=== PATIENT | male | born 1950 | race Caucasian/White ===

== ENCOUNTER 2019-09-07 04:36 | Observation (INO) | payer MEDICARE, SELFPAY ==
[2019-09-07] VITALS (7 sets, daily range): BP systolic 158–180; BP diastolic 78–89; PULSE 56–69; RESP 16–19; TEMP 36.1–36.9; O2SAT 97–100; BMI 35.6
--- NOTE | 2019-09-07 | ECHO_ITS ---
Patient Info Name: Charles Purcell Age: 69 years : 1950 Gender: Male Ht: 68 in Wt: 234 lbs BSA: 2.30 m2 HR: 64 bpm BP: 172 / 86 mmHg Technical Quality: Good Exam Date: 09/07/2019 9:35 AM Exam Location: [facility] Patient Status: Inpatient Admit Date: 09/07/2019 Staff Ordering Physician: Darien Galdamez MD Training And Development Professional: Manju Maurer RDCS Attending Provider: Clement Figueroa MD Exam Type: CA echo doppler color flow Study Info Indications R07.89 - Other chest pain Complete two-dimensional, color flow and Doppler transthoracic echocardiogram is performed. Summary 1. Normal LV size, moderate LVH, normal LV systolic function, ejection fraction 55-60%; indeterminate diastolic function. Trivial MR. Sclerotic, trileaflet aortic valve with normal leaflet mobility, Doppler not performed to the aortic valve. Trivial TR, RVSP about 28 mmHg. Left Ventricle Left ventricular chamber dimension is normal. Left ventricular systolic function is normal, estimated at 55-60%. There is moderately increased left ventricular wall thickness. Left ventricular septal wall motion is normal. The left ventricular diastolic function is indeterminate. Right Ventricle Right ventricular chamber dimension is normal. Right ventricular systolic function is normal. Left Atria Left atrial chamber dimension is mildly enlarged. Right Atria Right atrial chamber dimension is normal. Aortic Valve The aortic valve is trileaflet. There is mild aortic valve sclerosis. There is no aortic valve stenosis. There is no aortic valve regurgitation. Pulmonic Valve The pulmonic valve is normal. There is trace pulmonic regurgitation. Mitral Valve The mitral valve has normal leaflets. There is trace mitral valve regurgitation. Tricuspid Valve The tricuspid valve leaflets are normal. There is trace tricuspid valve regurgitation. No pulmonary hypertension, estimated pulmonary arterial systolic pressure is 28 mmHg. Pericardium/Pleural The pericardium appears normal. There is no pericardial effusion. Aorta The aortic root size at the sinus of Valsalva is normal. The prox ascending aorta size is normal. Tricuspid Valve Name Value Normal TV Regurgitation Doppler TR Peak Velocity 225 cm/s TR Peak Gradient 18 mmHg Estimated PAP/RSVP RA Pressure 8 mmHg <=5 PA Systolic Pressure 28 mmHg <36 RV Systolic Pressure 28 mmHg <36 Report Signatures
--- NOTE | ~2019-09-07 | XR_ITS ---
EXAMINATION: XR chest 2V DATE: 09/07/2019 05:15 INDICATION: Chest pain. TECHNIQUE: Frontal and lateral views of the chest were obtained. COMPARISON: Chest 2 views 08/02/2017 FINDINGS: The chest demonstrates clear lungs without pneumonia, pleural effusion, or pneumothorax. Th e heart size is normal. Calcified right hilar lymph nodes are consistent with old granulomatous disea se. IMPRESSION: 1. No acute cardiopulmonary disease. Reviewed, dictated and finalized at location A.
--- NOTE | 2019-09-07 05:36 | ECG_ITS ---
Measurements Intervals [place] Rate: 64 P: 33 ND: 157 QRS: -25 QRSD: 100 T: -35 QT: 419 QTc: 432 Interpretive Statements SINUS RHYTHM VENTRICULAR PREMATURE COMPLEX POSSIBLE LEFT ATRIAL ENLARGEMENT POSSIBLE LEFT VENTRICULAR HYPERTROPHY BORDERLINE T WAVE ABNORMALITY- INF/LAT LEADS BASELINE WANDER- I, II, AVR, AVL, V1-V3 BORDERLINE ECG Electronically Signed On 09-07-2019 7:01:02 CDT by Rocky Naidu D.O.
[2019-09-07 05:40] LABS: Basophils Percent Auto 0.6 % (0.2-1.2); Eosinophils Absolute Auto 0.1 K/mm3 (0-0.3); Hematocrit 42.5 % (42.0-52.0); Hemoglobin 13.7 g/dL (14.0-18.0); Immature Granulocyte Absolute 0.02 K/mm3 (0.00-0.031); Immature Granulocyte Percent A 0.3 % (0-0.5); Lymphocytes Absolute Auto 1.85 K/mm3 (0.9-3.2); Lymphocytes Percent Auto 26.3 % (18.3-44.2); Mean Corpuscular HGB Conc 32.2 g/dl (32-36); Mean Corpuscular Volume 93.2 fl (80-100); Mean Platelet Volume 11.3 fl (7.4-10.4); Monocytes Absolute Auto 0.8 K/mm3 (0.1-0.6); Monocytes Percent Auto 11.7 % (2.6-8.5); Neutrophils Absolute Auto 4.2 K/mm3 (1.3-6.7); Neutrophils Percent Auto 59.1 % (45.5-73.1); Platelet Count Result 218 k/mm3 (150-375); Red Blood Count 4.56 M/mm3 (4.6-6.20); Red Cell Distribution Width 13.5 % (11.5-14.5)
[2019-09-07 05:53] LABS: Alanine Aminotransferase 18 U/L (4-50); Albumin Level 3.9 g/dL (3.5-5.1); Alkaline Phosphatase 30 U/L (38-126); Aspartate Amino Transferase 23 U/L (17-59); Bilirubin,Total 0.3 mg/dL (0.2-1.3); Blood Urea Nitrogen 14 mg/dL (9-20); Calcium 8.9 mg/dL (8.4-10.2); Carbon Dioxide 30 mmol/L (22-30); Chloride 100 mmol/L (98-107); Estimated Glomerular Filt Rate > 60; Glucose 144 mg/dL (75-110); Potassium 3.7 mmol/L (3.4-5.0); Sodium 137 mmol/L (137-145)
--- NOTE | 2019-09-07 05:54 | ED.CHESTPAIN ---
HPI - Chest Pain General Chief Complaint: Chest Pain <Andrew Adams MD - Last Filed: 09/08/19 04:22> Stated Complaint: pain behind the boobs <Andrew Adams MD - Last Filed: 09/08/19 04:22> Time Seen by Provider: 09/07/19 05:06 <Andrew Adams MD - Last Filed: 09/08/19 04:22> History of Present Illness HPI narrative: Patient is a 69-year-old male who presents the ER with chest pain. Been intermittent over the last 3 days. Will last anywhere from 5 minutes to 60 minutes. Is directly behind his boobs. Denies exertional component. Patient reports he is under increased stress as his has stage IV breast cancer. He reports he returned from [facility] 10 days ago. Denies any infectious symptoms. Has not found an aggravating or alleviating component to it. No h/o [place]. <Andrew Adams MD - Last Filed: 09/08/19 04:22> Related Data Home Medications: Home Medications Medication Instructions Recorded Confirmed Glucosamine Complex-MSM 1 cap PO DAILY 09/07/19 09/07/19 lisinopril-hydrochlorothiazide 1 tablet PO DAILY 09/07/19 09/07/19 <Andrew Adams MD - Last Filed: 09/08/19 04:22> Allergies/Adverse Reactions: Allergies Allergy/AdvReac Type Severity Reaction Status Date / Time No Known Allergies Allergy Mild Verified 09/07/19 10:03 <Andrew Adams MD - Last Filed: 09/08/19 04:22> Review of Systems Review of Systems: All systems reviewed & are unremarkable except as noted in HPI and below <Andrew Adams MD - Last Filed: 09/08/19 04:22> Constitutional: Constitutional: Denies chills, Denies fever(s) and Denies weakness <Andrew Adams MD - Last Filed: 09/08/19 04:22> ENT: Denies nasal congestion and Denies sore throat <Andrew Adams MD - Last Filed: 09/08/19 04:22> Cardiovascular: Cardiovascular: Reports chest pain and Denies radiating jaw, neck or arm pain <Andrew Adams MD - Last Filed: 09/08/19 04:22> Respiratory: Respiratory: Denies cough, Denies dyspnea and Denies wheezing <Andrew Adams MD - Last Filed: 09/08/19 04:22> Gastrointestinal: Gastrointestinal: Denies abdominal pain, Denies nausea and Denies vomiting <Andrew Adams MD - Last Filed: 09/08/19 04:22> PMFSH Past Medical History Medical History: Medical History (Updated 09/07/19 @ 18:10 by Clement Figueroa MD) BPH (benign prostatic hyperplasia) Hypertension Hypertension <Andrew Adams MD - Last Filed: 09/08/19 04:22> Surgical History Surgical History: Surgical History (Updated 09/07/19 @ 09:28 by Clement Figueroa MD) H/O colonoscopy History of nasal septoplasty <Andrew Adams MD - Last Filed: 09/08/19 04:22> Family History Family History: Family History Other Hypertension <Andrew Adams MD - Last Filed: 09/08/19 04:22> Social History Social History: Social History (Updated 09/07/19 @ 09:31 by Clement Figueroa MD) 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 HEAD: Normocephalic, atraumatic. ENT: Mucous membranes moist. CHEST: Clear to auscultation. No respiratory distress. HEART: Regular rate and rhythm. Normal peripheral pulses. ABDOMEN: Soft, nontender, nondistended EXTREMITIES: Normal range of motion. No edema. SKIN: Warm, dry, no rash. NEURO: Alert and oriented x3. PSYCH: Normal mood and affect. <Andrew Adams
[2019-09-07 05:55] LABS: INR 0.9; Prothrombin Time 12.2 Seconds (11.1-14.7)
[2019-09-07 05:56] LABS: Partial Thromboplastin Time 28.1 SECONDS (22.3-36.8)
[2019-09-07 06:06] LABS: Troponin I < 0.012 ng/mL (0.000-0.034)
[2019-09-07] MEDS: lisinopriL 20 MG TABLET PO (06:55)
[2019-09-07] MEDS: ASPIRIN 81 MG CHEWABLE TABLET 324 MG PO (06:55)
[2019-09-07] MEDS: hydroCHLOROthiazide 12.5 MG CAPSULE PO (07:04)
--- NOTE | 2019-09-07 08:44 | PM.CNCAR ---
Assessment and Plan Assessment and plan (1) Chest pain: Code(s): R07.9 - Chest pain, unspecified Status: Acute Assessment and Plan: 69-year-old male with no known prior cardiac history; history of hypertension, BPH presents with 3-4 day history of intermittent chest discomfort, not related to exertion. First set of troponins negative. EKG shows sinus rhythm, nonspecific T-wave abnormality in the inferolateral leads. Patient reports psychosocial stress related to illness of his . -trend troponins -will check echocardiogram with Doppler to assess LV function and wall motion. If echocardiogram is grossly unremarkable and 2nd set of troponins negative, then patient may be discharged home with an outpatient follow-up. Need for further ischemic workup will be based on patient's clinical course. (2) Hypertension: Code(s): I10 - Essential (primary) hypertension Status: Acute Assessment and Plan: Optimal blood pressure control History of Present Illness History of Present Illness Consult date/time: 09/07/19 08:44 Date of consult 09/07/2019 Reason for consult: Chest pain Requesting physician:Dr Perdomo Chief complaint: Chest pain HPI: 69-year-old male with hypertension, BPH. Patient was admitted to [facility] on 09/06/2020 complaints of chest discomfort. Patient states that he has been experiencing chest discomfort for 3-4 days, which she describes as dull aching sensation in the left mammary area, localized, not associated with shortness of breath, palpitation, dizziness or syncope. He has had intermittent episodes of chest discomfort over last 3-4 days, each time lasting for up to 2 hours, not related to exertion. Patient states that he recently traveled to [place] for about 10 days ago, however denies any sick contacts. He denies any fever, chills, cough, sore throat or nasal congestion. Patient denies any prior cardiac history. Patient states that he is undergoing emotional stress due to the illness of his . He thinks that his symptoms are triggered by ongoing emotional stress. Patient's EKG on this admission which I personally evaluated showed sinus rhythm, PVC, LVH, T-wave abnormality in the inferolateral leads. Troponin x1 is negative. Chest x-ray reportedly shows Calcified right hilar lymph nodes are consistent with old granulomatous disease, no active disease. Reason For Visit: chest pain/Hypertension Review of Systems Constitutional: Constitutional: Denies chills, Denies fatigue, Denies fever(s) and Denies headache(s) Eyes: Eyes: Reports as per HPI, Denies change in vision, Denies loss of vision and Denies eye pain ENT: Reports as per HPI, Reports Normal hearing present, Denies headache(s), Denies lip swelling, Denies epistaxis and Denies sore throat Cardiovascular: Cardiovascular: Reports as per HPI, Reports chest pain, Denies syncope, Denies irregular heart rhythm, Denies lightheadedness and Denies dyspnea Respiratory: Respiratory: Reports as per HPI, Denies cough, Denies dyspnea and Denies wheezing Gastrointestinal: Gastrointestinal: Reports as per HPI, Denies abdominal pain, Denies melena, Denies nausea and Denies vomiting Genitourinary: Genitourinary: Reports as per HPI Musculoskeletal: Musculoskeletal: Reports as per HPI, Denies myalgias, Denies muscle cramps and Denies muscle weakness Integumentary/Breasts: Skin/Breast: Reports as per HPI, Denies pruritus and Denies rash Neurologic: Reports as per HPI, Reports Normal hearing present, Denies behavioral changes, Denies syncope, Denies headache(s) and Denies loss of vision Psychiatric: Psychiatric: Reports as per HPI, Reports anxiety, Denies behavioral changes, Denies depression and Reports other (Emotional stress due to illness of his ) Endocrine: Endocrine: Reports as per HPI, Denies fatigue, Denies polydipsia and Denies polyuria Hematologic/Lymphatic: Hematologic/Lymphatic: Reports as per HPI, Denies easy blee
[2019-09-07 09:29] LABS: Troponin I < 0.012 ng/mL (0.000-0.034)
--- NOTE | 2019-09-07 09:39 | PM.IMHP ---
H&P: HPI History of Present Illness Chief complaint: chest pain/Hypertension Narrative: Date of visit 09/06 0900. Charles Purcell is a 69 year old hypertensive white male came to the hospital for evaluation of chest discomfort. He describes the discomfort is someone pushing on his chest that is been occurring intermittently over the last 3-4 days lasting for short time upwards of 3 hours. No associated symptoms of shortness of breath, nausea ,or diaphoresis and no particular activity. Can occur at rest. Talked to a friend thought he should be evaluated and he was awake early this a.m. had had some discomfort then thought he would come in to be seen. The discomfort had not gotten any worse. He is a nonsmoker although has had secondhand exposure in the past with his 1st who of lung cancer and his father had heart disease and at age 69, but he was not sure if he had coronary disease. He has had hypertension but no history of diabetes or hyperlipidemia. Pain is not positional or associated with eating and has no reflux. Review of Systems Review of Systems: Narrative: Constitutional. Gained about 10 lb over last few months with less activity, no fever no chills. Had just returned from [place] about 10 days ago Eye no double vision scotoma Mouth no pharyngitis laryngitis Pulmonary no shortness of breath wheezing or cough CV no palpitations or pedal edema little bit has NC with the urination but has done much better since he has been on Flomax GI no melena no hematochezia has had 2 screening colonoscope sitter been negative Muscle skeletal bilateral knee discomfort when climbing stairs Integument no skin breakdown rashes Neuro psych stress recently with the illness of his and stage IV breast cancer No seizures no syncope PMFSH Past Medical History Medical History BPH (benign prostatic hyperplasia) Hypertension Hypertension Surgical History Surgical History (Updated 09/07/19 @ 09:28 by Clement Figueroa MD) H/O colonoscopy History of nasal septoplasty Family History Family History (Updated 09/07/19 @ 09:29 by Clement Figueroa MD) Father Heart disease Hypertension Mother No problems noted. 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: Never smoker Additional smoking assessment comments: smokes rare cigar and exposed to second hand smoke from first Alcohol intake: current Alcohol use details: Occasional alcohol Substance use: never Living arrangements: with family Gender identity (if verbalized by the patient): Male Meds Home Medications and Allergies Home Medications Medication Instructions Recorded Confirmed Type tamsulosin [Flomax] 0.4 mg PO DAILY #14 cap 06/17/19 Rx Allergies Allergy/AdvReac Type Severity Reaction Status Date / Time No Known Allergies Allergy Mild Verified 06/17/19 03:22 Vital Signs Vital Signs - 24 hr 09/07/19 05:02 09/07/19 05:57 09/07/19 06:51 Temperature 36.9 C Pulse Rate 69 60 61 Respiratory Rate 18 17 17 Blood Pressure 176/84 H 175/87 H 180/78 H Pulse Oximetry 100 99 97 09/07/19 07:55 09/07/19 08:10 Temperature 36.1 C L Pulse Rate 56 L 64 Respiratory Rate 19 16 Blood Pressure 158/89 H 172/86 H Pulse Oximetry 98 100 Exam Narrative: Exam Narrative: Blood pressure 160/84 left arm lying pulse is 72 and regular afebrile Pupils equal reactive to light sclera anicteric Neck no adenopathy thyromegaly carotid bruits Lungs clear CV regular rate rhythm no murmurs gallops rubs or clicks Abdomen is soft nontender obese no masses Extremities trace edema with indentation sock line, dorsalis pedis posterior tibial 2+ Neuro alert pleasant cooperative cranial nerves 2-12 are intact Integument no rashes are lesions Psych affect ap
[2019-09-07 11:53] LABS: Hemoglobin A1C 7.2 % (<5.7)
[2019-09-07 12:02] LABS: Troponin I < 0.012 ng/mL (0.000-0.034)
--- NOTE | 2019-09-07 18:06 | PM.DS ---
DS: Diagnosis Admitting Diagnosis Admitting Diagnosis: Chest pain, unspecified Discharge Diagnosis (1) Chest pain: Code(s): R07.9 - Chest pain, unspecified Status: Acute Assessment and Plan: Suggestive of cardiac pain but duration had no associated symptoms with the fact that the troponins her still negative makes cardiac etiology less likely. Cardiology saw and echo reveal LVH only, serial troponins are negative will discharge with possible out patient ischemic workup with cardiology to follow (2) Hypertension: Code(s): I10 - Essential (primary) hypertension Status: Acute Assessment and Plan: Pressure slightly elevated. Better than when he was in the ER after receiving lisinopril and hydrochlorothiazide there. Echo LVH present and will follow up with primary care (3) Elevated blood sugar: Code(s): R73.9 - Hyperglycemia, unspecified Status: Acute Assessment and Plan: Blood sugar on more than 1 draw was slightly elevated. A1c returned after he was discharged and was 7.2 . Will need follow-up with his primary care DS: Summary Hospital Course Hospital Course: 69-year-old hypertensive white male admitted with full pressure sensation in his chest intermittently less 3-4 days. No associated symptoms. EKG no definite ischemic changes just some nonspecific ST T wave. Echo LVH but no wall motion abnormalities and normal ejection fraction 65%. Seen by Cardiology and recommended he follow-up for possible outpatient ischemic workup Patient did admit to being under a fair amount of stress recently with illness of his Did add aspirin 81 mg to his regime, and follow-up with primary for blood pressure check also Time Spent with Patient Time attestation: Total time spent providing and/or coordinating discharge services:35 Exam Narrative: Exam Narrative: Condition on discharge Blood pressure 160/82 pulse is 70 afebrile Lungs clear Neck supple no adenopathy thyromegaly carotid bruits CV regular rate rhythm no murmurs Extremities without edema to minor trace edema DS: Data Data Completed and Pending Labs on day of discharge: Labs from last 24 hours 09/07/19 09/07/19 09/07/19 11:31 11:31 08:29 WBC RBC Hgb Hct MCV MCH MCHC RDW Plt Count MPV Immature Gran % (Auto) Neut % (Auto) Lymph % (Auto) [place] % (Auto) Eos % (Auto) Baso % (Auto) Lymph # (Auto) [place] # (Auto) Eos # (Auto) Baso # (Auto) Abs Immat Gran (auto) Absolute Neuts (auto) Absolute Nucleated RBC Nucleated RBC % PT INR APTT Sodium Potassium Chloride Carbon Dioxide BUN Creatinine Estim Creat Clear Calc Estimated GFR Glucose Hemoglobin A1c 7.2 H Calcium Total Bilirubin AST ALT Alkaline Phosphatase Troponin I < 0.012 < 0.012 Total Protein Albumin 09/07/19 09/07/19 09/07/19 05:31 05:31 05:31 WBC 7.0 RBC 4.56 L Hgb 13.7 L Hct 42.5 MCV 93.2 MCH 30.0 MCHC 32.2 RDW 13.5 Plt Count 218 MPV 11.3 H Immature Gran % (Auto) 0.3 Neut % (Auto) 59.1 Lymph % (Auto) 26.3 [place] % (Auto) 11.7 H Eos % (Auto) 2.0 Baso % (Auto) 0.6 Lymph # (Auto) 1.85 [place] # (Auto) 0.8 H Eos # (Auto) 0.1 Baso # (Auto) 0.0 Abs Immat Gran (auto) 0.02 Absolute Neuts (auto) 4.2 Absolute Nucleated RBC 0.0 Nucleated RBC % 0.0 PT 12.2 INR 0.9 APTT 28.1 Sodium 137 Potassium 3.7 Chloride 100 Carbon Dioxide 30 BUN 14 Creatinine 0.90 Estim Creat Clear Calc Not Reportable Estimated GFR > 60 Glucose 144 H Hemoglobin A1c Calcium 8.9 Total Bilirubin 0.3 AST 23 ALT 18 Alkaline Phosphatase 30 L Troponin I < 0.012 Total Protein 7.0 Albumin 3.9 Discharge Plan Discharge Attending physician on discharge: Clement Figueroa Consulting prov
== END 2019-09-07 11:45 | disposition home or self-care (01) ==
LOC: ANHED 07:39 → ANHIMU 07:43
PROVIDERS: Emergency Medicine; Admitting Provider Internal Medicine; Emergency Provider General Practice; Visit Provider Internal Medicine
DX: R07.9 Chest pain, unspecified (principal); I10 Essential (primary) hypertension; R73.9 Hyperglycemia, unspecified; N40.0 Benign prostatic hyperplasia without lower urinary tract symptoms; Z82.49 Family history of ischemic heart disease and other diseases of the circulatory system
CPT/HCPCS: 36415; 71046; 80053; 83036; 84484; 85025; 85610; 85730; 93005; 93306; 99285; A9270; G0378

== ENCOUNTER 2020-04-22 06:48 | Emergency (ER) | payer MEDICARE, SELFPAY ==
--- NOTE | ~2020-04-22 | US_ITS ---
EXAMINATION: US venous doppler LE RT EXAM DATE: 04/22/2020 10:12 INDICATION: TECHNIQUE: Multiple grayscale, color flow and Doppler images of the right lower extremity deep venous system were obtained and reviewed. There is no prior study for comparison. FINDINGS: The right common femoral, femoral and profunda veins demonstrate normal color flow, respira tory variation, augmentation and compressibility. Compressibility, color flow confirmed within the r ight popliteal, posterior tibial, peroneal, and greater saphenous veins. IMPRESSION: 1. No right lower extremity deep venous thrombosis. Reviewed, dictated and finalized at location A. [facility]ER[facility] DENTAL ASSISTANT RDA
[2020-04-22 06:54] VITALS: BP 178/97; PULSE 54; RESP 14; TEMP 35.9; O2SAT 100
[2020-04-22 08:45] LABS: Add Urine Microscopic? YES; Appearance Urine Clear (Clear); Basophils Absolute Auto 0.1 K/mm3 (0.0-0.1); Basophils Percent Auto 0.9 % (0.2-1.2); Bilirubin Urine Negative (Negative); Blood Urine Negative (Negative); Color Urine Yellow (Yellow); Eosinophils Absolute Auto 0.3 K/mm3 (0-0.3); Eosinophils Percent Auto 4.9 % (0-4.4); Glucose Urine UA 1+ mg/dL (Negative); Hematocrit 40.9 % (42.0-52.0); Hemoglobin 13.2 g/dL (14.0-18.0); Immature Granulocyte Absolute 0.02 K/mm3 (0.00-0.031); Immature Granulocyte Percent A 0.3 % (0-0.5); Ketones Urine Negative (Negative); Leukocyte Esterase Ur Negative LEU/UL (Negative); Lymphocytes Absolute Auto 1.76 K/mm3 (0.9-3.2); Lymphocytes Percent Auto 27.6 % (18.3-44.2); Mean Corpuscular HGB Conc 32.3 g/dl (32-36); Mean Corpuscular Hemoglobin 30.6 pg (26-34); Mean Corpuscular Volume 94.9 fl (80-100); Mean Platelet Volume 11.1 fl (7.4-10.4); Monocytes Absolute Auto 0.8 K/mm3 (0.1-0.6); Monocytes Percent Auto 12.9 % (2.6-8.5); Neutrophils Absolute Auto 3.4 K/mm3 (1.3-6.7); Neutrophils Percent Auto 53.4 % (45.5-73.1); Nitrate Urine Negative (Negative); Platelet Count Result 204 k/mm3 (150-375); Protein Urine Negative (Negative); RBC Urine 0-2 /hpf (0-2); Red Blood Count 4.31 M/mm3 (4.6-6.20); Specific Grav Ur 1.018 (1.001-1.035); Urobilinogen Urine Negative mg/dL (<2.0); WBC Urine 0-3 /hpf; White Blood Count 6.4 K/mm3 (4.5-10.0)
[2020-04-22 08:56] LABS: Alanine Aminotransferase 19 U/L (4-50); Alkaline Phosphatase 29 U/L (38-126); Anion Gap 5 mmol/L (8-16); Aspartate Amino Transferase 24 U/L (17-59); Bilirubin,Total 0.4 mg/dL (0.2-1.3); Blood Urea Nitrogen 16 mg/dL (9-20); Calcium 9.2 mg/dL (8.4-10.2); Carbon Dioxide 33 mmol/L (22-30); Chloride 99 mmol/L (98-107); Estimated Glomerular Filt Rate > 60; Glucose 176 mg/dL (75-110); Sodium 137 mmol/L (137-145)
--- NOTE | 2020-04-22 09:02 | ED.GENADULT ---
HPI - General Adult General Chief complaint: Unspecified Stated complaint: sharp pain in right groin Time Seen by Provider: 04/22/20 07:30 Source: patient Mode of arrival: ambulatory Limitations: no limitations History of Present Illness HPI narrative: This patient is a 69 year old male who presents for evaluation of right inner thigh pain this morning. . He reports he had sudden onset sharp pain to right outer thigh and right inner thigh this morning. He states this pain only last a few minutes. His pain has resolved now. He denies associated fever, chills, abdominal pain, back pain, buttock pain, leg weakness. HE denies having similar pain in the past. Related Data Home Medications Medication Instructions Recorded Confirmed Glucosamine Complex-MSM 1 cap PO DAILY 09/07/19 09/07/19 lisinopril-hydrochlorothiazide 1 tablet PO DAILY 09/07/19 09/07/19 Allergies Allergy/AdvReac Type Severity Reaction Status Date / Time No Known Allergies Allergy Mild Verified 04/22/20 07:23 Review of Systems Review of Systems: Narrative: CONSTITUTIONAL: Denies fever, chills, or sweats. EYES: Denies visual changes, redness, or discharge. ENT: Denies rhinorrhea, congestion, sore throat, or otalgia. CARDIOVASCULAR: Denies chest pain, palpitations, or edema. RESPIRATORY: Denies cough or dyspnea. GASTROINTESTINAL: Denies abdominal pain, nausea, vomiting, or diarrhea. GENITOURINARY: Denies dysuria or hematuria. SKIN: Denies rash or itching. MUSCULOSKELETAL: Denies back pain, joint pain, NEUROLOGIC: Denies headache, numbness, or weakness. PSYCHIATRIC: Denies anxiety or depression. All systems reviewed & are unremarkable except as noted in HPI and below PMFSH Past Medical History Medical History (Updated 04/22/20 @ 10:47 by Bri Perdomo MD) BPH (benign prostatic hyperplasia) Hypertension Hypertension Surgical History Surgical History (Updated 09/07/19 @ 09:28 by Clement Figueroa MD) H/O colonoscopy History of nasal septoplasty Family History Family History Father Heart disease Hypertension Mother No problems noted. 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 HEAD: Normocephalic, atraumatic EYES: PERRLA and EOMI, conjunctiva clear without discharge NECK: Supple, without lymphadenopathy or mass RESPIRATORY: No respiratory distress, Airway patent, Respirations non-labored, Clear to auscultation without rales, rhonchi or wheeze HEART: Regular rate and rhythm. No murmur heard. Normal peripheral pulses. ABDOMEN: Soft, nontender, nondistended, normal active bowel sounds. No masses. No rebound or guarding, No organomegaly. EXTREMITIES: No edema, normal strength with full range of motion. SKIN: Warm, dry, normal color without rash NEURO: Alert and oriented x3. CN 2-12 grossly intact. No focal deficits. PSYCH: Normal mood and affect. : Penis: Yes normal penis Meatus: meatus normal Testes: Testes normal Course Reevaluation(s) Reevaluation #1: PAtient still denies pain. I discussed no DVT. He has strong pulses in right femoral and right pedal pulse. He has full ROM of his leg. No neurological deficits. He has not additional questions. Date: 04/22/20 Time: 10:45 Vital Signs Vital signs: Vital Signs Temperature 96.6 F L 04/22/20 06:54 Pulse Rate 54 L 04/22/20 06:54 Respiratory Rate 14 04/22/20 06:54 Blood Pressure 178/97 H 04/22/20 06:54 Pulse Oximet
[2020-04-22 09:03] VITALS: BP 157/70; PULSE 78
[2020-04-22 10:54] VITALS: BP 145/86; PULSE 89; O2SAT 98
== END 2020-04-22 10:55 | disposition home or self-care (01) ==
PROVIDERS: Emergency Provider General Practice; PCP Internal Medicine
DX: M79.651 Pain in right thigh (principal); N40.0 Benign prostatic hyperplasia without lower urinary tract symptoms; I10 Essential (primary) hypertension
CPT/HCPCS: 36415; 80053; 81001; 85025; 93971; 99284

== ENCOUNTER 2021-11-12 06:29 | Emergency (ER) | payer MEDICARE, SELFPAY ==
[2021-11-12 06:31] VITALS: BP 142/73; PULSE 64; RESP 18; TEMP 36.3; O2SAT 97
--- NOTE | 2021-11-12 07:27 | ED.BACK ---
HPI - Back Pain/Injury General Chief Complaint: Back Pain/Injury Stated Complaint: rt lower back pain Time Seen by Provider: 11/12/21 06:59 Source: patient and RN notes reviewed Mode of arrival: ambulatory Limitations: no limitations History of Present Illness HPI Narrative: This is a 71 year old male with history of DM, hypertension and sciatica who presents for evaluation of right lower back pain. Patient states at 4 am he felt right lower back pain at his beltline that he describes as like being punched . He states this pain resolved and it returned again prior to coming to ER. He denies having any pain now. His pain does not radiate to abdominal pain, down legs or groin. His pain is not associated with nausea, vomiting, dizziness, leg weakness, numbness or tingling. He also denies dysuria or hematuria. He denies history of DVT, PE or aneurysm. He has not taken anything for pain. He states a few months ago he had treatment for sciatica which was in same location. MD elicited complaint: back pain Related Data Home Medications Medication Instructions Recorded Confirmed [id number] 1 cap PO DAILY 09/07/19 09/07/19 capsule (Glucosamine Complex-MSM capsule) lisinopril 20 1 tablet PO DAILY 09/07/19 09/07/19 mg-hydrochlorothiazide 12.5 mg tablet Allergies Allergy/AdvReac Type Severity Reaction Status Date / Time No Known Allergies Allergy Mild Verified 04/22/20 07:23 Review of Systems Review of Systems: All systems reviewed & are unremarkable except as noted in HPI and below Constitutional: Constitutional: Denies chills, Denies fatigue and Denies fever(s) Cardiovascular: Cardiovascular: Denies chest pain Respiratory: Respiratory: Denies chest congestion, Denies cough and Denies dyspnea Gastrointestinal: Gastrointestinal: Denies abdominal pain, Denies diarrhea, Denies nausea and Denies vomiting Genitourinary: Genitourinary: Denies hematuria, Denies dysuria, Denies testicular pain and Denies urinary frequency Musculoskeletal: Musculoskeletal: Reports back pain, Denies joint swelling and Denies muscle cramps Neurologic: Denies dizziness, Denies syncope, Denies focal weakness, Denies numbness and Denies weakness PMFSH Past Medical History Medical History (Updated 11/12/21 @ 07:35 by Bri Perdomo MD) Anxiety BPH (benign prostatic hyperplasia) Diabetes mellitus Hyperlipidemia Hypertension Surgical History Surgical History (Updated 09/07/19 @ 09:28 by Clement Figueroa, ) H/O colonoscopy History of nasal septoplasty Family History Family History Father Heart disease Hypertension Mother No problems noted. 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 [employer] Smoking status: Never smoker Additional smoking assessment comments: smokes rare cigar and exposed to second hand smoke from first Alcohol intake: never Alcohol use details: Occasional alcohol Substance use: never Gender identity (if verbalized by the patient): Male Spiritual care concerns: No Exam Const: General: no acute distress and alert Nutritional Appearance: well nourished Orientation/consciousness: patient oriented x3 Limitations: no limitations HENMT: Face and sinus: normal facial exam Eyes: EOM: EOMs intact bilaterally Resp: Effort & Inspection: normal respiratory effort Auscultation: clear to auscultation bilaterally and breath sounds present Cardio: Rate: regular rate Rhythm: regular rhythm Heart sounds: no murmurs Other: bilateral palpable PT/DP pulses GI: GI Palp: Yes Soft to palpation, No Tenderness to palpation present (GI), No Guarding due to palpation present (GI) and No Rigid due to palpation Auscultation: normal bowel sounds : General: Yes no CVA tenderness Back/
[2021-11-12 07:40] VITALS: BP 126/85; PULSE 73; RESP 18; O2SAT 96
== END 2021-11-12 07:40 | disposition home or self-care (01) ==
PROVIDERS: Emergency Provider General Practice
DX: M54.30 Sciatica, unspecified side (principal); E11.9 Type 2 diabetes mellitus without complications; I10 Essential (primary) hypertension; E78.5 Hyperlipidemia, unspecified
CPT/HCPCS: 99281

== ENCOUNTER 2024-02-25 13:44 | Outpatient (CLI) | payer MEDICARE, SELFPAY ==
[2024-02-25 18:35] LABS: Basophils Percent Auto 0.7 % (0.2-1.2); Eosinophils Absolute Auto 0.2 K/mm3 (0-0.3); Eosinophils Percent Auto 3.7 % (0-4.4); Hematocrit 40.5 % (42.0-52.0); Hemoglobin 12.7 g/dL (14.0-18.0); Immature Granulocyte Absolute 0.01 K/mm3 (0.00-0.031); Immature Granulocyte Percent A 0.2 % (0-0.5); Lymphocytes Absolute Auto 1.66 K/mm3 (0.9-3.2); Lymphocytes Percent Auto 29.5 % (18.3-44.2); Mean Corpuscular HGB Conc 31.4 g/dl (32-36); Mean Corpuscular Volume 95.7 fl (80-100); Mean Platelet Volume 11.5 fl (7.4-10.4); Monocytes Absolute Auto 0.5 K/mm3 (0.1-0.6); Monocytes Percent Auto 9.3 % (2.6-8.5); Neutrophils Absolute Auto 3.2 K/mm3 (1.3-6.7); Neutrophils Percent Auto 56.6 % (45.5-73.1); Platelet Count Result 225 k/mm3 (150-375); Red Blood Count 4.23 M/mm3 (4.6-6.20); Red Cell Distribution Width 13.5 % (11.5-14.5); White Blood Count 5.6 K/mm3 (4.5-10.0)
[2024-02-25 18:45] LABS: Creatinine Urine 134.3 mg/dL
[2024-02-25 18:49] LABS: MALB Creatinine Ratio 6.9 mg/g (0-30); Microalbumin Urine Random 9.3 mg/L (0-16.7)
[2024-02-25 19:32] LABS: Alanine Aminotransferase 20 U/L (6-50); Alkaline Phosphatase 29 U/L (38-126); Anion Gap 5 mmol/L (4-12); Aspartate Amino Transferase 33 U/L (17-59); Bilirubin,Total 0.4 mg/dL (0.2-1.3); Blood Urea Nitrogen 17 mg/dL (9-20); Calcium 9.4 mg/dL (8.4-10.2); Carbon Dioxide 31 mmol/L (22-30); Chloride 98 mmol/L (98-107); Cholesterol 136 mg/dL (0-200); Estimated Glomerular Filt Rate > 60; Glucose 187 mg/dL (65-110); HDL Direct 57 mg/dL; Potassium 4.1 mmol/L (3.4-5.0); Sodium 134 mmol/L (137-145); Triglycerides 132 mg/dL (<150)
[2024-02-25 19:44] LABS: LDL Cholesterol Direct 58 mg/dL
[2024-02-25 21:26] LABS: Hemoglobin A1C 8.3 % (<5.7)
[2024-02-25 21:33] LABS: Prostate Specific Antigen 3.1 ng/mL (< OR = 4.0)
[2024-02-25 22:46] LABS: Vitamin D 25 Hydroxy 28.8 ng/mL
== END 2024-02-25 13:45 | disposition home or self-care (01) ==
LOC: ANHGOSHLAB 13:46
PROVIDERS: PCP Nurse Practitioner Family; Visit Provider Nurse Practitioner Family
DX: Z12.5 Encounter for screening for malignant neoplasm of prostate (principal); E78.5 Hyperlipidemia, unspecified; I10 Essential (primary) hypertension; E11.9 Type 2 diabetes mellitus without complications; E55.9 Vitamin D deficiency, unspecified
CPT/HCPCS: 36415; 80053; 80061; 82043; 82306; 83036; 84153; 84443; 85025; G0103

== ENCOUNTER 2024-11-10 14:17 | Outpatient (CLI) | payer MEDICARE, SELFPAY ==
--- NOTE | ~2024-11-10 | XR_ITS ---
Right Shoulder Technique: AP and scapular Y views were obtained. Clinical History: Pain Findings: No fracture or dislocation is seen. Osseous alignment is anatomic. The glenohumeral joint i s intact. There is ipls-fl-yiyvcuat AC joint degenerative change. Soft tissues are unremarkable. Impression: Xnsg-li-ibmopyry AC joint degenerative change. Reviewed, dictated and finalized at location . Impression: Hdpf-wq-kpdwuqgi AC joint degenerative change.
== END 2024-11-10 14:18 | disposition home or self-care (01) ==
LOC: GOSHIMG 14:17
PROVIDERS: PCP Family Medicine; Visit Provider Family Medicine
DX: M19.011 Primary osteoarthritis, right shoulder (principal); M25.511 Pain in right shoulder; G89.29 Other chronic pain
CPT/HCPCS: 73030

== ENCOUNTER 2024-11-10 14:35 | Outpatient (CLI) | payer MEDICARE, SELFPAY ==
--- OUTSIDE RECORDS SUMMARY | 2024-11-10 17:17 | XMS_ITS | Encounter Summary ---
Author Organization [facility] Address 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 LAST VISIT: 05/15/05 PCP: maria eugenia WHO CALLED: Pharmacy called. PHARMACY NUMBER: [phone] SECTION 1: REQUESTED ACTION maia 07/12/05 at 10:12 am: MEDICATION REQUEST: MEDICATION REQUEST: Patient requests a refill. MEDICATIONS: LISINOPRIL ORAL TABLET 40 MG, 1 Every Morning, 30 Dispensed, 5 Fills, 30 Duration/Days Supply, status: NEW PRESCRIPTION, 01/11/2005. Pharm asking for Lisinopril 20mg # 30 L/R 11/25 Ok to refill? /lashon need chart FINAL ACTION: [facility] 07/12/05 at 01:22 pm in office/laney SECTION 2: RN/FISHING ROD MARKER [facility] MEDICATIONS: LISINOPRIL ORAL TABLET 40 MG, 1 Every Morning, 30 Dispensed, 5 Fills, 30 Duration/Days Supply, status: DISCONTINUED, 07/12/2005. LISINOPRIL ORAL TABLET 20 MG, 1 Every Day, 30 Dispensed, 3 Fills, 30 Duration/Days Supply, status: NEW PRESCRIPTION, 07/12/2005. FINAL ACTION: [facility] 07/12/05 at 01:34 pm Called pharmacy at 07/12/05 at 01:34 pm. ritchie/laney Electronically Signed by: Laney Diaz on Tuesday, July 12, 2005 documented in this encounter Plan of Treatment Not on file documented as of this encounter Visit Diagnoses Not on filedocumented in this encounter Care Teams Promotions Assistant Sales Marketing Relationship Specialty Start Date End Date Greg Arnold MD PCP - General Family Practice 11/04/23 02/17/24 documented as of this encounter
--- OUTSIDE RECORDS SUMMARY | 2024-11-10 17:17 | XMS_ITS | Encounter Summary ---
Author Organization [facility] Address 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
--- OUTSIDE RECORDS SUMMARY | 2024-11-10 17:17 | XMS_ITS | Encounter Summary ---
Author Organization [facility] Address 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 Gender Identity Not on file Sexual Orientation Not on file documented as of this encounter Last Filed Vital Signs Vital Sign Reading Time Taken Comments Blood Pressure 140/94 01/11/2005 9:30 AM CDT Pulse - - Temperature 36.3 C (97.3 F) 01/11/2005 9:30 AM CDT Respiratory Rate - - Oxygen Saturation - - Inhaled Oxygen Concentration - - Weight 98.4 kg (217 lb) 01/11/2005 9:30 AM CDT Height - - Body Mass Index - - documented in this encounter Plan of Treatment Not on file documented as of this encounter Visit Diagnoses Not on filedocumented in this encounter Care Teams Workday Financials Consultant Relationship Specialty Start Date End Date Greg Arnold MD PCP - General Family Practice 11/04/23 02/17/24 documented as of this encounter
--- OUTSIDE RECORDS SUMMARY | 2024-11-10 17:17 | XMS_ITS | Encounter Summary ---
Author Organization [facility] Address 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
--- OUTSIDE RECORDS SUMMARY | 2024-11-10 17:17 | XMS_ITS | Encounter Summary ---
Author Organization [facility] Address 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 Gender Identity Not on file Sexual Orientation Not on file documented as of this encounter Last Filed Vital Signs Vital Sign Reading Time Taken Comments Blood Pressure 148/80 08/05/2005 3:00 PM COMPUTER GAME DESIGNER Pulse - - Temperature 36.6 C (97.9 F) 08/05/2005 3:00 PM COMPUTER GAME DESIGNER Respiratory Rate - - Oxygen Saturation - - Inhaled Oxygen Concentration - - Weight 100.2 kg (221 lb) 08/05/2005 3:00 PM COMPUTER GAME DESIGNER Height - - Body Mass Index - - documented in this encounter Plan of Treatment Not on file documented as of this encounter Visit Diagnoses Not on filedocumented in this encounter Care Teams Outpatient Case Manager Relationship Specialty Start Date End Date Greg Arnold MD PCP - General Family Practice 11/04/23 02/17/24 documented as of this encounter
--- OUTSIDE RECORDS SUMMARY | 2024-11-10 17:17 | XMS_ITS | Encounter Summary ---
Author Organization [facility] Address 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
--- OUTSIDE RECORDS SUMMARY | 2024-11-10 17:17 | XMS_ITS | Encounter Summary ---
Author Organization [facility] Address [address] [place] [address] Care Team Providers Care Performance Test Engineer Name Role Phone Greg Arnold MD Primary Care Provider Unavailab le Encounter Details Date Type Department Care Team (Late st Contact Info) Description 05/15/2005 Outpatient Historical [facility] Primary Care - [address] [place] [phone] Azam Falcon MD NO ADDRESS ON FILE Social History Tobacco Use Types Packs/Day Years Used Date Smoking Tobacco: Never Assessed Sex and Gender Information Value Date Recorded Sex Assigned at Not on file Legal Sex Male 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
--- OUTSIDE RECORDS SUMMARY | 2024-11-10 17:17 | XMS_ITS | Encounter Summary ---
Author Organization [facility] Address 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 Gender Identity Not on file Sexual Orientation Not on file documented as of this encounter Last Filed Vital Signs Vital Sign Reading Time Taken Comments Blood Pressure 138/90 01/22/2006 11:45 AM CDT Pulse - - Temperature 36.4 C (97.6 F) 01/22/2006 11:45 AM CDT Respiratory Rate - - Oxygen Saturation - - Inhaled Oxygen Concentration - - Weight 98 kg (216 lb) 01/22/2006 11:45 AM CDT Height - - Body Mass Index - - documented in this encounter Plan of Treatment Not on file documented as of this encounter Visit Diagnoses Not on filedocumented in this encounter Care Teams Cleaner Signs Relationship Specialty Start Date End Date Greg Arnold MD PCP - General Family Practice 11/04/23 02/17/24 documented as of this encounter
--- OUTSIDE RECORDS SUMMARY | 2024-11-10 17:17 | XMS_ITS | Encounter Summary ---
Author Organization [facility] Address [address] [place] [address] Care Team Providers Care Brand Communications Manager Name Role Phone Greg Arnold MD Primary Care Provider Unavailab le Encounter Details Date Type Department Care Team (Late st Contact Info) Description 05/15/2005 Outpatient Historical [facility] Primary Care - [address] [place] [phone] Azam Falcon MD NO ADDRESS ON FILE Social History Tobacco Use Types Packs/Day Years Used Date Smoking Tobacco: Never Assessed Sex and Gender Information Value Date Recorded Sex Assigned at Not on file Legal Sex Male 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
--- OUTSIDE RECORDS SUMMARY | 2024-11-10 17:17 | XMS_ITS | Encounter Summary ---
Author Organization [facility] Address 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
--- OUTSIDE RECORDS SUMMARY | 2024-11-10 17:17 | XMS_ITS | Clinical Summary ---
Author Organization [facility] Address [address] [place] [address] Care Team Providers Care Automatic Line Set Up Mechanic Name Role Phone Unavailable Primary Care Provider Unavailabl e Allergies Active Allergy Reactions Criticality Noted Date Comments Hydroxyzine Other (See Comments) 03/18/2016 Marked sedation Moxifloxacin Itching Low 11/08/2011 Medications Glucosamine-Ch ondroit-Vit C-Mn Capsule Take by mouth. Ac tive RHUBARB, BULK, MISC by Misc.(Non-Drug; Combo Route) route. Active Blood-Glucose Meter (Blood Glucose Monitoring) Kit Check daily DX code E11.9 1 Each 3 Active Additional Information Patient not taking.Reported on 05/14/2023 lancets Test once daily daily DX code E11.9 100 Each 3 Active Additional Information Patient not taking.Reported on 05/14/2023 lisinopril-hyd roCHLOROthiazi de (ZESTORETIC) 20-12.5 mg tablet TAKE 2 TABLETS BY MOUTH EVERY DAY 180 Tablet 3 3 Active amLODIPine (NORVASC) 5 mg tablet TAKE 1 TABLET BY MOUTH EVERY DAY 30 Tablet 11 3 Active Additional Information Patient taking differently: 5 mg, Reported on 01/08/2024 Purelax 17 gram/dose Powder TAKE 1 SCOOP (17 GRAMS) BY MOUTH DAILY. DISSOLVE IN 8 OUNCES OF FLUID AND DRINK ENTIRE LIQUID 510 Gram 1 3 Active Additional Information Patient not taking.Reported on 05/14/2023 atorvastatin (LIPITOR) 20 mg tablet take 1 tablet by mouth every day 90 Tablet 3 4 Active ciclopirox (LOPROX) 0.77 % Cream Apply to affected area see administration instructions. 4 Active glimepiride (AMARYL) 4 mg tablet take 1 tablet by mouth every day with breakfast 30 Tablet 4 4 Active sertraline (ZOLOFT) 100 mg tablet TAKE 1/2 TABLET BY MOUTH DAILY FOR 5 DAYS, THEN TAKE 1 FULL TABLET BY MOUTH EVERY DAY 90 Tablet 4 Active metFORMIN (GLUCOPHAGE XR) 500 mg Extended Release 24 hour tabletIndicati ons:Type 2 diabetes mellitus without complication, without long-term current use of insulin (CMS/HCC) Take 2 Tablets (1,000 mg) by mouth 2 times daily with meals. 400 Tablet 4 Active tamsulosin (FLOMAX) 0.4 mg capsule Take 2 Capsules (0.8 mg) by mouth daily. 180 Capsule 4 4 Active blood sugar diagnostic (Blood Glucose Test) Strip Test once daily DX code E11.9 [facility] [id number] 100 Strip 11 4 Active Active Problems Problem Noted Date Diagnosed Date Influenza vaccination declined 03/07/2023 Overview (03/08/2023): Refused for years. Agreeable 2022 Hearing loss 03/07/2023 Reactive depression (situational) 11/08/2022 Overview (03/08/2023): Following of . Remains on sertraline. May wean in the future BPH (benign prostatic hyperplasia) 07/10/2022 Pneumococcal vaccine refused 06/04/2021 Obesity (BMI 30.0-34.9) 11/29/2020 Type 2 diabetes mellitus wit hout complication, without long-term current use of insulin 08/16/2020 Onychomycosis 06/17/2016 Essential hypertension, benign 10/10/2004 Chronic rhinitis 10/10/2004 Family history of ischemic heart disease 005 Resolved Problems Problem Noted Date Diagnosed Date Resolved Date Type 2 diabetes mellitus wit h hyperglycemia, without long-term current use of insulin 07/24/2022 11/07/2022 DM (diabetes mellitus), type 2 08/16/2020 11/29/2020 Condyloma acuminata 09/21/2008 01/18/20 11 Overview (09/30/2008): surgery Unspecified hemorrhoids with other complication 10/02/2007 01/17/2011 Unspecified nongonococcal urethritis (KYLAH) 09/11/2007 03/02/2009 Abdominal pain, right lower quadrant 07/23/2007 09/19/2008 Contusion of face, scalp, an d neck except eye(s) 07/06/2007 09/19/2008 Contusion of elbow 07/06/2007 9 Contact dermatitis and other eczema, due to unspecified cause 04/16/2007 09/19/2008 Other abnormal glucose 04/16/200711/29 Lesion of plantar nerve 04/16/200706/2008 Genital herpes, unspecified 01/07/2007 01/17/2011 Special screening for malign ant neoplasm of prostate 11/07/2006 01/17/2011 Other specified viral warts 11/07/2006 01/17/2011 Esophageal reflux 01/22/2006 05/03/2022 Sprain of unspecified site of back 08/05/2005 03/02/2009 Abdominal pain, generalized 06/10/2005 09/19/2008 Abdominal pain, other specified site 06/07/2005 09/19/2008 Urgency of urination 05/15/2005 009 Dermatophytosis of groin and perianal area 05/15/2005 01/17/2011 Routine general medical exam ination at a health care facility 10/11/2004 03/02/2009 Other malaise and fatigue 10/11/2004 Obesity, unspecified 10/11/2004 021 Encounters Date Type Department Care Team Description 10/20/2024 Patient Outreach [facility] Primary Care - [address] [place] [address] Greg Arnold MD Primary Care Outreach 10/19/2024 External Device Data STL ABSTRACTION Provider, Abstract from Last 3 Months Immunizations Immunization Administration Dates Next Due (BREANNE) COVID-19 VACCINE - EMERGENCY USE AUTHORIZATION, AD26,COV2S(PF) 0.5 ML IM SUSP 02/23/2021 INFLUENZA VACCINE HIGH DOSE QUADRIVALENT 65 YR U P PF IM 03/07/2023 Family History Medical History Relation Name Comments Colon Cancer Neg Hx Social History Tobacco Use Types Packs/Day Years Used Date Smoking Tobacco: Never Smokeless Tobacco: Never Tobacco Cessation:Counseling Given: No Alcohol Use Standard Drinks/Week Comments Not Currently 0 (1 standard drink = 0.6 oz pur e alcohol) rare Social Connections Answer Date Recorded In a typical week, how many times do you talk on the telephone with family, friends, or neighbors? More than three times a week 09/27/2020 How often do you get togethe r with friends or relatives? More than three times a week 09/27/2020 Attends Christian Services Not on file 09/27 Do you belong to any clubs o r organizations such as yazidism groups, unions, fraternal or athletic groups, or school groups? No 09/27/2020 Attends Club or Organization Meetings Not on eduardo e 09/27/2020 Marital Status Not on file 09/27/2020 Financial Resource Strain Answer Date R ecorded How hard is it for you to pa y for the very basics like food, housing, medical care, and heating? Not hard at all 05/03/2022 Food Insecurity Answer Date Recorded In the past 12 months, have you worried that your food would run out before you had money to buy more? Never true 05/03/2022 In the past 12 months, did y ou run out of food and didn't have money to buy more? Never true 05/03/2022 Transportation Needs Answer Date Record ed In the past 12 months, has l ack of transportation kept you from medical appointments or from getting medications? No 05/03/2022 Lack of Transportation (Non-Medical) Not on file 05/03/2022 Feeling Safe Answer Date Recorded Are you in a relationship wi th someone who hurts you emotionally and/or physically? 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 Gender Identity Not on file Sexual Orientation Not on file Last Filed Vital Signs Vital Sign Reading Time Taken Comments Blood Pressure 153/6 02/03/2024 11:19 AM CDT Pulse 61 02/03/2024 11:19 AM CDT Temperature 36.1 C (97 F) 02/03/2024 10:59 AM CDT Respiratory Rate 18 02/03/2024 11:19 AM CDT Oxygen Saturation 99% 02/03/2024 11:19 AM CDT Inhaled Oxygen Concentration - - Weight 104.3 kg (230 lb) 01/08/2024 11:57 AM CDT Height 172.7 cm (5' 8) 01/08/2024 11:57 AM CDT Body Mass Index 34.97 01/08/2024 11:57 AM CDT Plan of Treatment Health Maintenance Due Date Last Done Comments DTAP/TDAP/TD VACCINES (1 - Tdap) 1971 PNEUMOCOCCAL VACCINE 50+ YEA RS (1 of 2 - PCV) 1971 FIT-DNA Q 3 years 1997 FIT/FOBT Q 1 year 1997 Flex Sig/CT Colonography Q 5 years 1997 ZOSTER VACCINE (1 of 2) 2002 DIABETES MICROALBUMIN ANNUAL SCREEN 06/04/2022 06/04/2021 DIABETES ANNUAL RETINAL EXAM 09/17/2023, 09/16/2022, 09/16/2022, Additional history exists INFLUENZA VACCINE (#1) 2024 3, 03/07/2023, 03/07/2023, Additional history exists COVID-19 Vaccine (2 - 2023-2 5 season) 2024 02/23/2021 DIABETES ANNUAL FOOT EXAM 03/07/2024 03/07/2023, 12/2022 LDL CHOLESTEROL ANNUAL 03/07/2024 3, 11/07/2022, 07/10/2022, Additional history exists DIABETES HBA1C Q 6 MONTHS 08/24/20242023, 03/07/2023, 11/07/2022, Additional history exists COLORECTAL SCREENING 02/02/2027 02/03/2024, 02/03/2024, 12/05/2022, Additional history exists Colorectal Cancer Screening 02/02/2027 RSV VACCINE (60+ or ) (1 - 1-dose 75+ series) 2027 Medical Devices Implanted Type Area Marble Cleaner Device Identifier Shelf Expiration Date Model / Serial / Lot Clip Endo Resolution 360 235cm [id number] - [id number] Implanted:Qty: 1 on 02/03/2024 by Maksim Garcia MD at [facility] Clip N/A: [employer] [id number] 09/19/2026 [id number] / / [id number] Procedures Procedure Name Priority Date/Time Associated Diagnosis Comments COLONOSCOPY REPORT 02/03/2024 11 :04 AM CDT LIPID PANEL Routine 03/07/2023 11:19 AM CDT Type 2 diabetes mellitus without complication, without long-term current use of insulin ([facility]/HCC) HEMOGLOBIN A1C Routine 03/07/2023 11:19 AM CDT Type 2 diabetes mellitus without complication, without long-term current use of insulin ([facility]) MICROALBUMIN/CREATIN INE RATIO, RANDOM UR Routine 06/04/2021 11:44 AM PARTS TECHNICIAN DIABETES EYE EXAM Routine 01/23/2021 from Last 3 Months or Most Recently Relevant to Health Maintenance Results * COLONOSCOPY REPORT (02/03/2024 11:04 AM CDT) Narrative Procedure Note Maksim Garcia MD - 02/03/2024 11:04 AM CDT [facility] Endoscopy Patient Name: Charles Purcell Procedure Date: 02/03/2024 Date of : 1950 Attending MD: Maksim Garcia MD, Procedure: Colonoscopy Indications: Surveillance: Personal history of adenomatous polyps, inadequate prep on last colonoscopy (1 year ago) Providers: Maksim Garcia MD Referring MD: Greg Arnold Medicines: Monitored Anesthesia Care Complications: No immediate complications. Procedure: Informed consent was obtained for the procedure, including moderate sedation after risks were discussed. Based on the pre-procedure assessment, including review of the patient's medical history, medications, allergies, and review of systems, the patient was deemed to be an appropriate candidate for sedation. A timeout was performed. Continuous ECG monitoring, pulse oximetry, blood pressure monitoring, and direct observation were performed. The was introduced through the anus and advanced to the cecum, identified by appendiceal orifice and ileocecal valve. The colonoscopy was performed without difficulty. The patient tolerated the procedure well. The quality of the bowel preparation was good. The ileocecal valve, appendiceal orifice, and rectum were photographed. Estimated Blood Loss: Estimated blood loss was minimal. Findings: The perianal and digital rectal examinations were normal. Multiple diverticula were found in the sigmoid colon, descending colon and ascending colon. A 15 mm polyp was found in the cecum. The polyp was flat. The polyp was removed with a cold snare. Resection and retrieval were complete. A 6 mm polyp was found in the transverse colon. The polyp was sessile. The polyp was removed with a cold snare. Resection and retrieval were complete. A 2 mm polyp was found in the recto-sigmoid colon. The polyp was sessile. The polyp was removed with a jumbo cold forceps. Resection and retrieval were complete. Internal hemorrhoids were found during retroflexion. The hemorrhoids were small. Impression: - Diverticulosis in the sigmoid colon, in the descending colon and in the ascending colon. - One 15 mm polyp in the cecum, removed with a cold snare. Resected and retrieved. - One 6 mm polyp in the transverse colon, removed with a cold snare. Resected and retrieved. - One 2 mm polyp at the recto-sigmoid colon, removed with a jumbo cold forceps. Resected and retrieved. - Internal hemorrhoids. Recommendation: - Await pathology results. - Repeat colonoscopy in 3 years for surveillance. Maksim Garcia MD 02/03/2024 11:02:05 AM This report has been signed electronically. Number of Addenda: [address]; [place] [address] us Maksim Garcia MD GI PROCEDURE ORDERABL ES Final Result * (ABNORMAL) HEMOGLOBIN A1C (03/07/2023 11:19 AM CDT) HEMOGLOBIN A1C 6.8(H) <5.7 % of total Hgb [facility] Comment: For someone without known diabetes, a hemoglobin A1c value of 6.5% or greater indicates that they may have diabetes and this should be confirmed with a follow-up test. For someone with known diabetes, a value <7% indicates that their diabetes is well controlled and a value greater than or equal to 7% indicates suboptimal control. A1c targets should be individualized based on duration of diabetes, age, comorbid conditions, and other considerations. Currently, no consensus exists regarding use of hemoglobin A1c for diagnosis of diabetes for children. ESTIMATED AVERAGE GLUCOSE (MG/DL) 148 mg/dL [facility] ESTIMATED AVERAGE GLUCOSE (MMOL/L) 8.2 mmol/L [facility] Comment: FASTING:YES FASTING: YES Test Performed at: [place] [address] [place] [address] AnaDonny Haque Blood 03/07/2023 11:1 9 AM CDT 03/07/2023 11:19 AM CDT us Azam Falcon MD CHEMISTRY ORDERABLES Final Re sult [facility] [phone] [facility] [address] [place] [address] * LIPID PANEL (03/07/2023 11:19 AM CDT) CHOLESTEROL 131 <200 mg/dL [facility] HDL 58 > OR = 40 mg/dL [facility] TRIGLYCERIDE 126 <150 mg/dL [facility] LDL CALCULATED 52 mg/dL (calc) [facility] Comment: Reference range: <100 Desirable range <100 mg/dL for primary prevention; <70 mg/dL for patients with CHD or diabetic patients with > or = 2 CHD risk factors. LDL-C is now calculated using the Ceasar calculation, which is a validated novel method providing better accuracy than the Friedewald equation in the estimation of LDL-C. Godwin SS et al. TATUM. 2013;310(19): 3300-0932 (http://education.ParkTAG Social Parking/faq/DHU539) CHOL/HDL RATIO 2.3 <5.0 (calc) [facility] TOTAL NON-HDL CHOL(LDL+VLDL) 73 <130 mg/dL (calc) [facility] Comment: For patients with diabetes plus 1 major ASCVD risk factor, treating to a non-HDL-C goal of <100 mg/dL (LDL-C of <70 mg/dL) is considered a therapeutic option. FASTING:YES FASTING: YES Test Performed at: [place] [address] [place] [address] Cuco Barragan Vo Blood 03/07/2023 11:1 9 AM CDT 03/07/2023 11:19 AM CDT Result [facility] Azam Falcon MD CHEMISTRY ORDERABLES Final Re sult [facility] [phone] [place] [address] [place] [address] * MICROALBUMIN/CREATININE RATIO, RANDOM UR (06/04/2021 11:44 AM PARTS TECHNICIAN) Creatinine, Urine 62 20 - 320 mg/dL [facility] MICROALBUMIN, URINE 1.0 See Note: mg/dL [facility] Comment: Reference Range: Reference Range Not established MICROALBUMIN/CREAT RATIO, UR 16 <30 mcg/mg creat [facility] Comment: The ADA defines abnormalities in albumin excretion as follows: Albuminuria Category Result (mcg/mg creatinine) Normal to Mildly increased <30 Moderately increased 30-299 Severely increased > OR = 300 The ADA recommends that at least two of three specimens collected within a 3-6 month period be abnormal before considering a patient to be within a diagnostic category. Test Performed at: [facility] [address] [place] [address] Maksim Savage D.O., MPH 06/04/2021 11:4 4 AM PARTS TECHNICIAN 06/04/2021 11:45 AM PARTS TECHNICIAN Azam Falcon MD URINE ORDERABLES Final Result [facility] [address] [place] [address] * DIABETES EYE EXAM (01/23/2021) us Abstract Provider HEALTH MAINTENANCE Edited Resu lt - Final [facility]IC[facility] ADWOA LIZARRAGA# [id number] [address] [place] [address] from Last 3 Months or Most Recently Relevant to Health Maintenance Insurance MEDICARE PART A AND B [employer] Advance Directives For more information, please contact: [phone] * Full Code (Latest Code Status on File) Date Activated Date Inactivated Comments 02/03/2024 9:34 AM 02/03/2024 1:43 PM * Full Code Date Activated Date Inactivated Comments 12/05/2022 11:21 AM 12/05/2022 3:25 PM * Full Code Date Activated Date Inactivated Comments 11/03/2018 8:20 AM 11/03/2018 11:58 AM
--- OUTSIDE RECORDS SUMMARY | 2024-11-10 17:17 | XMS_ITS | Encounter Summary ---
Author Organization [facility] Address 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
--- OUTSIDE RECORDS SUMMARY | 2024-11-10 17:17 | XMS_ITS | Encounter Summary ---
Author Organization [facility] Address 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
--- OUTSIDE RECORDS SUMMARY | 2024-11-10 17:18 | XMS_ITS | Encounter Summary ---
Author Organization [facility] Address 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
--- OUTSIDE RECORDS SUMMARY | 2024-11-10 17:18 | XMS_ITS | Encounter Summary ---
Author Organization [facility] Address 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 GONORRHOEAE, DNA Routine 01/07/2007 2:13 PM CDT RPR Routine 01/07/2007 2:13 PM CDT documented in this encounter Results * RPR (01/07/2007 2:13 PM CDT) RPR NON-REACTI VE NON-REACT DIMPLE INTERFACE SYSTEM Comment: Lab test performed by: [facility] [place] [address] [place] [address] [address] ROSINA BALDWIN MD 01/07/2007 2:13 PM CDT Azam Falcon MD CHEMISTRY ORDERABLES Edited INTERFACE SYSTEM Refer to clinic/hospital department * CHLAMYDIA/N. GONORRHOEAE, DNA (01/07/2007 2:13 PM CDT) CHLAMYDIA TRACHOMATIS DNA NOT DETECTED NOT DETECTED INTERFACE SYSTEM NEISSERIA GONORRHOEAE DNA NOT DETECTED NOT DETECTED INTERFACE SYSTEM Comment: Lab test performed by: [facility] [address] [address] ROSINA BALDWIN 01/07/2007 2:13 PM CDT Azam Falcon MD BODY FLUIDS AND STOOLS Edited INTERFACE SYSTEM Refer to clinic/hospital department documented in this encounter Visit Diagnoses Diagnosis Genital herpes, unspecified- Primary documented in this encounter Care Teams Strawberry Grower Relationship Specialty Start Date End Date Greg Arnold MD PCP - General Family Practice 11/04/23 02/17/24 documented as of this encounter
--- OUTSIDE RECORDS SUMMARY | 2024-11-10 17:18 | XMS_ITS | Encounter Summary ---
Author Organization [facility] Address 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 PCP: pc. [facility] PHONE NUMBER: [phone] WHO CALLED: Patient called. PHARMACY NUMBER: [phone] SECTION 1: REQUESTED ACTION peisgm 12/23/06 at 10:25 am: MEDICATION REQUEST: says that you rx'd gen flexeril 10 mg 1 po tid prn--not in EMR--thalia SECTION 2: REQUESTED ACTION: pruivl 12/23/06 at 02:04 pm MEDICATION REQUEST: MEDICATION REQUEST: . MEDICATIONS: FLEXERIL ORAL TABLET 10 MG, take 1 po tid prn, 30 Dispensed, status: NEW PRESCRIPTION, 12/23/2006. FINAL ACTION: pruivl 12/23/06 at 02:04 pm Spoke with patient 12/23/06 at 02:06 pm. talked to pt Called pharmacy at 12/23/06 at 02:04 pm. [email or web address]...vlp Electronically Signed by: Nurys Owen on Saturday, December 23, 2006 documented in this encounter Plan of Treatment Not on file documented as of this encounter Visit Diagnoses Not on filedocumented in this encounter Care Teams Medical Consultant Relationship Specialty Start Date End Date Greg Arnold MD PCP - General Family Practice 11/04/23 02/17/24 documented as of this encounter
--- OUTSIDE RECORDS SUMMARY | 2024-11-10 17:18 | XMS_ITS | Encounter Summary ---
Author Organization [facility] Address [address] [place] [address] Care Team Providers Care Ethologist Name Role Phone Greg Arnold MD Primary Care Provider Unavailab le Encounter Details Date Type Department Care Team (Late st Contact Info) Description 08/01/[address] 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
--- OUTSIDE RECORDS SUMMARY | 2024-11-10 17:18 | XMS_ITS | Encounter Summary ---
Author Organization [facility] Address [address] [place] [address] Care Team Providers Care Distillation Operator Name Role Phone Greg Aronld MD Primary Care Provider Unavailab le Encounter Details Date Type Department Care Team (Late st Contact Info) Description 07/23/2007 Outpatient Historical [facility] Primary Care - [facility] [address] [place] [address] Estella Manning MD [address] [place] [address] Social History Tobacco Use Types Packs/Day Years Used Date Smoking Tobacco: Never Assessed Sex and Gender Information Value Date Recorded Sex Assigned at Not on file Legal Sex 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
--- OUTSIDE RECORDS SUMMARY | 2024-11-10 17:18 | XMS_ITS | Encounter Summary ---
Author Organization [facility] Address [address] [place] [address] Care Team Providers Care Weight Loss Sales Consultant Name Role Phone Greg Arnold MD Primary Care Provider Unavailab le Encounter Details Date Type Department Care Team (Latest Contact Info) Description 04/16/2007 Outpatient Historical [facility] Primary Care - [address] [place] [address] Azam Falcon MD NO ADDRESS ON FILE Other Abnormal Glucose (Primary Dx) Social History Tobacco Use Types Packs/Day Years Used Date Smoking Tobacco: Never Assessed Sex and Gender Information Value Date Recorded Sex Assigned at Not on file Legal Sex Male 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 Gender Identity Not on file Sexual Orientation Not on file documented as of this encounter Plan of Treatment Not on file documented as of this encounter Procedures Procedure Name Priority Date/Time Associated Diagnosis Comments HEMOGLOBIN A1C Routine 04/16/2007 5:24 PM CRANKSHAFT BALANCER GLUCOSE LEVEL Routine 04/16/2007 5:24 PM CRANKSHAFT BALANCER documented in this encounter Results * HEMOGLOBIN A1C (04/16/2007 5:24 PM CRANKSHAFT BALANCER) HEMOGLOBIN A1C 6.1 4.1 - 6.1 % of Hgb INTERFACE SYSTEM GLUCOSE, MEAN BLOOD 140 mg/dL INTERFACE SYSTEM 04/16/2007 5:24 PM CRANKSHAFT BALANCER us Azam Falcon MD CHEMISTRY ORDERABLES Edited INTERFACE SYSTEM Refer to clinic/hospital department * GLUCOSE LEVEL (04/16/2007 5:24 PM CRANKSHAFT BALANCER) GLUCOSE 86 65 - 99 mg/dL INTERFACE SYSTEM 04/16/2007 5:24 PM CRANKSHAFT BALANCER us Azam Falcon MD CHEMISTRY ORDERABLES Edited INTERFACE SYSTEM Refer to clinic/hospital department documented in this encounter Visit Diagnoses Diagnosis Other abnormal glucose- Primary documented in this encounter Care Teams Weight Loss Sales Consultant Relationship Specialty Start Date End Date Greg Arnold MD PCP - General Family Practice 11/04/23 02/17/24 documented as of this encounter
--- OUTSIDE RECORDS SUMMARY | 2024-11-10 17:18 | XMS_ITS | Encounter Summary ---
Author Organization [facility] Address 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
--- OUTSIDE RECORDS SUMMARY | 2024-11-10 17:18 | XMS_ITS | Encounter Summary ---
Author Organization [facility] Address [address] [place] [address] Care Team Providers Care Muffler Mechanic Name Role Phone Greg Arnold MD Primary Care Provider Unavailab le Encounter Details Date Type Department Care Team (Late st Contact Info) Description 12/04/2001 Outpatient Historical [facility] Primary Care - [address] [address] Azam Falcon MD NO ADDRESS ON FILE Social History Tobacco Use Types Packs/Day Years Used Date Smoking Tobacco: Never Assessed Sex and Gender Information Value Date Recorded Sex Assigned at Not on file Legal Sex Male 5:12 AM ADMITTANCE ATTENDANT Gender Identity Not on file Sexual Orientation Not on file documented as of this encounter Plan of Treatment Not on file documented as of this encounter Visit Diagnoses Not on filedocumented in this encounter Care Teams Muffler Mechanic Relationship Specialty Start Date End Date Greg Arnold MD PCP - General Family Practice 11/04/23 02/17/24 documented as of this encounter
--- OUTSIDE RECORDS SUMMARY | 2024-11-10 17:18 | XMS_ITS | Encounter Summary ---
Author Organization [facility] Address 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
--- OUTSIDE RECORDS SUMMARY | 2024-11-10 17:18 | XMS_ITS | Encounter Summary ---
Author Organization [facility] Address [address] [place] [address] Care Team Providers Care Varnish Filterer Name Role Phone Greg Arnold MD Primary Care Provider Unavailab le Encounter Details Date Type Department Care Team (Late st Contact Info) Description 02/24/[address] 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
--- OUTSIDE RECORDS SUMMARY | 2024-11-10 17:18 | XMS_ITS | Encounter Summary ---
Author Organization [facility] Address [address] [place] [address] Care Team Providers Care Center Line Cutter Operator Name Role Phone Greg Arnold MD Primary Care Provider Unavailab le Encounter Details Date Type Department Care Team (Late st Contact Info) Description 09/11/2007 Outpatient Historical [facility] Primary Care - [address] [address] Azam Falcon MD NO ADDRESS ON FILE Social History Tobacco Use Types Packs/Day Years Used Date Smoking Tobacco: Never Assessed Sex and Gender Information Value Date Recorded Sex Assigned at Not on file Legal Sex Male 5:12 AM CABLE DISPATCHER Gender Identity Not on file Sexual Orientation Not on file documented as of this encounter Plan of Treatment Not on file documented as of this encounter Visit Diagnoses Not on filedocumented in this encounter Care Teams Center Line Cutter Operator Relationship Specialty Start Date End Date Greg Arnold MD PCP - General Family Practice 11/04/23 02/17/24 documented as of this encounter
--- OUTSIDE RECORDS SUMMARY | 2024-11-10 17:18 | XMS_ITS | Encounter Summary ---
Author Organization [facility] Address 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
--- OUTSIDE RECORDS SUMMARY | 2024-11-10 17:18 | XMS_ITS | Encounter Summary ---
Author Organization [facility] Address [address] [place] [address] Care Team Providers Care Claims Adjuster Crop Name Role Phone Greg Arnold MD Primary Care Provider Unavailab le Encounter Details Date Type Department Care Team (Late st Contact Info) Description 07/06/2007 Outpatient Historical [facility] Primary Care - [address] [address] Azam Falcon MD NO ADDRESS ON FILE Social History Tobacco Use Types Packs/Day Years Used Date Smoking Tobacco: Never Assessed Sex and Gender Information Value Date Recorded Sex Assigned at Not on file Legal Sex Male 5:12 AM DOMESTIC MAID Gender Identity Not on file Sexual Orientation Not on file documented as of this encounter Plan of Treatment Not on file documented as of this encounter Visit Diagnoses Not on filedocumented in this encounter Care Teams Claims Adjuster Crop Relationship Specialty Start Date End Date Greg Arnold MD PCP - General Family Practice 11/04/23 02/17/24 documented as of this encounter
--- OUTSIDE RECORDS SUMMARY | 2024-11-10 17:18 | XMS_ITS | Encounter Summary ---
Author Organization [facility] Address [address] [place] [address] Care Team Providers Care Field Service Technician Poultry Name Role Phone Greg Arnold MD Primary Care Provider Terence jones Encounter Details Date Type Department Care Team (Latest Contact Info) Description 09/19/2008 Outpatient Historical [facility] Sathish Pimentel MD NO ADDRESS ON FILE Viral Warts, Unspecified Social History Tobacco Use Types Packs/Day Years Used Date Smoking Tobacco: Never Alcohol Use Standard Drinks/Week Comments Yes 0 (1 standard drink = 0.6 oz pur e alcohol) rare Sex and Gender Information Value Date Recorded Sex Assigned at Not on file Legal 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 Gender Identity Not on file Sexual Orientation Not on file documented as of this encounter Plan of Treatment Not on file documented as of this encounter Procedures Procedure Name Priority Date/Time Associated Diagnosis Comments PATHOLOGY Routine 09/21/2008 1:55 PM CDT HEMOGLOBIN AND HEMATOCRIT Routine 09/19/2008 1:32 PM CDT documented in this encounter Results * PATHOLOGY (09/21/2008 1:55 PM CDT) FINAL REPORT [address] [address] Patient: CHARLES LONGO : 1950 Procedure Date: 09/21/2008 Accession Date: 09/21/2008 Case No: [id number] Ordering Dr: SATHISH PIMENTEL Case types AW, BW, FW, NW and SH are performed by [facility] [place], [place], [place] SURGICAL PATHOLOGY & NON-GYNECOLOGIC CYTOPATHOLOGY REPORT DIAGNOSIS SKIN, SITE NOT SPECIFIED, EXCISION: - FRAGMENTS OF CONDYLOMA ACCUMINATUM. Specimen Description: Condyloma. Operative Procedure: Excision and fulguration condyloma. Patient Information/Histor y/Diagnosis: Condyloma. Gross: Received in a single container labeled Charles Longo, condyloma are four verrucous delgado papules ranging from 0.4 to 0.6 cm in greatest dimension. The base of each lesion is marked with blue ink. The specimen is submitted entirely in cassette A1. KLA/[place] 09.22.2008 05:40 am Microscopic: The slide is labeled [id number] and Charles Longo. 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 NATTY/TERESSA 09.22.2008 05:23 pm Staging Form: No. ELECTRONIC SIGNATURE FOR JOSESITO BLAND M.D.- 09/23/08 07:07 am INTERFACE SYSTEM 09/21/2008 1:55 PM CDT us Sathish Pimentel MD PATHOLOGY/CYTOLOGY ORDERABL ES Final Result Performing Organization Address [facility] Co de Phone Number INTERFACE SYSTEM Refer to clinic/hospital department * HEMOGLOBIN AND HEMATOCRIT (09/19/2008 1:32 PM CDT) HEMATOCRIT 42.5 40.0 - 48.0 % [facility] HEMOGLOBIN 13.8 13.6 - 16.5 g/dL [facility] Blood specimen (specimen) 09/19/2008 1:32 PM CDT 09/19/2008 3:00 PM CDT us Sathish Pimentel MD HEMATOLOGY ORDERABLES Final Result Performing Organization Address [facility] de Phone Number INTERFACE SYSTEM Refer to clinic/hospital department [facility] CLIA# [id number] [place] [address] documented in this encounter Visit Diagnoses Diagnosis Viral warts, unspecified documented in this encounter Care Teams Field Service Technician Poultry Relationship Specialty Start Date End Date Greg Arnold MD PCP - General Family Practice 11/04/23 02/17/24 documented as of this encounter
--- OUTSIDE RECORDS SUMMARY | 2024-11-10 17:18 | XMS_ITS | Encounter Summary ---
Author Organization [facility] Address 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
--- OUTSIDE RECORDS SUMMARY | 2024-11-10 17:18 | XMS_ITS | Encounter Summary ---
Author Organization [facility] Address 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 MEDICATIONS: Medication list current. CHIEF COMPLAINT Patient complains of rash.plus warts HISTORY: HISTORY: few days of penile lesion which was sensitive. Followed unprotected sex. No dysuria or other lesions. PHYSICAL EXAMINATION: CONSTITUTIONAL: GENERAL APPEARANCE: Healthy appearing patient in no distress. GENITOURINARY: PHALLUS: SINGLE ULCERATED LESION ON SHAFT. SKIN: RASH/LESION #1 LOCATION: Lower extremity. ASSESSMENT Wart, common 078.10. ASSESSMENT/PLAN: 078.19-WART additional lesion right leg. 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 Advised treatment and additional testing. Advised of future risk of spread. MEDICATIONS: VALTREX ORAL TABLET 1 GM, 1 Two Times A Day, 20 Dispensed, status: NEW PRESCRIPTION, 01/07/2007. LAB ORDERS: Order number: [id number] Test Ordered: RPR 5100 Order number: [id number] Test Ordered: CHLAMYDIA/N. GONORRHOEAE, AMPLIFIED DNA 208 Electronically Signed by: Azam Falcon MD on Sunday, January 14, 2007 documented in this encounter Plan of Treatment Not on file documented as of this encounter Visit Diagnoses Not on filedocumented in this encounter Care Teams Cigar Packer And Picker Relationship Specialty Start Date End Date Greg Arnold MD PCP - General Family Practice 11/04/23 02/17/24 documented as of this encounter
--- OUTSIDE RECORDS SUMMARY | 2024-11-10 17:18 | XMS_ITS | Encounter Summary ---
Author Organization [facility] Address 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 Gender Identity Not on file Sexual Orientation Not on file documented as of this encounter Last Filed Vital Signs Vital Sign Reading Time Taken Comments Blood Pressure 144/88 10/02/2007 1:15 PM CDT Pulse - - Temperature 36.7 C (98.1 F) 10/02/2007 1:15 PM CDT Respiratory Rate - - Oxygen Saturation - - Inhaled Oxygen Concentration - - Weight 95.4 kg (210 lb 6 oz) 10/02/2007 1:15 PM CDT Height - - Body Mass Index - - documented in this encounter Plan of Treatment Not on file documented as of this encounter Visit Diagnoses Not on filedocumented in this encounter Care Teams Car Pusher Relationship Specialty Start Date End Date Greg Arnold MD PCP - General Family Practice 11/04/23 02/17/24 documented as of this encounter
--- OUTSIDE RECORDS SUMMARY | 2024-11-10 17:18 | XMS_ITS | Encounter Summary ---
Author Organization [facility] Address 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 GONORRHOEAE, DNA Routine 09/11/2007 9:33 PM CDT documented in this encounter Results * CHLAMYDIA/N. GONORRHOEAE, DNA (09/11/2007 9:33 PM CDT) NEISSERIA GONORRHOEAE DNA NOT DETECTED NOT DETECTED [facility] Comment: Lab test performed by: [email or web address] [address] ROSINA BALDWIN MD CHLAMYDIA TRACHOMATIS DNA NOT DETECTED NOT DETECTED [facility] Specimen of unknown material (specimen) (Urethral) 09/11/2007 9:33 PM CDT 09/11/2007 9:57 PM CDT us Azam Falcon MD BODY FLUIDS AND STOOLS Final Result [facility] [address] [place] [address] documented in this encounter Visit Diagnoses Diagnosis Unspecified nongonococcal urethritis (KYLAH) documented in this encounter Care Teams Toll Line Mechanic Relationship Specialty Start Date End Date Greg Arnold MD PCP - General Family Practice 11/04/23 02/17/24 documented as of this encounter
--- OUTSIDE RECORDS SUMMARY | 2024-11-10 17:18 | XMS_ITS | Encounter Summary ---
Author Organization [facility] Address 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
--- OUTSIDE RECORDS SUMMARY | 2024-11-10 17:18 | XMS_ITS | Encounter Summary ---
Author Organization [facility] Address 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 MEDICATIONS: Medication list current. CHIEF COMPLAINT Patient complains of. b/p and a rash HISTORY: HISTORY: Jensen is seen for follow-up of his blood pressure and skin rash. However, we got into a discussion and he wished to proceed with his annual examination at this time. 401.1-HYPERTENSION ESSENTIAL BENIGN The patient has gained weight. The patient denies chest pain, shortness of breath, dyspnea on exertion, pedal edema, or headache. No complications noted from the medication presently being used. No recent laboratory work done. ROS: GENERAL: Normal activity and energy level, no change in appetite. No major weight gain or loss. No malaise, chills, fever, diaphoresis. ENDOCRINE: No heat or cold intolerance, no excessive thirst. CARDIAC: No chest pain, palpitations, orthopnea, dyspnea on exertion, or paroxysmal nocturnal dyspnea. RESPIRATORY: No dyspnea, cough, hemoptysis or wheezing. SKIN/BREAST/CHEST: . He has scattered lesions that are warty in appearance on his trunk, lower extremities, and a small lesion in the right axilla. GI: No abdominal pain, nausea, vomiting, diarrhea, constipation, melena, or hematochezia. NEUROLOGIC: No weakness, dizziness, loss of consciousness, transient ischemic symptoms, or seizures. MUSCULOSKELETAL: No muscle or joint pain, weakness, swelling or inflammation. No restriction of motion, no atrophy or backache. SOCIAL HISTORY: He has significant work stresses but an ongoing situation as his job is demanding and stressful. TOBACCO USE: Has no significant smoking history. ALCOHOL: Does not give any significant history of alcohol usage. EXERCISES: The patient is not exercising regularly. PHYSICAL EXAMINATION: CONSTITUTIONAL: GENERAL APPEARANCE: Healthy appearing patient in no distress. EARS, NOSE, MOUTH AND THROAT: EARS: Tympanic membranes shiny without retraction. Canals unremarkable. Hearing grossly normal. NOSE (AND SINUS): No abnormality of the nose or sinuses is noted. ORAL: Inspection of gums, lips, palate, and teeth normal. No scars, lesions, or masses. Oral mucosaunremarkable with non-inflamed posterior pharynx. NECK/THYROID: Trachea midline. No thyroid enlargement, tenderness, or mass. No supraclavicular or cervical adenopathy. RESPIRATORY: Clear to auscultation and percussion. Normal respiratory effort. CARDIOVASCULAR: CARDIAC: Regular rhythm. No murmurs, rubs, or gallops. ARTERIAL: No aortic bruits. EDEMA/VARICOSITIES OF EXTREMITIES: No edema or varicosities. GASTROINTESTINAL: ABDOMEN: Soft, non-tender, without masses. Bowel sounds active. LIVER/SPLEEN/KIDNEY: No hepatosplenomegaly, tenderness or nodularity. Kidneys not palpable. RECTAL: Rectal exam reveals no masses or hemorrhoids, sphincter tone is normal. mild external irritation GENITOURINARY: PROSTATE: Symmetrical and smooth with no nodularity or tenderness. MUSCULOSKELETAL EXAM: EXTREMITIES: BILATERAL LOWER EXTREMITIES: No misalignment or tenderness. Full range of motion. Normal stability,strength and tone. SKIN: RASH/LESION #1 LOCATION: Upper extremity. Left lower extremity, right lower extremity. ASSESSMENT Wart, common 078.10. NEUROLOGIC: DEEP TENDON REFLEXES: Deep tendon reflexes 2+/4 and symmetrical. OFFICE PROCEDURES: SKIN CONSENTS/PROCEDURES: The lesion was treated with liquid nitrogen resulting in freezing of the entire lesion and 1-2 mm of surrounding skin. ASSESSMENT/PLAN: 401.1-HYPERTENSION ESSENTIAL BENIGN Well controlled. LAB ORDERS: Order number: [id number] Test Ordered: BASIC METABOLIC PANEL & GFR 1607 V70.0-ROUTINE GENERAL MEDICAL EXAMINATION He needs weight reduction and a greater level of exercise. This was discussed. Routine screening was discussed. He is up-to-date with a colonoscopy 3 years ago with negative findings and with his family history a 10 year follow-up would be recommended at this time. LAB ORDERS: Order number: [id number] Test Ordered: LIPID PANEL 1078 V76.44-SCREEN FOR CA OF PROSTATE Check PSA. LAB ORDERS: Order number: [id number] Test Ordered: PSA, TOTAL 1002 078.19-WART Lesions were treated with liquid nitrogen on the extremities and trunk. LAB ORDERS: Order number: [id number] Test Ordered: DESTRUCTION BENIGN LESIONS TO 14 [id number] Electronically Signed by: Azam Falcon MD on Sunday, November 12, 2006 documented in this encounter Plan of Treatment Not on file documented as of this encounter Visit Diagnoses Not on filedocumented in this encounter Care Teams Casting Sorter Relationship Specialty Start Date End Date Greg Arnold MD PCP - General Family Practice 11/04/23 02/17/24 documented as of this encounter
--- OUTSIDE RECORDS SUMMARY | 2024-11-10 17:18 | XMS_ITS | Encounter Summary ---
Author Organization [facility] Address 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
--- OUTSIDE RECORDS SUMMARY | 2024-11-10 17:18 | XMS_ITS | Encounter Summary ---
Author Organization [facility] Address [address] [place] [address] Care Team Providers Care Billiard Table Mechanic Name Role Phone Greg Arnold MD Primary Care Provider Unavailab le Encounter Details Date Type Department Care Team (Late st Contact Info) Description 09/23/2007 Orders Only [facility] Primary Care - [facility] [address] [place] [address] Estella Manning MD [address] [place] [address] [address] [place] [address] Social History Tobacco Use Types Packs/Day Years Used Date Smoking Tobacco: Never Assessed Sex and Gender Information Value Date Recorded Sex Assigned at Not on file 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 LAST VISIT: 09/11/07 PCP: maria eugenia. ALTERNATIVE PHONE NUMBER: [phone] WHO CALLED: Patient called. CURRENT ALLERGY LIST: NO KNOWN ALLERGIES PHARMACY NUMBER: [phone] PROBLEMS: PINK EYE: Patient complains of pink eye. both eyes, watery, itchy, red SECTION 1: REQUESTED ACTION nia 09/23/07 at 02:56 pm: MEDICATION REQUEST: pt requesting rx................MEAGAN DOCTOR`S RESPONSE: jeannette 09/23/07 at 03:30 pm any yellow drainage? Eyes mattered in AM? any runny nose? .SHAWNA Pt says no drainage or yellow drainage, but sinus are running....................Fany MEDICATIONS: Call in to Pharmacy [facility] 0.05 %, one drop BID, 15 Dispensed, status: NEW PRESCRIPTION, 09/23/2007. also use OTC claritin or benadryl, visit if no better FINAL ACTION: nia 09/23/07 at 03:53 pm Spoke with patient 09/23/07 at 03:53 pm. Called pharmacy at 09/23/07 at 03:53 pm. MEAGAN Electronically Signed by: Meggan Cowan on Sunday, September 23, 2007 documented in this encounter Plan of Treatment Not on file documented as of this encounter Visit Diagnoses Not on filedocumented in this encounter Care Teams Billiard Table Mechanic Relationship Specialty Start Date End Date Greg Arnold MD PCP - General Family Practice 11/04/23 02/17/24 documented as of this encounter
--- OUTSIDE RECORDS SUMMARY | 2024-11-10 17:18 | XMS_ITS | Encounter Summary ---
Author Organization [facility] Address 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
--- OUTSIDE RECORDS SUMMARY | 2024-11-10 17:18 | XMS_ITS | Encounter Summary ---
Author Organization [facility] Address 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
--- OUTSIDE RECORDS SUMMARY | 2024-11-10 17:18 | XMS_ITS | Encounter Summary ---
Author Organization [facility] Address 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
--- OUTSIDE RECORDS SUMMARY | 2024-11-10 17:18 | XMS_ITS | Encounter Summary ---
Author Organization [facility] Address [address] [place] [address] Care Team Providers Care Grain Trader Name Role Phone Greg Arnold MD Primary Care Provider Unavailab le Encounter Details Date Type Department Care Team (Latest Contact Info) Description 11/07/2006 Outpatient Historical [facility] Primary Care - [address] [address] Azam Falcon MD NO ADDRESS ON FILE Special Screening for Malignant Neoplasm of Prostate (Primary Dx) Social History Tobacco Use Types Packs/Day Years Used Date Smoking Tobacco: Never Assessed Sex and Gender Information Value Date Recorded Sex Assigned at Not on file 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
--- OUTSIDE RECORDS SUMMARY | 2024-11-10 17:18 | XMS_ITS | Encounter Summary ---
Author Organization [employer] [facility] Address 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 Gender Identity Not on file Sexual Orientation Not on file documented as of this encounter Plan of Treatment Not on file documented as of this encounter Procedures Procedure Name Priority Date/Time Associated Diagnosis Comments ECHO STRESS TEST EXERCISE WO ECG Routine 09/20/2008 2:08 PM CDT documented in this encounter Results * ECHOCARDIOGRAM STRESS TEST (09/20/2008 2:08 PM CDT) Narrative INTERFACE SYSTEM - 09/20/2008 2:08 PM CDT [address] [address] [place] [address] [email or web address] Patient: Charles Purcell MRN: Study ID: ADULT STRESS ECH Gender: M : 1950 Age: 58 years Race: 1 Room: Bed: Height: Study Date: September 20, 2008 Patient status: Outpatient Weight: Access. #: [id number] POC: Ordering: Shasha Attending MD: Shasha Admitting MD: Shasha Study Conclusions: SUMMARY - Stress results : Duration of exercise was 7 min. Functional capacity was slightly decreased (20% to 30%). Target heart rate was achieved. There was resting hypertension with a hypertensive blood pressure response to stress. There was no chest pain during stress. The stress ECG was normal. - Baseline : Estimated left ventricular ejection fraction was in the range of 55 % to 65 %. - Echo image interpretation : There was no echocardiographic evidence for stress-induced ischemia. IMPRESSIONS - Normal stress echo study after maximal exercise. LVH. History and indications - Detection of coronary artery disease. - Pre-operative risk assessment. HISTORY - Coronary artery disease risk factors: hypertension. REST ECG - Normal sinus rhythm, late transition, inferolateral NSSTT. Treadmill exercise testing was performed, using the Gerson protocol. Stress and rest echocardiographic evaluation with 2D imaging was performed from multiple acoustic windows for evaluation of ventricular function. Stress results Gerson protocol Baseline HR bpm: 77 SBP mmH DBP mmH Symptoms: -- ST change: -- Rhythm/conduct: -- Peak HR bpm: 152 SBP mmH DBP mmH Symptoms: dyspnea, fatigue ST change: none Rhythm/conduct: NSR, no ectopy STRESS RESULTS - Duration of exercise was 7 min. - Maximal work rate was 10 METs. - Functional capacity was slightly decreased (20% to 30%). - Maximal heart rate during stress was 152 bpm ( 93 % of maximal predicted heart rate). - The heart rate response to stress was normal. - There was resting hypertension with a hypertensive blood pressure response to stress. - There was no chest pain during stress. - The stress test was terminated due to achievement of target heart rate, dyspnea, and fatigue. - There were no stress arrhythmias or conduction abnormalities. - The stress ECG was normal. Imaging data STRESS 2D ECHOCARDIOGRAPHIC RESULTS Baseline: - There were no left ventricular regional wall motion abnormalities at baseline. - Overall left ventricular systolic function was normal. Mild-moderate LVH. - Estimated left ventricular ejection fraction was in the range of 55 % to 65 %. Peak stress: - There were no left ventricular regional wall motion abnormalities at peak stress. - There was an appropriate augmentation in LV function. ECHO IMPRESSIONS - There was no echocardiographic evidence for stress-induced ischemia. Prepared and Electronically Authenticated Danielito Goss MD Confirmed September 20, 2008 14:05:46 Procedure Note Provider, Historical - 09/20/2008 [address] [place] [address] [email or web address] Patient: Charles Purcell MRN: Study ID: ADULT STRESS ECH Gender: Tavares : 1950 Age: 58 years Race: 1 Room: Bed: Height: Study Date: September 20, 2008 Patient status: Outpatient Weight: Access. #: [id number] POC: Ordering: Shasha Attending MD: Shasha Admitting MD: Shasha Study Conclusions: SUMMARY - Stress results : Duration of exercise was 7 min. Functional capacitywas slightly decreased (20% to 30%). Target heart rate was achieved. There was resting hypertension with a hypertensive blood pressure response to stress. There was no chest pain during stress. The stress ECG was normal. - Baseline : Estimated left ventricular ejection fraction was in therange of 55 % to 65 %. - Echo image interpretation : There was no echocardiographic evidencefor stress-induced ischemia. IMPRESSIONS - Normal stress echo study after maximal exercise. LVH. History and indications - Detection of coronary artery disease. - Pre-operative risk assessment. HISTORY - Coronary artery disease risk factors: hypertension. REST ECG - Normal sinus rhythm, late transition, inferolateral NSSTT. Treadmill exercise testing was performed, using the Gerson protocol.Stress and rest echocardiographic evaluation with 2D imaging was performed from multiple acoustic windows for evaluation of ventricular function. Stress results Gerson protocol Baseline HR bpm: 77 SBP mmH DBP mmH Symptoms: -- ST change: -- Rhythm/conduct: -- Peak HR bpm: 152 SBP mmH DBP mmH Symptoms: dyspnea, fatigue ST change: none Rhythm/conduct: NSR, no ectopy STRESS RESULTS - Duration of exercise was 7 min. - Maximal work rate was 10 METs. - Functional capacity was slightly decreased (20% to 30%). - Maximal heart rate during stress was 152 bpm ( 93 % of maximalpredicted heart rate). - The heart rate response to stress was normal. - There was resting hypertension with a hypertensive blood pressure response to stress. - There was no chest pain during stress. - The stress test was terminated due to achievement of target heartrate, dyspnea, and fatigue. - There were no stress arrhythmias or conduction abnormalities. - The stress ECG was normal. Imaging data STRESS 2D ECHOCARDIOGRAPHIC RESULTS Baseline: - There were no left ventricular regional wall motion abnormalities at baseline. - Overall left ventricular systolic function was normal. Mild-moderate LVH. - Estimated left ventricular ejection fraction was in the range of 55 %to 65 %. Peak stress: - There were no left ventricular regional wall motion abnormalities at peak stress. - There was an appropriate augmentation in LV function. ECHO IMPRESSIONS - There was no echocardiographic evidence for stress-induced ischemia. Prepared and Electronically Authenticated Danielito Goss MD Confirmed September 20, 2008 14:05:46 us Azam Falcon MD ORDERABLES Final Result INTERFACE SYSTEM Refer to clinic/hospital department documented in this encounter Visit Diagnoses Diagnosis Preoperative examination, unspecified documented in this encounter Care Teams Cad Librarian Relationship Specialty Start Date End Date Greg Arnold MD PCP - General Family Practice 11/04/23 02/17/24 documented as of this encounter
--- OUTSIDE RECORDS SUMMARY | 2024-11-10 17:18 | XMS_ITS | Encounter Summary ---
Author Organization [facility] Address 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
--- OUTSIDE RECORDS SUMMARY | 2024-11-10 17:18 | XMS_ITS | Encounter Summary ---
Author Organization [facility] Address 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
--- OUTSIDE RECORDS SUMMARY | 2024-11-10 17:18 | XMS_ITS | Encounter Summary ---
Author Organization [facility] Address 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 WHO TOOK THE CALL: Meggan Cowan A GENERAL INFORMATION PATIENT STATUS: Established Patient. LAST VISIT: 07/23/07 PCP: maria eugenia. ALTERNATIVE PHONE NUMBER: [phone] WHO CALLED: Patient called. CURRENT ALLERGY LIST: NO KNOWN ALLERGIES PROBLEMS: pt states that he is having a Male problem and would like to see MD today,pt states that for 3 days he has had burning when he urinates, no back pain or blood in urine, pt states that he does have a red area pls advise..........SAS SECTION 1: REQUESTED ACTION nia 09/11/07 at 10:13 am: APPOINTMENT REQUEST: Patient wants an appointment today with PCP only, no appointments available. SECTION 2: DOCTOR`S RESPONSE: conwpg 09/11/07 at 10:15 am see this afternoon FINAL ACTION: nia 09/11/07 at 10:25 am Spoke with patient 09/11/07 at 10:25 am. Booked appointment: 09/11/07 @ 3:30 pm W/ PC......................SAS Electronically Signed by: Meggan Cowan on Tuesday, September 11, 2007 * Azam Falcon MD - 11/06/2007 9:56 AM CDT TEMPERATURE: 98??f Oral WEIGHT: [id number] BLOOD PRESSURE: 130/90 Right Arm Sitting NURSE NAME: Tanya Phan Pearl ALLERGIES: No known drug allergies. MEDICATIONS: Medication list current. CHIEF COMPLAINT Patient complains of painful urination. HISTORY: HISTORY: HISTORY OF PRESENT ILLNESS: Dysuria last few days. Followed sexual contact by few days. No fever chills or rash.No local elesion ROS: GENERAL: HAS LOST WEIGHT. through diet alone. PHYSICAL EXAMINATION: CONSTITUTIONAL: GENERAL APPEARANCE: Healthy appearing patient in no distress. GENITOURINARY: SCROTUM/CONTENTS: Normal in appearance with no hydrocele, spermatocele, tenderness of cord, or testicular mass. PHALLUS: metal irritation without discharge. OFFICE PROCEDURES: URINALYSIS RESULTS WBC: WBC`s were trace. NITRITE: nitrites were negative. UROBILINOGEN urobilinogen was normal. PROTEIN: protein was negative. pH: pH was 7.5. U/A BLOOD: blood was non-hem trace. SPECIFIC GRAVITY: specific gravity was 1.005. KETONES: ketones were negative. BILIRUBIN: bilirubin was negative. GLUCOSE: glucose was negative. ASSESSMENT/PLAN: 099.40-OTHER VENEREAL DISEASES Urethritis.give rx now and perform studies. MEDICATIONS: ZITHROMAX Z-EMEKA ORAL TABLET 250 MG, 4 tabs stat, 4 Dispensed, status: NEW PRESCRIPTION, 09/11/2007. LAB ORDERS: Order number: [id number] Test Ordered: CHLAMYDIA & GC PROBE [id number] Electronically Signed by: Azam Falcon MD on August documented in this encounter Plan of Treatment Not on file documented as of this encounter Visit Diagnoses Not on filedocumented in this encounter Care Teams Manager Architecture Relationship Specialty Start Date End Date Greg Arnold MD PCP - General Family Practice 11/04/23 02/17/24 documented as of this encounter
--- OUTSIDE RECORDS SUMMARY | 2024-11-10 17:18 | XMS_ITS | Encounter Summary ---
Author Organization [facility] Address 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
--- OUTSIDE RECORDS SUMMARY | 2024-11-10 17:18 | XMS_ITS | Encounter Summary ---
Author Organization [facility] Address 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
--- OUTSIDE RECORDS SUMMARY | 2024-11-10 17:18 | XMS_ITS | Encounter Summary ---
Author Organization [facility] Address 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
--- OUTSIDE RECORDS SUMMARY | 2024-11-10 17:18 | XMS_ITS | Encounter Summary ---
Author Organization [facility] Address 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
--- OUTSIDE RECORDS SUMMARY | 2024-11-10 17:18 | XMS_ITS | Encounter Summary ---
Author Organization [facility] Address 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
--- OUTSIDE RECORDS SUMMARY | 2024-11-10 17:18 | XMS_ITS | Encounter Summary ---
Author Organization [facility] Address [address] [place] [address] Care Team Providers Care Household Coordinator Name Role Phone Greg Arnold MD Primary Care Provider Unavailab le Encounter Details Date Type Department Care Team (Late st Contact Info) Description 05/17/2004 Outpatient Historical [facility] Primary Care - [address] [place] [phone] Azam Falcon MD NO ADDRESS ON FILE Social History Tobacco Use Types Packs/Day Years Used Date Smoking Tobacco: Never Assessed Sex and Gender Information Value Date Recorded Sex Assigned at Not on file Legal Sex Male 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
--- OUTSIDE RECORDS SUMMARY | 2024-11-10 17:18 | XMS_ITS | Encounter Summary ---
Author Organization [facility] Address 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 LAST VISIT: PCP: maria eugenia. ALTERNATIVE PHONE NUMBER: [phone] WHO CALLED: Patient called. CURRENT ALLERGY LIST: NO KNOWN ALLERGIES PHARMACY NUMBER: [phone] PROBLEMS: achy all over , tried ziacam, tylenol CONGESTION: Patient complains of sinus congestion, complains of chest congestion, complains of headcongestion. COUGH:Patient complains of cough. FEVER: . hot/cold HEADACHE: Patient complains of headache. off and on SORE THROAT: Patient complains of sore throat. tickle SECTION 1: REQUESTED ACTION [facility] 08/07/07 at 11:13 am: MEDICATION REQUEST: rx----az DOCTOR`S RESPONSE: conwpg 08/07/07 at 11:50 am MEDICATIONS: Call in to Pharmacy ZITHROMAX Z-EMEKA ORAL TABLET 250 MG, use as directed, 1 Dispensed, status: NEW PRESCRIPTION, 08/07/2007. BROMETANE DX ORAL SYRUP 30-2-10 MG/5ML FLUIDOUNCES, one to two teaspoons qid, 6 Dispensed, status: NEW PRESCRIPTION, 08/07/2007. FINAL ACTION: janae 08/07/07 at 12:02 pm Spoke with patient 08/07/07 at 12:02 pm. Called pharmacy at 08/07/07 at 12:02 pm. az Electronically Signed by: Az Ma on Tuesday, August 07, 2007 documented in this encounter Plan of Treatment Not on file documented as of this encounter Visit Diagnoses Not on filedocumented in this encounter Care Teams Grain Sacker Relationship Specialty Start Date End Date Greg Arnold MD PCP - General Family Practice 11/04/23 02/17/24 documented as of this encounter
--- OUTSIDE RECORDS SUMMARY | 2024-11-10 17:18 | XMS_ITS | Encounter Summary ---
Author Organization [facility] Address [address] [place] [address] Care Team Providers Care Cook Fruit Name Role Phone Greg Arnold MD Primary Care Provider Unavailab le Encounter Details Date Type Department Care Team (Late st Contact Info) Description 01/02/2001 Outpatient Historical [facility] Primary Care - [address] [place] [phone] Azam Falcon MD NO ADDRESS ON FILE Social History Tobacco Use Types Packs/Day Years Used Date Smoking Tobacco: Never Assessed Sex and Gender Information Value Date Recorded Sex Assigned at Not on file Legal Sex Male 5:12 AM RN NURSERY Gender Identity Not on file Sexual Orientation Not on file documented as of this encounter Plan of Treatment Not on file documented as of this encounter Visit Diagnoses Not on filedocumented in this encounter Care Teams Cook Fruit Relationship Specialty Start Date End Date Greg Arnold MD PCP - General Family Practice 11/04/23 02/17/24 documented as of this encounter
--- OUTSIDE RECORDS SUMMARY | 2024-11-10 17:18 | XMS_ITS | Encounter Summary ---
Author Organization [facility] Address 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
--- OUTSIDE RECORDS SUMMARY | 2024-11-10 17:18 | XMS_ITS | Encounter Summary ---
Author Organization [facility] Address [address] [place] [address] Care Team Providers Care Data Analytics Specialist Name Role Phone Greg Arnold MD Primary Care Provider Unavailab le Encounter Details Date Type Department Care Team (Late st Contact Info) Description 07/23/2007 Outpatient Historical [facility] Primary Care - [facility] [address] [place] [address] Estella Manning MD [address] [place] [address] Social History Tobacco Use Types Packs/Day Years Used Date Smoking Tobacco: Never Assessed Sex and Gender Information Value Date Recorded Sex Assigned at Not on file Legal 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
--- OUTSIDE RECORDS SUMMARY | 2024-11-10 17:18 | XMS_ITS | Encounter Summary ---
Author Organization [facility] Address 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
--- OUTSIDE RECORDS SUMMARY | 2024-11-10 17:18 | XMS_ITS | Encounter Summary ---
Author Organization [facility] Address 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 LAST VISIT: 01-07-07 PCP: Ezekiel. ALTERNATIVE PHONE NUMBER: [phone] WHO CALLED: Patient called. CURRENT ALLERGY LIST: NO KNOWN ALLERGIES PROBLEMS: x 3 weeks toes numb. HEADACHE: Patient complains of headache. back of neck x 2 days taking bc powder. RASH: Patient complains of rash. The rash began approximately 3 weeks ago. lt side of body around waist. looks like chigger bites. SECTION 1: REQUESTED ACTION marino 04/16/07 at 09:17 am: wants appt today..............leticia DOCTOR`S RESPONSE: conwpg 04/16/07 at 09:31 am ok to see this afternoon FINAL ACTION: aramis 04/16/07 at 09:47 am Spoke with patient 04/16/07 at 09:47 am. Booked appointment: 04-16-07 3:30p...radha Electronically Signed by: Marcela Doyle on April * Azam Falcon MD - 10/15/2007 6:37 PM CDT TEMPERATURE: 96.7??f Oral BLOOD PRESSURE: 150/100 Left Arm Sitting WEIGHT: 221lbs NURSE NAME: Lilliana Taylor N ALLERGIES: No known drug allergies. TOBACCO USE Patient does not currently use tobacco. MEDICATIONS: Medication list current. CHIEF COMPLAINT Patient complains of headache, rash. toe numbness---ao HISTORY: HISTORY: 401.1-HYPERTENSION ESSENTIAL BENIGN The patient has gained weight. The patient denies chest pain, shortness of breath, dyspnea on exertion, pedal edema, or headache. No recent laboratory work done. The patient is tolerating the medication, not compliant with medication and misses doses frequently. HISTORY OF PRESENT ILLNESS: Jensen is seen acutely today. He has complaints of rash and toe numbness.He has complaints of numbness in the toes, it is primarily in the interdigital area, between toes 1and 2 bilaterally. It is worse after activities. He has not changed his shoes, he has no history oftrauma, there is no change in the appearance of this area. RASH: It is present on the left beltline and has been present for a few weeks. It has been irritated and slightly scaly. It is not responding to simple over the counter meds. SOCIAL HISTORY: Significant stress related to his son was discussed today. PHYSICAL EXAMINATION: CONSTITUTIONAL: GENERAL APPEARANCE: Healthy appearing patient in no distress. NECK/THYROID: Trachea midline. No thyroid enlargement, tenderness, or mass. No supraclavicular or cervical adenopathy. RESPIRATORY: Clear to auscultation and percussion. Normal respiratory effort. CARDIOVASCULAR: CARDIAC: Regular rhythm. No murmurs, rubs, or gallops. ARTERIAL: No aortic bruits. EDEMA/VARICOSITIES OF EXTREMITIES: No edema or varicosities. GASTROINTESTINAL: ABDOMEN: Soft, non-tender, without masses. Bowel sounds active. LIVER/SPLEEN/KIDNEY: No hepatosplenomegaly, tenderness or nodularity. Kidneys not palpable. SKIN: He has a thickened, irregularly shaped lesion along the left beltline with slight scaling present. NEUROLOGIC: DEEP TENDON REFLEXES: Deep tendon reflexes 2+/4 and symmetrical. SENSATION: Normal to touch, pinprick and vibration. ASSESSMENT/PLAN: 401.1-HYPERTENSION ESSENTIAL BENIGN He is not taking his meds faithfully and he needs to be more careful with his regimen. 692.9-ECZEMA Lesion on his flank, it should respond to topical steroid cream. MEDICATIONS: TRIAMCINOLONE ACETONIDE EXTERNAL CREAME 0.1 %, apply bid, 30 Dispensed, status: NEW PRESCRIPTION, 04/16/2007. 790.29-OTHER ABNORMAL GLUCOSE He has had a mild elevation of glucose in the past. He brought in laboratory data from an insurance examination, which showed a more elevated sugar. I do not suspect he is diabetic. 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 The nature of this was discussed with the patient. We talked about adjusting his footwear to protect the area. If he does not improve, he will see a evaluation analyst. RETURN VISIT : Patient instructed to return in 6 months. Electronically Signed by: Azam Falcon MD on Saturday, May 12, 2007 documented in this encounter Plan of Treatment Not on file documented as of this encounter Visit Diagnoses Not on filedocumented in this encounter Care Teams Procedure Analyst Relationship Specialty Start Date End Date Greg Arnold MD PCP - General Family Practice 11/04/23 02/17/24 documented as of this encounter
--- OUTSIDE RECORDS SUMMARY | 2024-11-10 17:18 | XMS_ITS | Encounter Summary ---
Author Organization [facility] Address 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 LAST VISIT: 07-23-07 PCP: Ezekiel. ALTERNATIVE PHONE NUMBER: [phone] WHO CALLED: Patient called. CURRENT ALLERGY LIST: NO KNOWN ALLERGIES PHARMACY NUMBER: [phone] PROBLEMS: rectal itching x 4days. has had problem in past and cream rx'd SECTION 1: REQUESTED ACTION edvinw 08/31/07 at 11:21 am: MEDICATION REQUEST: Patient requests a refill. MEDICATIONS: TRIAMCINOLONE ACETONIDE EXTERNAL CREAME 0.1 %, apply bid, 30 Dispensed, status: NEW PRESCRIPTION, 04/16/2007, Comment: called to [phone]/ leticia. .....leticia DOCTOR`S RESPONSE: conwpg 08/31/07 at 12:09 pm Refill now with 1 additional refill. FINAL ACTION: frankw 08/31/07 at 02:05 pm Left message on patient`s recorder or with a family member 08/31/2007 at 02:06 pm. Called pharmacy at 08/31/07 at 02:05 pm. / leticia Electronically Signed by: Leticia Calles on Friday, August 31, 2007 documented in this encounter Plan of Treatment Not on file documented as of this encounter Visit Diagnoses Not on filedocumented in this encounter Care Teams Paperboard Boxes Estimator Relationship Specialty Start Date End Date Greg Arnold MD PCP - General Family Practice 11/04/23 02/17/24 documented as of this encounter
--- OUTSIDE RECORDS SUMMARY | 2024-11-10 17:18 | XMS_ITS | Encounter Summary ---
Author Organization [facility] Address 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
--- OUTSIDE RECORDS SUMMARY | 2024-11-10 17:18 | XMS_ITS | Encounter Summary ---
Author Organization [facility] Address 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
--- OUTSIDE RECORDS SUMMARY | 2024-11-10 17:18 | XMS_ITS | Encounter Summary ---
Author Organization [facility] Address 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
--- OUTSIDE RECORDS SUMMARY | 2024-11-10 17:18 | XMS_ITS | Encounter Summary ---
Author Organization [facility] Address 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
--- OUTSIDE RECORDS SUMMARY | 2024-11-10 17:18 | XMS_ITS | Encounter Summary ---
Author Organization [facility] Address 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
--- OUTSIDE RECORDS SUMMARY | 2024-11-10 17:18 | XMS_ITS | Encounter Summary ---
Author Organization [facility] Address 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
--- OUTSIDE RECORDS SUMMARY | 2024-11-10 17:18 | XMS_ITS | Encounter Summary ---
Author Organization [facility] Address 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 LAST VISIT: 11-07-06 PCP: Ezekiel. ALTERNATIVE PHONE NUMBER: [phone] WHO CALLED: Patient called. CURRENT ALLERGY LIST: NO KNOWN ALLERGIES PHARMACY NUMBER: will get PROBLEMS: using cream on anus area rash no better. still itches. SECTION 1: REQUESTED ACTION marino 11/19/06 at 11:01 am: MEDICATION REQUEST: NEXT STEP: Patient is no better and wants to know the next step. .........rosalinda DOCTOR`S RESPONSE: tangela 11/19/06 at 12:17 pm new cream MEDICATIONS: Call in to Pharmacy [facility] RECTAL CREAME 1-2.5 % GRAMS, apply bid, 30 Dispensed, status: NEW PRESCRIPTION, 11/19/2006. FINAL ACTION: starca 11/19/06 at 12:44 pm Spoke with patient 11/19/06 at 12:44 pm. Called pharmacy at 11/19/06 at 12:44 pm. ...radha Electronically Signed by: Marcela Doyle on Sunday, November 19, 2006 documented in this encounter Plan of Treatment Not on file documented as of this encounter Visit Diagnoses Not on filedocumented in this encounter Care Teams Light Technician Relationship Specialty Start Date End Date Greg Arnold MD PCP - General Family Practice 11/04/23 02/17/24 documented as of this encounter
--- OUTSIDE RECORDS SUMMARY | 2024-11-10 17:18 | XMS_ITS | Encounter Summary ---
Author Organization [facility] Address 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
[2024-11-10 20:50] LABS: Hemoglobin A1C 7.8 % (<5.7)
[2024-11-10 21:22] LABS: Alanine Aminotransferase 27 U/L (6-50); Albumin Level 4.3 g/dL (3.5-5.1); Alkaline Phosphatase 25 U/L (38-126); Anion Gap 8 mmol/L (4-12); Aspartate Amino Transferase 45 U/L (17-59); Bilirubin,Total 0.5 mg/dL (0.2-1.3); Blood Urea Nitrogen 17 mg/dL (9-20); Calcium 9.5 mg/dL (8.4-10.2); Carbon Dioxide 29 mmol/L (22-30); Chloride 100 mmol/L (98-107); Estimated Glomerular Filt Rate > 60; Glucose 206 mg/dL (65-110); Potassium 4.2 mmol/L (3.4-5.0); Sodium 137 mmol/L (137-145); Total Protein 7.2 g/dL (6.3-8.2)
== END 2024-11-10 14:36 | disposition home or self-care (01) ==
LOC: ANHGOSHLAB 14:36
PROVIDERS: PCP Family Medicine; Visit Provider Family Medicine
DX: I10 Essential (primary) hypertension (principal); E11.9 Type 2 diabetes mellitus without complications
CPT/HCPCS: 36415; 80053; 83036

== ENCOUNTER 2025-01-26 10:16 | Outpatient (CLI) | payer MEDICARE, SELFPAY ==
--- NOTE | ~2025-01-26 | CT_ITS ---
EXAMINATION: CT soft tissue neck wo con COMPARISON: None HISTORY: Localized swelling, mass and lump, head TECHNIQUE: Axial images were obtained without IV contrast. Sagittal, coronal reconstruction images were obtained from the axial views. CT scan performed using dose optimization techniques including the following automated exposure control; adjustment of mA and/or kV; use of iterative reconstruction technique. Automatic exposure control was used to reduce radiation dose. Permanent radiation dose record is archived to PACS. FINDINGS: Visualized brain parenchyma appears unremarkable. Visualized optic globes unremarkable. There is no thickening of the prevertebral space or asymmetry of the airway. No asymmetry of the base of the tongue on the aryepiglottic folds. No asymmetry of the vocal cords No thyroid nodules. No lymphadenopathy in the anterior superior mediastinum. There are some calcified lymph nodes. No thickening of the esophagus The parapharyngeal space and the tonsillar tissue appear unremarkable. Submandibular glands are unremarkable. Parotid glands unremarkable. There is no jugulodigastric, posterior cervical or supraclavicular lymphadenopathy The lung apices appear unremarkable There are no sclerotic or lytic lesions. No significant sinusitis The soft tissues appear unremarkable with no CT correlate to the palpable finding on the right side. IMPRESSION: 1. Unremarkable exam. There is no CT correlate to the palpable finding. If symptoms persist contrast-enhanced MRI is suggested Reviewed, dictated and finalized at location A. IMPRESSION: 1. Unremarkable exam. There is no CT correlate to the palpable finding. If symp toms persist contrast-enhanced MRI is suggested
== END 2025-01-26 10:17 | disposition home or self-care (01) ==
LOC: MICIMG 10:24
PROVIDERS: PCP Nurse Practitioner Family; Visit Provider Nurse Practitioner Family
DX: R22.0 Localized swelling, mass and lump, head (principal); R22.1 Localized swelling, mass and lump, neck
CPT/HCPCS: 70490

== ENCOUNTER 2025-04-04 13:16 | Outpatient (CLI) | payer MEDICARE, SELFPAY ==
[2025-04-04 14:23] LABS: Add Urine Microscopic? YES; Appearance Urine Clear (Clear); Glucose Urine UA 1+ mg/dL (Negative); Leukocyte Esterase Ur Trace LEU/UL (Negative); Nitrate Urine Negative (Negative); Non Pathogenic Casts 0-2; Specific Grav Ur 1.022 (1.001-1.035)
--- OUTSIDE RECORDS SUMMARY | 2025-04-04 14:33 | XMS_ITS | Encounter Summary ---
Author Organization [facility] Address 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 Gender Identity Not on file Sexual Orientation Not on file documented as of this encounter Last Filed Vital Signs Vital Sign Reading Time Taken Comments Blood Pressure 148/80 08/05/2005 3:00 PM EMERGENCY OPERATOR Pulse - - Temperature 36.6 C (97.9 F) 08/05/2005 3:00 PM EMERGENCY OPERATOR Respiratory Rate - - Oxygen Saturation - - Inhaled Oxygen Concentration - - Weight 100.2 kg (221 lb) 08/05/2005 3:00 PM EMERGENCY OPERATOR Height - - Body Mass Index - - documented in this encounter Plan of Treatment Not on file documented as of this encounter Visit Diagnoses Not on filedocumented in this encounter Care Teams Swimming Pool Cleaner Relationship Specialty Start Date End Date Greg Arnold MD PCP - General Family Practice 11/04/23 02/17/24 documented as of this encounter
--- OUTSIDE RECORDS SUMMARY | 2025-04-04 14:33 | XMS_ITS | Encounter Summary ---
Author Organization [facility] Address 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
--- OUTSIDE RECORDS SUMMARY | 2025-04-04 14:33 | XMS_ITS | Encounter Summary ---
Author Organization [facility] Address 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
--- OUTSIDE RECORDS SUMMARY | 2025-04-04 14:33 | XMS_ITS | Encounter Summary ---
Author Organization [facility] Address 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
--- OUTSIDE RECORDS SUMMARY | 2025-04-04 14:33 | XMS_ITS | Encounter Summary ---
Author Organization [facility] Address 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
--- OUTSIDE RECORDS SUMMARY | 2025-04-04 14:33 | XMS_ITS | Clinical Summary ---
Author Organization [facility] Address [address] [place] [address] Care Team Providers Care Rehabilitation Coordinator Name Role Phone Unavailable Primary Care Provider [...] complication, without long-term current use of insulin Take 2 Tablets (1,000 mg) by mouth 2 times daily with meals. 400 Tablet 4 Active tamsulosin (FLOMAX) 0.4 mg capsule Take 2 Capsules (0.8 mg) by mouth daily. 180 Capsule 4 4 Active blood sugar diagnostic (Blood Glucose Test) Strip Test once daily DX code E11.9 100 Strip 11 4 Active Active Problems [...] Encounters Date Type Department Care Team Description 02/01/2025 External Device Data ST[facility] ABSTRACTION Provider, Abstract from Last 3 Months Immunizations Immunization Administration Dates Next Due (Nexio) COVID-19 VACCINE - EMERGENCY USE AUTHORIZATION, AD26,COV2S(PF) [...] than three times a week 09/27/2020 Attends Synagogue Services Not on file 09/27 Do you belong to any clubs o r organizations such as lutheran groups, unions, fraternal or athletic groups, or [...] on file Legal Sex Male 5:12 AM REAL ESTATE ACCOUNT EXECUTIVE Gender Identity Not on file Sexual Orientation [...] MICROALBUMIN ANNUAL SCREEN 06/04/2022 06/04/2021 DIABETES ANNUAL FOOT EXAM 03/07/2024 03/07/2023, 12/2022 LDL CHOLESTEROL ANNUAL 03/07/2024 , 11/07/2022, 07/10/2022, Additional history exists INFLUENZA VACCINE (#1) 2024 03/07/2023, 2018 COVID-19 Vaccine (2 - 2024-2 6 season) 2025 02/23/2021 DIABETES HBA1C Q 6 MONTHS 05/12/20252024, 06/11/2024, 02/25/2024, Additional history exists DIABETES ANNUAL RETINAL EXAM 09/17/2025, 09/16/2022, 09/16/2022, Additional history exists COLORECTAL SCREENING 02/02/2027 02/03/2024, 02/03/2024, 12/05/2022, Additional history exists Colorectal Cancer Screening 02/02/2027 RSV VACCINE (60+ or ) (1 - 1-dose 75+ series) 2027 Medical Devices Implanted Type Area Mold Press Operator Device Identifier Shelf Expiration Date Model / Serial / Lot Clip Endo Resolution 360 235cm [id number] - [id number] Implanted:Qty: 1 on 02/03/2024 by Maksim Garcia MD at [facility] Clip N/A: [employer] [id number] 09/19/2026 [id number] / / [id number] Procedures Procedure Name Priority Date/Time Associated Diagnosis Comments COLONOSCOPY REPORT 02/03/2024 11 :04 AM CDT LIPID PANEL Routine 03/07/2023 11:19 AM CDT Type 2 diabetes mellitus without complication, without long-term current use of insulin ([facility]) HEMOGLOBIN A1C Routine 03/07/2023 11:19 AM CDT Type 2 diabetes mellitus without complication, without long-term current use of insulin ([facility]) MICROALBUMIN/CREATIN INE RATIO, RANDOM UR Routine 06/04/2021 11:44 AM REAL ESTATE ACCOUNT EXECUTIVE HM DIABETES EYE EXAM Routine 01/23/2021 from Last 3 Months or Most Recently Relevant to Health Maintenance Results * COLONOSCOPY REPORT (02/03/2024 11:04 AM CDT) Narrative Procedure Note Maksim Garcia MD - 02/03/2024 11:04 AM CDT [facility] Endoscopy Patient Name: Charles Purcell Procedure Date: [...] of Addenda: [address]; [place] [address] Maksim Garcia MD GI PROCEDURE ORDERABL ES Final Result * (ABNORMAL) HEMOGLOBIN A1C (03/07/2023 11:19 AM CDT) HEMOGLOBIN A1C 6.8(H) <5.7 % of total Hgb [facility] Comment: For someone without known [...] children. ESTIMATED AVERAGE GLUCOSE (MG/DL) 148 mg/dL Narcisa [facility] ESTIMATED AVERAGE GLUCOSE (MMOL/L) 8.2 mmol/L N[facility] Barry Comment: FASTING:YES FASTING: YES Test Performed at: [facility] [address] [place] [address] [place] [place] Blood 03/07/2023 11:1 9 AM CDT 03/07/2023 11:19 AM CDT us Azam Falcon MD CHEMISTRY ORDERABLES Final Re sult [facility] [phone] [facility] [place] [address] [address] [place] [address] * LIPID PANEL (03/07/2023 11:19 AM CDT) CHOLESTEROL 131 <200 mg/dL Narcisa Barry HDL 58 > OR = 40 mg/dL Narcisa Barry TRIGLYCERIDE 126 <150 mg/dL Narcisa Barry LDL CALCULATED 52 mg/dL (calc) Narcisa [facility] Comment: Reference range: <100 Desirable range <100 mg/dL for primary prevention; <70 mg/dL for patients with CHD or diabetic patients with > or = 2 CHD risk factors. LDL-C is now calculated using the Ceasar calculation, which is a validated novel method providing better accuracy than the Friedewald equation in the estimation of LDL-C. Godwin MORTON et al. TATUM. 2013;310(19): 5785-6227 (http://education.[employer]/faq/SRN702) CHOL/HDL RATIO 2.3 <5.0 (calc) Narcisa Barry TOTAL NON-HDL CHOL(LDL+VLDL) 73 <130 mg/dL (calc) [facility] Barry Comment: For patients with diabetes plus 1 major ASCVD risk factor, treating to a non-HDL-C goal of <100 mg/dL (LDL-C of <70 mg/dL) is considered a therapeutic option. FASTING:YES FASTING: YES Test Performed at: [facility] [address] [place] [address] Cuco Barragan Vo Blood 03/07/2023 11:1 9 AM CDT 03/07/2023 11:19 AM CDT Azam Falcon MD CHEMISTRY ORDERABLES Final Re sult Performing Organization Address City/[facility]/ZIP Code Phone Number [facility] [phone] [place] [address] [place] [address] * MICROALBUMIN/CREATININE RATIO, RANDOM UR (06/04/2021 11:44 AM REAL ESTATE ACCOUNT EXECUTIVE) Creatinine, Urine 62 20 - 320 mg/dL [facility] MICROALBUMIN, URINE 1.0 See Note: mg/dL [facility] Comment: Reference Range: Reference Range Not established MICROALBUMIN/CREAT RATIO, UR 16 <30 mcg/mg creat [facility] Comment: The ADA defines abnormalities in albumin excretion as follows: Albuminuria Category Result (mcg/mg creatinine) Normal to Mildly increased <30 Moderately increased 30-299 Severely increased > OR = 300 The ADA recommends that at least two of three specimens collected within a 3-6 month period be abnormal before considering a patient to be within a diagnostic category. Test Performed at: [facility] [address] [place] [address] Maksim Savage D.O., MPH 06/04/2021 11:4 4 AM REAL ESTATE ACCOUNT EXECUTIVE 06/04/2021 11:45 AM REAL ESTATE ACCOUNT EXECUTIVE Azam Falcon MD URINE ORDERABLES Final Result Performing Organization Address City/[facility]/ZIP Co de Phone Number [facility] [address] [facility] [place] [address] * DIABETES EYE EXAM (01/23/2021) Abstract Provider HEALTH MAINTENANCE Edited Resu lt - Final [facility] [place] CLIA# [id number] [address] [place] [phone] from Last 3 Months or Most Recently Relevant to Health Maintenance Insurance MEDICARE PART A AND B ROLI Advance Directives For more information, please contact: [phone] * Full Code (Latest Code Status on File) Date Activated Date Inactivated Comments 02/03/2024 9:34 AM 02/03/2024 1:43 PM * Full Code Date Activated Date Inactivated Comments 12/05/2022 11:21 AM 12/05/2022 3:25 PM * Full Code Date Activated Date Inactivated Comments 11/03/2018 8:20 AM 11/03/2018 11:58 AM
--- OUTSIDE RECORDS SUMMARY | 2025-04-04 14:33 | XMS_ITS | Encounter Summary ---
Author Organization [facility] Address [address] [place] [address] Care Team Providers Care Maintenance And Repair Worker Name Role Phone Greg Arnold MD Primary Care Provider Unavailab le Encounter Details Date Type Department Care Team (Late st Contact Info) Description 11/07/2006 Outpatient Historical [facility] Primary Care - [address] [phone] Azam Falcon MD NO ADDRESS ON FILE Social History Tobacco Use Types Packs/Day Years Used Date Smoking Tobacco: Never Assessed Sex and Gender Information Value Date Recorded Sex Assigned at Not on file Legal Sex Male 5:12 AM ACID SPLICER Gender Identity Not on file Sexual Orientation Not on file documented as of this encounter Plan of Treatment Not on file documented as of this encounter Visit Diagnoses Not on filedocumented in this encounter Care Teams Maintenance And Repair Worker Relationship Specialty Start Date End Date Greg Arnold MD PCP - General Family Practice 11/04/23 02/17/24 documented as of this encounter
--- OUTSIDE RECORDS SUMMARY | 2025-04-04 14:33 | XMS_ITS | Encounter Summary ---
Author Organization [facility] Address 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
--- OUTSIDE RECORDS SUMMARY | 2025-04-04 14:34 | XMS_ITS | Encounter Summary ---
Author Organization [facility] Address [address] [place] [address] Care Team Providers Care Bulldozer Engineer Name Role Phone Greg Arnold MD Primary Care Provider Unavailab le Encounter Details Date Type Department Care Team (Late st Contact Info) Description 08/01/2000 Outpatient Historical [facility] Primary Care - [address] [place] [phone] Azam Falcon MD NO ADDRESS ON FILE Social History Tobacco Use Types Packs/Day Years Used Date Smoking Tobacco: Never Assessed Sex and Gender Information Value Date Recorded Sex Assigned at Not on file Legal Sex Male 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
--- OUTSIDE RECORDS SUMMARY | 2025-04-04 14:34 | XMS_ITS | Encounter Summary ---
Author Organization [facility] Address [address] [place] [address] Care Team Providers Care Gamma Operator Name Role Phone Greg Arnold MD Primary Care Provider Unavailab le Encounter Details Date Type Department Care Team (Late st Contact Info) Description 08/17/1999 Outpatient Historical [facility] Primary Care - [address] [phone] Azam Falcon MD NO ADDRESS ON FILE Social History Tobacco Use Types Packs/Day Years Used Date Smoking Tobacco: Never Assessed Sex and Gender Information Value Date Recorded Sex Assigned at Not on file Legal Sex Male 5:12 AM BATCH ANALYST Gender Identity Not on file Sexual Orientation Not on file documented as of this encounter Plan of Treatment Not on file documented as of this encounter Visit Diagnoses Not on filedocumented in this encounter Care Teams Gamma Operator Relationship Specialty Start Date End Date Greg Arnold MD PCP - General Family Practice 11/04/23 02/17/24 documented as of this encounter
--- OUTSIDE RECORDS SUMMARY | 2025-04-04 14:34 | XMS_ITS | Encounter Summary ---
Author Organization [facility] Address 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
--- OUTSIDE RECORDS SUMMARY | 2025-04-04 14:34 | XMS_ITS | Encounter Summary ---
Author Organization [facility] Address [address] [place] [address] Care Team Providers Care Right Of Way Man Name Role Phone Greg Arnold MD Primary Care Provider Unavailab le Encounter Details Date Type Department Care Team (Late st Contact Info) Description 05/02/2000 Outpatient Historical [facility] Primary Care - [address] [place] [phone] Azam Falcon MD NO ADDRESS ON FILE Social History Tobacco Use Types Packs/Day Years Used Date Smoking Tobacco: Never Assessed Sex and Gender Information Value Date Recorded Sex Assigned at Not on file Legal Sex Male 5:12 AM FISHER CRAB Gender Identity Not on file Sexual Orientation Not on file documented as of this encounter Plan of Treatment Not on file documented as of this encounter Visit Diagnoses Not on filedocumented in this encounter Care Teams Right Of Way Man Relationship Specialty Start Date End Date Greg Arnold MD PCP - General Family Practice 11/04/23 02/17/24 documented as of this encounter
--- OUTSIDE RECORDS SUMMARY | 2025-04-04 14:34 | XMS_ITS | Encounter Summary ---
Author Organization [facility] Address [address] [place] [address] Care Team Providers Care Clinical Nursing Assistant Name Role Phone Greg Arnold MD Primary Care Provider Unavailab le Encounter Details Date Type Department Care Team (Late st Contact Info) Description 10/11/2004 Outpatient Historical [facility] Primary Care - [address] [phone] Azam Falcon MD NO ADDRESS ON FILE Social History Tobacco Use Types Packs/Day Years Used Date Smoking Tobacco: Never Assessed Sex and Gender Information Value Date Recorded Sex Assigned at Not on file Legal Sex Male 5:12 AM CARE PARTNER Gender Identity Not on file Sexual Orientation Not on file documented as of this encounter Plan of Treatment Not on file documented as of this encounter Visit Diagnoses Not on filedocumented in this encounter Care Teams Clinical Nursing Assistant Relationship Specialty Start Date End Date Greg Arnold MD PCP - General Family Practice 11/04/23 02/17/24 documented as of this encounter
--- OUTSIDE RECORDS SUMMARY | 2025-04-04 14:34 | XMS_ITS | Encounter Summary ---
Author Organization [facility] Address 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
--- OUTSIDE RECORDS SUMMARY | 2025-04-04 14:34 | XMS_ITS | Encounter Summary ---
Author Organization [facility] Address [address] [place] [address] Care Team Providers Care Landscape Management Technician Name Role Phone Greg Arnold MD [...] on file Legal Sex Male 5:12 AM HADOOP ENGINEER Gender Identity Not on file Sexual Orientation Not on file documented as of this encounter Plan of Treatment Not on file documented as of this encounter Visit Diagnoses Diagnosis Abdominal pain, unspecified site- Primary documented in this encounter Care Teams Landscape Management Technician Relationship Specialty Start Date End Date Greg Arnold MD PCP - General Family Practice 11/04/23 02/17/24 documented as of this encounter
--- OUTSIDE RECORDS SUMMARY | 2025-04-04 14:34 | XMS_ITS | Encounter Summary ---
Author Organization [facility] Address [address] [place] [address] Care Team Providers Care Steel Unloader Name Role Phone Greg Arnold MD Primary Care Provider Unavailab le Encounter Details Date Type Department Care Team (Late st Contact Info) Description 05/17/2004 Outpatient Historical [facility] Primary Care - [address] [phone] Azam Falcon MD NO ADDRESS ON FILE Social History Tobacco Use Types Packs/Day Years Used Date Smoking Tobacco: Never Assessed Sex and Gender Information Value Date Recorded Sex Assigned at Not on file Legal Sex Male 5:12 AM PRECISION FILER HAND Gender Identity Not on file Sexual Orientation Not on file documented as of this encounter Plan of Treatment Not on file documented as of this encounter Visit Diagnoses Not on filedocumented in this encounter Care Teams Steel Unloader Relationship Specialty Start Date End Date Greg Arnold MD PCP - General Family Practice 11/04/23 02/17/24 documented as of this encounter
--- OUTSIDE RECORDS SUMMARY | 2025-04-04 14:34 | XMS_ITS | Encounter Summary ---
Author Organization [facility] Address [address] [place] [address] Care Team Providers Care Freight Traffic Consultant Name Role Phone Greg Arnold MD Primary Care Provider Unavailab le Encounter Details Date Type Department Care Team (Late st Contact Info) Description 04/11/2000 Outpatient Historical [facility] Primary Care - [address] [phone] Azam Falcon MD NO ADDRESS ON FILE Social History Tobacco Use Types Packs/Day Years Used Date Smoking Tobacco: Never Assessed Sex and Gender Information Value Date Recorded Sex Assigned at Not on file Legal Sex Male 5:12 AM HAND PASTER Gender Identity Not on file Sexual Orientation Not on file documented as of this encounter Plan of Treatment Not on file documented as of this encounter Visit Diagnoses Not on filedocumented in this encounter Care Teams Freight Traffic Consultant Relationship Specialty Start Date End Date Greg Arnold MD PCP - General Family Practice 11/04/23 02/17/24 documented as of this encounter
--- OUTSIDE RECORDS SUMMARY | 2025-04-04 14:34 | XMS_ITS | Encounter Summary ---
Author Organization [facility] Address [address] [place] [address] Care Team Providers Care Micrographics Services Supervisor Name Role Phone Greg Arnold MD Primary Care Provider Unavailab le Encounter Details Date Type Department Care Team (Late st Contact Info) Description 01/11/2005 Outpatient Historical [facility] Primary Care - [address] [place] [phone] Azam Falcon MD NO ADDRESS ON FILE Social History Tobacco Use Types Packs/Day Years Used Date Smoking Tobacco: Never Assessed Sex and Gender Information Value Date Recorded Sex Assigned at Not on file Legal Sex Male 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
--- OUTSIDE RECORDS SUMMARY | 2025-04-04 14:34 | XMS_ITS | Encounter Summary ---
Author Organization [facility] Address 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 LAST VISIT: 05/15/05 PCP: maria eugenia WHO CALLED: Pharmacy called. PHARMACY NUMBER: [phone] SECTION 1: REQUESTED ACTION maia 07/12/05 at 10:12 am: MEDICATION REQUEST: MEDICATION REQUEST: Patient requests a refill. MEDICATIONS: LISINOPRIL ORAL TABLET 40 MG, 1 Every Morning, 30 Dispensed, 5 Fills, 30 Duration/Days Supply, status: NEW PRESCRIPTION, 01/11/2005. Pharm asking for Lisinopril 20mg # 30 L/R 11/25 Ok to refill? /lashon need chart FINAL ACTION: [facility] 07/12/05 at 01:22 pm in office/laney SECTION 2: RN/SOLE TACKER RESPONSE: [facility] 07/12/05 at 01:29 pm MEDICATIONS: LISINOPRIL ORAL TABLET 40 MG, 1 Every Morning, 30 Dispensed, 5 Fills, 30 Duration/Days Supply, status: DISCONTINUED, 07/12/2005. LISINOPRIL ORAL TABLET 20 MG, 1 Every Day, 30 Dispensed, 3 Fills, 30 Duration/Days Supply, status: NEW PRESCRIPTION, 07/12/2005. FINAL ACTION: [facility] 07/12/05 at 01:34 pm Called pharmacy at 07/12/05 at 01:34 pm. ritchie/laney Electronically Signed by: Laney Diaz on Tuesday, July 12, 2005 documented in this encounter Plan of Treatment Not on file documented as of this encounter Visit Diagnoses Not on filedocumented in this encounter Care Teams Circuit Recorder Relationship Specialty Start Date End Date Greg Arnold MD PCP - General Family Practice 11/04/23 02/17/24 documented as of this encounter
--- OUTSIDE RECORDS SUMMARY | 2025-04-04 14:34 | XMS_ITS | Encounter Summary ---
Author Organization [facility] Address 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
--- OUTSIDE RECORDS SUMMARY | 2025-04-04 14:34 | XMS_ITS | Encounter Summary ---
Author Organization [facility] Address 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
--- OUTSIDE RECORDS SUMMARY | 2025-04-04 14:34 | XMS_ITS | Encounter Summary ---
Author Organization [facility] Address [address] [place] [address] Care Team Providers Care Senior Qa Automation Engineer Name Role Phone Greg Arnold MD Primary Care Provider Unavailab le Encounter Details Date Type Department Care Team (Late st Contact Info) Description 05/15/2005 Outpatient Historical [facility] Primary Care - [address] [phone] Azam Falcon MD NO ADDRESS ON FILE Social History Tobacco Use Types Packs/Day Years Used Date Smoking Tobacco: Never Assessed Sex and Gender Information Value Date Recorded Sex Assigned at Not on file Legal Sex Male 5:12 AM FACILITY ENGINEER Gender Identity Not on file Sexual Orientation Not on file documented as of this encounter Plan of Treatment Not on file documented as of this encounter Visit Diagnoses Not on filedocumented in this encounter Care Teams Senior Qa Automation Engineer Relationship Specialty Start Date End Date Greg Arnold MD PCP - General Family Practice 11/04/23 02/17/24 documented as of this encounter
--- OUTSIDE RECORDS SUMMARY | 2025-04-04 14:34 | XMS_ITS | Encounter Summary ---
Author Organization [facility] Address 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
--- OUTSIDE RECORDS SUMMARY | 2025-04-04 14:34 | XMS_ITS | Encounter Summary ---
Author Organization [facility] Address 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 Gender Identity Not on file Sexual Orientation Not on file documented as of this encounter Plan of Treatment Not on file documented as of this encounter Procedures Procedure Name Priority Date/Time Associated Diagnosis Comments PATHOLOGY Routine 09/21/2008 1:55 PM CDT HEMOGLOBIN AND HEMATOCRIT Routine 09/19/2008 1:32 PM CDT documented in this encounter Results * PATHOLOGY (09/21/2008 1:55 PM CDT) FINAL REPORT [address] [address] Patient: CHARLES LONGO : 1950 Procedure Date: 09/21/2008 Accession Date: 09/21/2008 Case No: [id number] Ordering Dr: SATHISH PIMENTEL Case types AW, BW, FW, NW and SH are performed by [facility], [place], [place] SURGICAL PATHOLOGY & NON-GYNECOLOGIC CYTOPATHOLOGY REPORT [...] 05:40 am Microscopic: The slide is labeled [id number] and Charles Longo. 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 NATTY/TERESSA 09.22.2008 05:23 pm Staging Form: No. ELECTRONIC SIGNATURE FOR JOSESITO BLAND M.D.- 09/23/08 07:07 am INTERFACE SYSTEM 09/21/2008 1:55 PM CDT us Sathish Pimentel MD PATHOLOGY/CYTOLOGY ORDERABL ES Final Result Performing Organization Address [facility] Co de Phone Number INTERFACE SYSTEM Refer to clinic/hospital department * HEMOGLOBIN AND HEMATOCRIT (09/19/2008 1:32 PM CDT) HEMATOCRIT 42.5 40.0 - 48.0 % [facility] HEMOGLOBIN 13.8 13.6 - 16.5 g/dL [facility] Blood specimen (specimen) 09/19/2008 1:32 PM CDT 09/19/2008 3:00 PM CDT us Sathish Pimentel MD HEMATOLOGY ORDERABLES Final Result Performing Organization Address [facility] de Phone Number INTERFACE SYSTEM Refer to clinic/hospital department [facility] CLIA# [id number] [address] [place] [address] documented in this encounter Visit Diagnoses Diagnosis Viral warts, unspecified documented in this encounter Care Teams Barrel Plater Relationship Specialty Start Date End Date Greg Arnold MD PCP - General Family Practice 11/04/23 02/17/24 documented as of this encounter
--- OUTSIDE RECORDS SUMMARY | 2025-04-04 14:34 | XMS_ITS | Encounter Summary ---
Author Organization [facility] Address [address] [place] [address] Care Team Providers Care Water Well Driller Name Role Phone Greg Arnold MD Primary Care Provider Unavailab le Encounter Details Date Type Department Care Team (Late st Contact Info) Description 05/15/2005 Outpatient Historical [facility] Primary Care - [address] [phone] Azam Falcon MD NO ADDRESS ON FILE Social History Tobacco Use Types Packs/Day Years Used Date Smoking Tobacco: Never Assessed Sex and Gender Information Value Date Recorded Sex Assigned at Not on file Legal Sex Male 5:12 AM SENIOR APPLICATIONS ANALYST Gender Identity Not on file Sexual Orientation Not on file documented as of this encounter Plan of Treatment Not on file documented as of this encounter Visit Diagnoses Not on filedocumented in this encounter Care Teams Water Well Driller Relationship Specialty Start Date End Date Greg Arnold MD PCP - General Family Practice 11/04/23 02/17/24 documented as of this encounter
--- OUTSIDE RECORDS SUMMARY | 2025-04-04 14:34 | XMS_ITS | Encounter Summary ---
Author Organization [facility] Address 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
--- OUTSIDE RECORDS SUMMARY | 2025-04-04 14:34 | XMS_ITS | Encounter Summary ---
Author Organization [facility] Address [address] [place] [address] Care Team Providers Care Lumber Driver Name Role Phone Greg Arnold MD Primary Care Provider Unavailab le Encounter Details Date Type Department Care Team (Late st Contact Info) Description 10/14/2007 Orders Only [facility] Primary Care - [address] [place] [phone] Azam Falcon MD NO ADDRESS ON FILE Social History Tobacco Use Types Packs/Day Years Used Date Smoking Tobacco: Never Assessed Sex and Gender Information Value Date Recorded Sex Assigned at Not on file Legal Sex Male 5:12 AM WIRE WHEELER Gender Identity Not on file Sexual Orientation Not on file documented as of this encounter Plan of Treatment Not on file documented as of this encounter Visit Diagnoses Not on filedocumented in this encounter Care Teams Lumber Driver Relationship Specialty Start Date End Date Greg Arnold MD PCP - General Family Practice 11/04/23 02/17/24 documented as of this encounter
--- OUTSIDE RECORDS SUMMARY | 2025-04-04 14:34 | XMS_ITS | Encounter Summary ---
Author Organization [facility] Address [address] [place] [address] Care Team Providers Care Methods Examiner Name Role Phone Greg Arnold MD Primary Care Provider Unavailab le Encounter Details Date Type Department Care Team (Late st Contact Info) Description 10/02/2007 Orders Only [facility] Primary Care - [address] [place] [phone] Azam Falcon MD NO ADDRESS ON FILE Social History Tobacco Use Types Packs/Day Years Used Date Smoking Tobacco: Never Assessed Sex and Gender Information Value Date Recorded Sex Assigned at Not on file Legal Sex Male 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
--- OUTSIDE RECORDS SUMMARY | 2025-04-04 14:34 | XMS_ITS | Encounter Summary ---
Author Organization [facility] Address [address] [place] [address] Care Team Providers Care Deodorizer Operator Name Role Phone Greg Arnold MD Primary Care Provider Unavailab le Encounter Details Date Type Department Care Team (Late st Contact Info) Description 01/02/2001 Outpatient Historical [facility] Primary Care - [address] [place] [phone] Azam Falcon MD NO ADDRESS ON FILE Social History Tobacco Use Types Packs/Day Years Used Date Smoking Tobacco: Never Assessed Sex and Gender Information Value Date Recorded Sex Assigned at Not on file Legal Sex Male 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
--- OUTSIDE RECORDS SUMMARY | 2025-04-04 14:34 | XMS_ITS | Encounter Summary ---
Author Organization [facility] Address 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 #: [id number] POC: Ordering: Shasha Attending MD: Shasha Admitting [...] 14:05:46 Procedure Note Provider, Historical - 09/20/2008 [address] [address] [place] [address] [email or web address] Patient: Charles Purcell MRN: Study ID: ADULT STRESS ECH Gender: Tavares : 1950 Age: 58 years Race: 1 Room: Bed: Height: Study Date: September 20, 2008 Patient status: Outpatient Weight: Access. #: [id number] POC: Ordering: Shasha Attending MD: Shasha Admitting [...] unspecified documented in this encounter Care Teams Court Monitor Relationship Specialty Start Date End Date Greg Arnold MD PCP - General Family Practice 11/04/23 02/17/24 documented as of this encounter
--- OUTSIDE RECORDS SUMMARY | 2025-04-04 14:34 | XMS_ITS | Encounter Summary ---
Author Organization [facility] Address [address] [place] [address] Care Team Providers Care Mint Wafer Depositor Name Role Phone Greg Arnold MD Primary Care Provider Unavailab le Encounter Details Date Type Department Care Team (Late st Contact Info) Description 12/04/2001 Outpatient Historical [facility] Primary Care - [address] [phone] Azam Falcon MD NO ADDRESS ON FILE Social History Tobacco Use Types Packs/Day Years Used Date Smoking Tobacco: Never Assessed Sex and Gender Information Value Date Recorded Sex Assigned at Not on file Legal Sex Male 5:12 AM SUEDE BRUSHER Gender Identity Not on file Sexual Orientation Not on file documented as of this encounter Plan of Treatment Not on file documented as of this encounter Visit Diagnoses Not on filedocumented in this encounter Care Teams Mint Wafer Depositor Relationship Specialty Start Date End Date Greg Arnold MD PCP - General Family Practice 11/04/23 02/17/24 documented as of this encounter
--- OUTSIDE RECORDS SUMMARY | 2025-04-04 14:34 | XMS_ITS | Encounter Summary ---
Author Organization [facility] Address [address] [place] [address] Care Team Providers Care Manager Of Regulatory Affairs Name Role Phone Greg Arnold MD Primary Care Provider Unavailab le Encounter Details Date Type Department Care Team (Late st Contact Info) Description 10/16/2007 Orders Only [facility] Primary Care - [address] [place] [phone] Azam Falcon MD NO ADDRESS ON FILE Social History Tobacco Use Types Packs/Day Years Used Date Smoking Tobacco: Never Assessed Sex and Gender Information Value Date Recorded Sex Assigned at Not on file Legal Sex Male 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
--- OUTSIDE RECORDS SUMMARY | 2025-04-04 14:34 | XMS_ITS | Encounter Summary ---
Author Organization [facility] Address [address] [place] [address] Care Team Providers Care Guide Travel Name Role Phone Greg Arnold MD Primary Care Provider Unavailab le Encounter Details Date Type Department Care Team (Late st Contact Info) Description 10/05/2007 Orders Only [facility] Primary Care - [address] [place] [phone] Azam Falcon MD NO ADDRESS ON [...] on filedocumented in this encounter Care Teams Guide Travel Relationship Specialty Start Date End Date Greg Arnold MD PCP - General Family Practice 11/04/23 02/17/24 documented as of this encounter
--- OUTSIDE RECORDS SUMMARY | 2025-04-04 14:34 | XMS_ITS | Encounter Summary ---
Author Organization [facility] [employer] [facility] Address [address] [place] [address] Care Team Providers Care Starch Mangle Tender Name Role Phone Greg Arnold MD Primary [...] on file Legal Sex Male 5:12 AM OFFICER CAPTAIN Gender Identity Not on file Sexual Orientation Not on file documented as of this encounter Plan of Treatment Not on file documented as of this encounter Visit Diagnoses Diagnosis Special screening for malignant neoplasms, colon- Primary documented in this encounter Care Teams Starch Mangle Tender Relationship Specialty Start Date End Date Greg Arnold MD PCP - General Family Practice 11/04/23 02/17/24 documented as of this encounter
--- OUTSIDE RECORDS SUMMARY | 2025-04-04 14:34 | XMS_ITS | Encounter Summary ---
Author Organization [facility] Address [address] [place] [address] Care Team Providers Care Passenger Car Inspector Name Role Phone Greg Arnold MD Primary Care Provider Unavailab le Encounter Details Date Type Department Care Team (Late st Contact Info) Description 02/24/1998 Outpatient Historical [facility] Primary Care - [address] [phone] Azam Falcon MD NO ADDRESS ON FILE Social History Tobacco Use Types Packs/Day Years Used Date Smoking Tobacco: Never Assessed Sex and Gender Information Value Date Recorded Sex Assigned at Not on file Legal Sex Male 5:12 AM REAL TIME TRADER Gender Identity Not on file Sexual Orientation Not on file documented as of this encounter Plan of Treatment Not on file documented as of this encounter Visit Diagnoses Not on filedocumented in this encounter Care Teams Passenger Car Inspector Relationship Specialty Start Date End Date Greg Arnold MD PCP - General Family Practice 11/04/23 02/17/24 documented as of this encounter
--- OUTSIDE RECORDS SUMMARY | 2025-04-04 14:34 | XMS_ITS | Encounter Summary ---
Author Organization [facility] Address 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
--- OUTSIDE RECORDS SUMMARY | 2025-04-04 14:34 | XMS_ITS | Encounter Summary ---
Author Organization [facility] Address [address] [place] [address] Care Team Providers Care Oncology Specialist Name Role Phone Greg Arnold MD Primary Care Provider Unavailab le Encounter Details Date Type Department Care Team (Late st Contact Info) Description 10/11/[address] [facility] Primary Care - [address] [address] Azam Falcon MD NO ADDRESS ON FILE Social History Tobacco Use Types Packs/Day Years Used Date Smoking Tobacco: Never Assessed Sex and Gender Information Value Date Recorded Sex Assigned at Not on file Legal Sex Male 5:12 AM NIGHT COORDINATOR Gender Identity Not on file Sexual Orientation Not on file documented as of this encounter Plan of Treatment Not on file documented as of this encounter Visit Diagnoses Not on filedocumented in this encounter Care Teams Oncology Specialist Relationship Specialty Start Date End Date Greg Arnold MD PCP - General Family Practice 11/04/23 02/17/24 documented as of this encounter
--- OUTSIDE RECORDS SUMMARY | 2025-04-04 14:34 | XMS_ITS | Encounter Summary ---
Author Organization [facility] Address [address] [place] [address] Care Team Providers Care Continuity Coordinator Name Role Phone Greg Arnold MD Primary Care Provider Unavailab le Encounter Details Date Type Department Care Team (Late st Contact Info) Description 10/02/2007 Outpatient Historical [facility] Primary Care - [address] [address] Azam Falcon MD NO ADDRESS ON FILE Social History Tobacco Use Types Packs/Day Years Used Date Smoking Tobacco: Never Assessed Sex and Gender Information Value Date Recorded Sex Assigned at Not on file Legal Sex Male 5:12 AM SHOE STAMPER Gender Identity Not on file Sexual Orientation Not on file documented as of this encounter Plan of Treatment Not on file documented as of this encounter Visit Diagnoses Not on filedocumented in this encounter Care Teams Continuity Coordinator Relationship Specialty Start Date End Date Greg Arnold MD PCP - General Family Practice 11/04/23 02/17/24 documented as of this encounter
--- OUTSIDE RECORDS SUMMARY | 2025-04-04 14:34 | XMS_ITS | Encounter Summary ---
Author Organization [facility] Address 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
--- OUTSIDE RECORDS SUMMARY | 2025-04-04 14:34 | XMS_ITS | Encounter Summary ---
Author Organization [facility] Address [address] [place] [address] Care Team Providers Care Methods Study Analyst Name Role Phone Greg Arnold MD Primary Care Provider Unavailab le Encounter Details Date Type Department Care Team (Late st Contact Info) Description 10/02/2007 Outpatient Historical [facility] Primary Care - [address] [address] Azam Falcon MD NO ADDRESS ON FILE Social History Tobacco Use Types Packs/Day Years Used Date Smoking Tobacco: Never Assessed Sex and Gender Information Value Date Recorded Sex Assigned at Not on file Legal Sex Male 5:12 AM RN SECURITY Gender Identity Not on file Sexual Orientation [...] filedocumented in this encounter Care Teams Methods Study Analyst Relationship Specialty Start Date End Date Greg Arnold MD PCP - General Family Practice 11/04/23 02/17/24 documented as of this encounter
--- OUTSIDE RECORDS SUMMARY | 2025-04-04 14:35 | XMS_ITS | Encounter Summary ---
Author Organization [facility] Address 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
--- OUTSIDE RECORDS SUMMARY | 2025-04-04 14:35 | XMS_ITS | Encounter Summary ---
Author Organization [facility] Address 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
--- OUTSIDE RECORDS SUMMARY | 2025-04-04 14:35 | XMS_ITS | Encounter Summary ---
Author Organization [facility] Address [address] [place] [address] Care Team Providers Care Trash Hauler Name Role Phone Greg Arnold MD Primary Care Provider Unavailab le Encounter Details Date Type Department Care Team (Late st Contact Info) Description 07/06/2007 Outpatient Historical [facility] Primary Care - [address] [address] Azam Falcon MD NO ADDRESS ON FILE Social History Tobacco Use Types Packs/Day Years Used Date Smoking Tobacco: Never Assessed Sex and Gender Information Value Date Recorded Sex Assigned at Not on file Legal Sex Male 5:12 AM CHIEF SPECIALIST LEED Gender Identity Not on file Sexual Orientation Not on file documented as of this encounter Plan of Treatment Not on file documented as of this encounter Visit Diagnoses Not on filedocumented in this encounter Care Teams Trash Hauler Relationship Specialty Start Date End Date Greg Arnold MD PCP - General Family Practice 11/04/23 02/17/24 documented as of this encounter
--- OUTSIDE RECORDS SUMMARY | 2025-04-04 14:35 | XMS_ITS | Encounter Summary ---
Author Organization [facility] Address 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 LAB ORDERS: Order number: [id number] Test Ordered: BASIC METABOLIC PANEL & GFR 1607 V70.0-ROUTINE GENERAL MEDICAL EXAMINATION He needs weight reduction and a greater level of exercise. This was discussed. Routine screening was discussed. He is up-to-date with a colonoscopy 3 years ago with negative findings and with his family history a 10 year follow-up would be recommended at this time. LAB ORDERS: Order number: [id number] Test Ordered: LIPID PANEL 1078 V76.44-SCREEN FOR CA OF PROSTATE Check PSA. LAB ORDERS: Order number: [id number] Test Ordered: PSA, TOTAL 1002 078.19-WART Lesions were treated with liquid nitrogen on the extremities and trunk. LAB ORDERS: Order number: [id number] Test Ordered: DESTRUCTION BENIGN LESIONS TO 14 [id number] Electronically Signed by: Azam Falcon MD on Friday, November 12, 2006 documented in this encounter Plan of Treatment Not on file documented as of this encounter Visit Diagnoses Not on filedocumented in this encounter Care Teams Patient Access Registrar Relationship Specialty Start Date End Date Greg Arnold MD PCP - General Family Practice 11/04/23 02/17/24 documented as of this encounter
--- OUTSIDE RECORDS SUMMARY | 2025-04-04 14:35 | XMS_ITS | Encounter Summary ---
Author Organization [facility] Address [address] [place] [address] Care Team Providers Care Cake Press Operator Name Role Phone Greg Arnold MD Primary Care Provider Unavailab le Encounter Details Date Type Department Care Team (Late st Contact Info) Description 01/07/[address] 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
--- OUTSIDE RECORDS SUMMARY | 2025-04-04 14:35 | XMS_ITS | Encounter Summary ---
Author Organization [facility] Address [address] [place] [address] Care Team Providers Care Tram Inspector Name Role Phone Greg Arnold MD Primary Care Provider Unavailab le Encounter Details Date Type Department Care Team (Late st Contact Info) Description 12/23/2006 Orders Only [facility] Primary Care - [address] [address] Azam Falcon MD NO ADDRESS ON FILE Social History Tobacco Use Types Packs/Day Years Used Date Smoking Tobacco: Never Assessed Sex and Gender Information Value Date Recorded Sex Assigned at Not on file Legal Sex Male 5:12 AM CV RN Gender Identity Not on file Sexual Orientation Not on file documented as of this encounter Progress Notes * Azam Falcon MD - 10/21/2007 12:27 PM CDT TIME:10:25 am PATIENT`S HOME PHONE: PATIENT`S WORK PHONE: PATIENT`S INSURANCE: [facility] WHO TOOK THE CALL: Thalia Garcia M GENERAL INFORMATION PATIENT STATUS: Established Patient. PCP: pc. [place] PHONE NUMBER: [phone] WHO CALLED: Patient called. PHARMACY NUMBER: [phone] SECTION 1: REQUESTED ACTION peisgm 12/23/06 at [...] on filedocumented in this encounter Care Teams Tram Inspector Relationship Specialty Start Date End Date Greg Arnold MD PCP - General Family Practice 11/04/23 02/17/24 documented as of this encounter
--- OUTSIDE RECORDS SUMMARY | 2025-04-04 14:35 | XMS_ITS | Encounter Summary ---
Author Organization [facility] Address [address] [place] [address] Care Team Providers Care Kingsbury Machine Operator Name Role Phone Greg Arnold MD Primary Care Provider Unavailab le Encounter Details Date Type Department Care Team (Latest Contact Info) Description 11/07/2006 Outpatient Historical [facility] Primary Care - [address] [address] Azam Falcon MD NO ADDRESS ON FILE Special Screening for Malignant Neoplasm of Prostate (Primary Dx) Social History Tobacco Use Types Packs/Day Years Used Date Smoking Tobacco: Never Assessed Sex and Gender Information Value Date Recorded Sex Assigned at Not on file Legal Sex Male 5:12 AM CORONER/MEDICAL EXAMINER Gender Identity Not on file Sexual Orientation Not on file documented as of this encounter Plan of Treatment Not on file documented as of this encounter Visit Diagnoses Diagnosis Special screening for malignant neoplasm of prostate- Primary documented in this encounter Care Teams [place] Machine Operator Relationship Specialty Start Date End Date Greg Arnold MD PCP - General Family Practice 11/04/23 02/17/24 documented as of this encounter
--- OUTSIDE RECORDS SUMMARY | 2025-04-04 14:35 | XMS_ITS | Encounter Summary ---
Author Organization [facility] Address [address] [place] [address] Care Team Providers Care Spa Associate Name Role Phone Greg Arnold MD Primary Care Provider Unavailab le Encounter Details Date Type Department Care Team (Late st Contact Info) Description 07/06/2007 Outpatient Historical [facility] Primary Care - [address] [address] Azam Falcon MD NO ADDRESS ON FILE Social History Tobacco Use Types Packs/Day Years Used Date Smoking Tobacco: Never Assessed Sex and Gender Information Value Date Recorded Sex Assigned at Not on file Legal Sex Male 5:12 AM TOWER SWITCH OPERATOR Gender Identity Not on file Sexual Orientation Not on file documented as of this encounter Plan of Treatment Not on file documented as of this encounter Visit Diagnoses Not on filedocumented in this encounter Care Teams Spa Associate Relationship Specialty Start Date End Date Greg Arnold MD PCP - General Family Practice 11/04/23 02/17/24 documented as of this encounter
--- OUTSIDE RECORDS SUMMARY | 2025-04-04 14:35 | XMS_ITS | Encounter Summary ---
Author Organization [facility] Address 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 LAST VISIT: 07/23/07 PCP: maria eugenia. ALTERNATIVE PHONE NUMBER: [phone] WHO CALLED: Patient called. CURRENT ALLERGY LIST: [...] 9:56 AM CDT TEMPERATURE: 98??f Oral WEIGHT: [id number] BLOOD PRESSURE: 130/90 Right Arm Sitting NURSE [...] NEW PRESCRIPTION, 09/11/2007. LAB ORDERS: Order number: [id number] Test Ordered: CHLAMYDIA & GC PROBE [id number] Electronically Signed by: Azam Falcon MD on August documented in this encounter Plan of Treatment Not on file documented as of this encounter Visit Diagnoses Not on filedocumented in this encounter Care Teams Police Lieutenant Precinct Relationship Specialty Start Date End Date Greg Arnold MD PCP - General Family Practice 11/04/23 02/17/24 documented as of this encounter
--- OUTSIDE RECORDS SUMMARY | 2025-04-04 14:35 | XMS_ITS | Encounter Summary ---
Author Organization [facility] Address 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 Advised treatment and additional testing. Advised of future risk of spread. MEDICATIONS: VALTREX ORAL TABLET 1 GM, 1 Two Times A Day, 20 Dispensed, status: NEW PRESCRIPTION, 01/07/2007. LAB ORDERS: Order number: [id number] Test Ordered: RPR 5100 Order number: [id number] Test Ordered: CHLAMYDIA/N. GONORRHOEAE, AMPLIFIED DNA 2081 Electronically Signed by: Azam Falcon MD on Sunday, January 14, 2007 documented in this encounter Plan of Treatment Not on file documented as of this encounter Visit Diagnoses Not on filedocumented in this encounter Care Teams Network Cabler Relationship Specialty Start Date End Date Greg Arnold MD PCP - General Family Practice 11/04/23 02/17/24 documented as of this encounter
--- OUTSIDE RECORDS SUMMARY | 2025-04-04 14:35 | XMS_ITS | Encounter Summary ---
Author Organization [facility] Address [address] [place] [address] Care Team Providers Care Equipment Mechanic Name Role Phone Greg Arnold MD Primary Care Provider Unavailab le Encounter Details Date Type Department Care Team (Late st Contact Info) Description 01/07/2007 Outpatient Historical [facility] Primary Care - [address] [address] Azam Falcon MD NO ADDRESS ON FILE Social History Tobacco Use Types Packs/Day Years Used Date Smoking Tobacco: Never Assessed Sex and Gender Information Value Date Recorded Sex Assigned at Not on file Legal Sex Male 5:12 AM SAFETY RISK LEAD Gender Identity Not on file Sexual Orientation Not on file documented as of this encounter Plan of Treatment Not on file documented as of this encounter Visit Diagnoses Not on filedocumented in this encounter Care Teams Equipment Mechanic Relationship Specialty Start Date End Date Greg Arnold MD PCP - General Family Practice 11/04/23 02/17/24 documented as of this encounter
--- OUTSIDE RECORDS SUMMARY | 2025-04-04 14:35 | XMS_ITS | Encounter Summary ---
Author Organization [facility] Address 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
--- OUTSIDE RECORDS SUMMARY | 2025-04-04 14:35 | XMS_ITS | Encounter Summary ---
Author Organization [facility] Address [address] [place] [address] Care Team Providers Care Rug Cutter Helper Name Role Phone Greg Arnold MD Primary Care Provider Unavailab le Encounter Details Date Type Department Care Team (Late st Contact Info) Description 07/23/2007 Outpatient Historical [facility] Primary Care - [facility] [address] [place] [address] Estella Manning MD [address] [place] [address] Social History Tobacco Use Types Packs/Day Years Used Date Smoking Tobacco: Never Assessed Sex and Gender Information Value Date Recorded Sex Assigned at Not on file Legal 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
--- OUTSIDE RECORDS SUMMARY | 2025-04-04 14:35 | XMS_ITS | Encounter Summary ---
Author Organization [facility] Address [address] [place] [address] Care Team Providers Care Inpatient Auditor Name Role Phone Greg Arnold MD Primary Care Provider Unavailab le Encounter Details Date Type Department Care Team (Latest Contact Info) Description 01/07/2007 Outpatient Historical [facility] Primary Care - [address] [address] Azam Falcon MD NO ADDRESS ON FILE Unspecified Genital Herpes (Primary Dx) Social History Tobacco Use Types Packs/Day Years Used Date Smoking Tobacco: Never Assessed Sex and Gender Information Value Date Recorded Sex Assigned at Not on file Legal Sex Male 5:12 AM MECHANICAL INTERN Gender Identity Not on file Sexual [...] INTERFACE SYSTEM Comment: Lab test performed by: [employer] [address] [place] [address] [address] ROSINA BALDWIN MD 01/07/2007 2:13 PM CDT Azam Falcon MD CHEMISTRY ORDERABLES Edited INTERFACE SYSTEM Refer to clinic/hospital department * CHLAMYDIA/N. GONORRHOEAE, DNA (01/07/2007 2:13 PM CDT) CHLAMYDIA TRACHOMATIS DNA NOT DETECTED NOT DETECTED INTERFACE SYSTEM NEISSERIA GONORRHOEAE DNA NOT DETECTED NOT DETECTED INTERFACE SYSTEM Comment: Lab test performed by: [employer] [address] [address] ROSINA BALDWIN 01/07/2007 2:13 PM CDT Azam Falcon MD BODY FLUIDS AND STOOLS Edited INTERFACE SYSTEM Refer to clinic/hospital department documented in this encounter Visit Diagnoses Diagnosis Genital herpes, unspecified- Primary documented in this encounter Care Teams Inpatient Auditor Relationship Specialty Start Date End Date Greg Arnold MD PCP - General Family Practice 11/04/23 02/17/24 documented as of this encounter
--- OUTSIDE RECORDS SUMMARY | 2025-04-04 14:35 | XMS_ITS | Encounter Summary ---
Author Organization [facility] Address 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 LAST VISIT: 11-07-06 PCP: Ezekiel. ALTERNATIVE PHONE NUMBER: [phone] WHO CALLED: Patient called. CURRENT ALLERGY LIST: [...] on filedocumented in this encounter Care Teams Drafter Civil (Cad) Relationship Specialty Start Date End Date Greg Arnold MD PCP - General Family Practice 11/04/23 02/17/24 documented as of this encounter
--- OUTSIDE RECORDS SUMMARY | 2025-04-04 14:35 | XMS_ITS | Encounter Summary ---
Author Organization [facility] Address 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 GONORRHOEAE, DNA Routine 09/11/2007 9:33 PM CDT documented in this encounter Results * CHLAMYDIA/N. GONORRHOEAE, DNA (09/11/2007 9:33 PM CDT) NEISSERIA GONORRHOEAE DNA NOT DETECTED NOT DETECTED [facility] Comment: Lab test performed by: [employer] [address] ROSINA BALDWIN MD CHLAMYDIA TRACHOMATIS DNA NOT DETECTED NOT DETECTED [facility] Specimen of unknown material (specimen) (Urethral) 09/11/2007 9:33 PM CDT 09/11/2007 9:57 PM CDT us Azam Falcon MD BODY FLUIDS AND STOOLS Final Result [facility] [address] [place] [place] [address] documented in this encounter Visit Diagnoses Diagnosis Unspecified nongonococcal urethritis (KYLAH) documented in this encounter Care Teams Facility Assistant Relationship Specialty Start Date End Date Greg Arnold MD PCP - General Family Practice 11/04/23 02/17/24 documented as of this encounter
--- OUTSIDE RECORDS SUMMARY | 2025-04-04 14:35 | XMS_ITS | Encounter Summary ---
Author Organization [facility] Address [address] [place] [address] Care Team Providers Care Real Estate Associate Attorney Name Role Phone Greg Arnold MD Primary Care Provider Unavailab le Encounter Details Date Type Department Care Team (Late st Contact Info) Description 09/23/2007 Orders Only [facility] Primary Care - [facility] [address] [facility] [place] [address] Estella Manning MD [address] [place] [address] [address] [place] [address] Social History Tobacco Use Types Packs/Day Years Used Date Smoking Tobacco: Never Assessed Sex and Gender Information Value Date Recorded Sex Assigned at Not on file Legal Sex Male 5:12 AM CREATIVE SPECIALIST Gender Identity Not on file Sexual Orientation Not on file documented as of this encounter Progress Notes * Estella Manning MD - 11/06/2007 11:12 AM CDT TIME:02:55 pm PATIENT`S HOME PHONE: PATIENT`S WORK PHONE: PATIENT`S INSURANCE: [facility] WHO TOOK THE CALL: Meggan Cowan A GENERAL INFORMATION PATIENT STATUS: Established Patient. LAST VISIT: 09/11/07 PCP: maria eugenia. ALTERNATIVE PHONE NUMBER: [phone] WHO CALLED: Patient called. CURRENT ALLERGY LIST: NO KNOWN ALLERGIES PHARMACY NUMBER: [phone] PROBLEMS: PINK EYE: Patient complains of pink [...] on filedocumented in this encounter Care Teams Real Estate Associate Attorney Relationship Specialty Start Date End Date Greg Arnold MD PCP - General Family Practice 11/04/23 02/17/24 documented as of this encounter
--- OUTSIDE RECORDS SUMMARY | 2025-04-04 14:35 | XMS_ITS | Encounter Summary ---
Author Organization [facility] Address [address] [place] [address] Care Team Providers Care Fence Laborer Name Role Phone Greg Arnold MD Primary Care Provider Unavailab le Encounter Details Date Type Department Care Team (Late st Contact Info) Description 04/16/2007 Outpatient Historical [facility] Primary Care - [address] [address] Azam Falcon MD NO ADDRESS ON FILE Social History Tobacco Use Types Packs/Day Years Used Date Smoking Tobacco: Never Assessed Sex and Gender Information Value Date Recorded Sex Assigned at Not on file Legal Sex Male 5:12 AM TANK SETTER Gender Identity Not on file Sexual Orientation Not on file documented as of this encounter Plan of Treatment Not on file documented as of this encounter Visit Diagnoses Not on filedocumented in this encounter Care Teams Fence Laborer Relationship Specialty Start Date End Date Greg Arnold MD PCP - General Family Practice 11/04/23 02/17/24 documented as of this encounter
--- OUTSIDE RECORDS SUMMARY | 2025-04-04 14:35 | XMS_ITS | Encounter Summary ---
Author Organization [facility] Address 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 LAST VISIT: 07-23-07 PCP: Ezekiel. ALTERNATIVE PHONE NUMBER: [phone] WHO CALLED: Patient called. CURRENT ALLERGY LIST: NO KNOWN ALLERGIES PHARMACY NUMBER: [phone] PROBLEMS: rectal itching x 4days. has had problem in past and cream rx'd SECTION 1: REQUESTED ACTION edvinw 08/31/07 at 11:21 am: MEDICATION REQUEST: Patient requests a refill. MEDICATIONS: TRIAMCINOLONE ACETONIDE EXTERNAL CREAME 0.1 %, apply bid, 30 Dispensed, status: NEW PRESCRIPTION, 04/16/2007, Comment: called to [phone]/ leticia. .....leticia DOCTOR`S RESPONSE: tangela 08/31/07 at 12:09 pm Refill now with [...] filedocumented in this encounter Care Teams Manager Administrative Services Relationship Specialty Start Date End Date Greg Arnold MD PCP - General Family Practice 11/04/23 02/17/24 documented as of this encounter
--- OUTSIDE RECORDS SUMMARY | 2025-04-04 14:35 | XMS_ITS | Encounter Summary ---
Author Organization [facility] Address 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
--- OUTSIDE RECORDS SUMMARY | 2025-04-04 14:35 | XMS_ITS | Encounter Summary ---
Author Organization [facility] Address 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 LAST VISIT: PCP: maria eugenia. ALTERNATIVE PHONE NUMBER: [phone] WHO CALLED: Patient called. CURRENT ALLERGY LIST: NO KNOWN ALLERGIES PHARMACY NUMBER: [phone] PROBLEMS: achy all over , tried ziacam, tylenol CONGESTION: Patient complains of sinus congestion, complains of chest congestion, complains of headcongestion. COUGH:Patient complains of cough. FEVER: . hot/cold HEADACHE: Patient complains of headache. off and on SORE THROAT: Patient complains of sore throat. tickle SECTION 1: REQUESTED ACTION [facility] 08/07/07 at 11:13 am: MEDICATION REQUEST: rx----az DOCTOR`S RESPONSE: tangela 08/07/07 at 11:50 am MEDICATIONS: Call in [...] on filedocumented in this encounter Care Teams General Doc Relationship Specialty Start Date End Date Greg Arnold MD PCP - General Family Practice 11/04/23 02/17/24 documented as of this encounter
--- OUTSIDE RECORDS SUMMARY | 2025-04-04 14:35 | XMS_ITS | Encounter Summary ---
Author Organization [facility] Address [address] [place] [address] Care Team Providers Care Pattern Scratcher Name Role Phone Greg Arnold MD Primary Care Provider Unavail le Encounter Details Date Type Department Care Team (Late st Contact Info) Description 04/16/2007 Orders Only [facility] Primary Care - [address] [address] Azam Falcon MD NO ADDRESS ON FILE Social History Tobacco Use Types Packs/Day Years Used Date Smoking Tobacco: Never Assessed Sex and Gender Information Value Date Recorded Sex Assigned at Not on file Legal Sex Male 5:12 AM COMMERCIAL CREDIT LEAD Gender Identity Not on file Sexual Orientation Not on file documented as of this encounter Progress Notes * Azam Falcon MD - 10/15/2007 6:45 PM CDT TIME:09:14 am PATIENT`S HOME PHONE: PATIENT`S WORK PHONE: PATIENT`S INSURANCE: [employer] WHO TOOK THE CALL: Leticia Calles W GENERAL INFORMATION PATIENT STATUS: Established Patient. LAST VISIT: 01-07-07 PCP: Ezekiel. ALTERNATIVE PHONE NUMBER: [phone] WHO CALLED: Patient called. CURRENT ALLERGY LIST: [...] Left Arm Sitting WEIGHT: 221lbs NURSE NAME: Brandon LillianaTommy ALLERGIES: No known drug allergies. TOBACCO USE [...] misses doses frequently. HISTORY OF PRESENT ILLNESS: eJnsen is seen acutely today. He has complaints [...] he is diabetic. 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 The nature of this was discussed with the patient. We talked about adjusting his footwear to protect the area. If he does not improve, he will see a insurance commissioner. RETURN VISIT : Patient instructed to return in 6 months. Electronically Signed by: Azam Falcon MD on Saturday, May 12, 2007 documented in this encounter Plan of Treatment Not on file documented as of this encounter Visit Diagnoses Not on filedocumented in this encounter Care Teams Pattern Scratcher Relationship Specialty Start Date End Date Greg Arnold MD PCP - General Family Practice 11/04/23 02/17/24 documented as of this encounter
--- OUTSIDE RECORDS SUMMARY | 2025-04-04 14:35 | XMS_ITS | Encounter Summary ---
Author Organization [facility] Address [address] [place] [address] Care Team Providers Care Missile Control Pilot Name Role Phone Greg Arnold MD Primary Care Provider Unavailab le Encounter Details Date Type Department Care Team (Latest Contact Info) Description 04/16/2007 Outpatient Historical [facility] Primary Care - [address] [place] [address] Azam Falcon MD NO ADDRESS ON FILE Other Abnormal Glucose (Primary Dx) Social History Tobacco Use Types Packs/Day Years Used Date Smoking Tobacco: Never Assessed Sex and Gender Information Value Date Recorded Sex Assigned at Not on file Legal Sex Male 5:12 AM EXPERIENCE SPECIALIST Gender Identity Not on file Sexual Orientation Not on file documented as of this encounter Plan of Treatment Not on file documented as of this encounter Procedures Procedure Name Priority Date/Time Associated Diagnosis Comments HEMOGLOBIN A1C Routine 04/16/2007 5:24 PM EXPERIENCE SPECIALIST GLUCOSE LEVEL Routine 04/16/2007 5:24 PM EXPERIENCE SPECIALIST documented in this encounter Results * HEMOGLOBIN A1C (04/16/2007 5:24 PM EXPERIENCE SPECIALIST) HEMOGLOBIN A1C 6.1 4.1 - 6.1 % of Hgb INTERFACE SYSTEM GLUCOSE, MEAN BLOOD 140 mg/dL INTERFACE SYSTEM 04/16/2007 5:24 PM EXPERIENCE SPECIALIST us Azam Falcon MD CHEMISTRY ORDERABLES Edited INTERFACE SYSTEM Refer to clinic/hospital department * GLUCOSE LEVEL (04/16/2007 5:24 PM EXPERIENCE SPECIALIST) GLUCOSE 86 65 - 99 mg/dL INTERFACE SYSTEM 04/16/2007 5:24 PM EXPERIENCE SPECIALIST us Azam Falcon MD CHEMISTRY ORDERABLES Edited INTERFACE SYSTEM Refer to clinic/hospital department documented in this encounter Visit Diagnoses Diagnosis Other abnormal glucose- Primary documented in this encounter Care Teams Missile Control Pilot Relationship Specialty Start Date End Date Greg Arnold MD PCP - General Family Practice 11/04/23 02/17/24 documented as of this encounter
--- OUTSIDE RECORDS SUMMARY | 2025-04-04 14:35 | XMS_ITS | Encounter Summary ---
Author Organization [facility] Address [address] [place] [address] Care Team Providers Care Rolled Glass Crosscutter Name Role Phone Greg Arnold MD Primary Care Provider Unavailab le Encounter Details Date Type Department Care Team (Late st Contact Info) Description 07/23/2007 Outpatient Historical [facility] Primary Care - [facility] [address] [place] [address] Estella Manning MD [address] [place] [address] Social History Tobacco Use Types Packs/Day Years Used Date Smoking Tobacco: Never Assessed Sex and Gender Information Value Date Recorded Sex Assigned at Not on file Legal Sex Male 5: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
== END 2025-04-04 13:17 | disposition home or self-care (01) ==
LOC: ANHLAB 13:20
PROVIDERS: PCP Nurse Practitioner Family; Visit Provider Nurse Practitioner Family
DX: R39.9 Unspecified symptoms and signs involving the genitourinary system (principal)
CPT/HCPCS: 81001

== ENCOUNTER 2025-04-14 14:56 | Emergency (ER) | payer MEDICARE, SELFPAY ==
--- NOTE | ~2025-04-14 | CT_ITS ---
EXAMINATION: CT brain wo polo, 04/14/2025 17:27 MANAGER RECRUITMENT HISTORY: altered mental status COMPARISON: No comparisons available. Technique: Axial images obtained of the brain without contrast. One or more of the following dose reduction techniques were used: automated exposure control, adjustment of the mA and/or kV according to patient size, use of iterative reconstruction technique. Findings: No acute infarct or parenchymal hemorrhage. No abnormal mass or mass effect. No midline shift. No extra-axial fluid collections. No hydrocephalus. Mastoid air cells unremarkable. Sinuses and orbits unremarkable. No acute fracture. No significant facial or scalp soft tissue swelling evident. No radiopaque foreign body is seen. Impression: 1.No acute intracranial abnormality. Reviewed, dictated and finalized at location P. GER RECRUITMENT Impression: 1.No acute intracranial abnormality.
--- NOTE | ~2025-04-14 | XR_ITS ---
EXAMINATION: XR chest 2V, 04/14/2025 17:23 BROADCAST MAINTENANCE TECHNICIAN HISTORY: AMS COMPARISON: No comparisons available. Technique: 2 views obtained. Findings: The lungs are clear, no effusion. No pneumothorax. Heart is normal size. Mediastinal and hilar contours are within normal limits. Bony thorax no acute abnormality. Impression: No acute cardiopulmonary abnormality. Reviewed, dictated and finalized at location P. DCAST MAINTENANCE TECHNICIAN Impression: No acute cardiopulmonary abnormality.
--- OUTSIDE RECORDS SUMMARY | 2025-04-14 15:02 | XMS_ITS | Encounter Summary ---
Author Organization [facility] Address 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
--- OUTSIDE RECORDS SUMMARY | 2025-04-14 15:02 | XMS_ITS | Encounter Summary ---
Author Organization [facility] Address 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
--- OUTSIDE RECORDS SUMMARY | 2025-04-14 15:02 | XMS_ITS | Encounter Summary ---
Author Organization [facility] Address 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
--- OUTSIDE RECORDS SUMMARY | 2025-04-14 15:02 | XMS_ITS | Encounter Summary ---
Author Organization [facility] Address 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 Gender Identity Not on file Sexual Orientation Not on file documented as of this encounter Last Filed Vital Signs Vital Sign Reading Time Taken Comments Blood Pressure 148/80 08/05/2005 3:00 PM NEIGHBORHOOD COORDINATOR Pulse - - Temperature 36.6 C (97.9 F) 08/05/2005 3:00 PM NEIGHBORHOOD COORDINATOR Respiratory Rate - - Oxygen Saturation - - Inhaled Oxygen Concentration - - Weight 100.2 kg (221 lb) 08/05/2005 3:00 PM NEIGHBORHOOD COORDINATOR Height - - Body Mass Index - - documented in this encounter Plan of Treatment Not on file documented as of this encounter Visit Diagnoses Not on filedocumented in this encounter Care Teams Legal Archivist Relationship Specialty Start Date End Date Greg Arnold MD PCP - General Family Practice 11/04/23 02/17/24 documented as of this encounter
--- OUTSIDE RECORDS SUMMARY | 2025-04-14 15:02 | XMS_ITS | Encounter Summary ---
Author Organization [facility] Address 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
--- OUTSIDE RECORDS SUMMARY | 2025-04-14 15:02 | XMS_ITS | Encounter Summary ---
Author Organization [facility] Address 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
--- OUTSIDE RECORDS SUMMARY | 2025-04-14 15:02 | XMS_ITS | Clinical Summary ---
Author Organization [facility] Address [address] [place] [address] Care Team Providers Care Community Resource Officer Name Role Phone Unavailable Primary Care Provider [...] daily daily DX code E11.9 100 Each 11 3 Active Additional Information Patient not taking.Reported [...] Strip Test once daily DX code E11.9 [facility] 2773478836 100 Strip 11 4 Active Active Problems [...] other complication 10/02/2007 01/17/2011 Unspecified nongonococcal urethritis ([facility]) 09/11/2007 03/02/2009 Abdominal pain, right lower quadrant [...] Months Immunizations Immunization Administration Dates Next Due ([employer]) COVID-19 VACCINE - EMERGENCY USE AUTHORIZATION, AD26,COV2S(PF) [...] than three times a week 09/27/2020 Attends [employer] Not on file 09/27 Do you belong to any clubs o r organizations such as latter day groups, unions, fraternal or athletic groups, or [...] on file Legal Sex Male 5:12 AM SLEEVE SETTER LOCKSTITCH Gender Identity Not on file Sexual Orientation [...] series) 2027 Medical Devices Implanted Type Area Chain Mortiser Operator Device Identifier Shelf Expiration Date Model / Serial / Lot Clip Endo Resolution 360 235cm [id number] - [id number] Implanted:Qty: 1 on 02/03/2024 by Maksim Garcia MD at [facility] Clip N/A: [employer] [id number] 09/19/2026 [id number] / / [id number] Procedures Procedure Name Priority Date/Time Associated Diagnosis Comments COLONOSCOPY REPORT 02/03/2024 11 :04 AM CDT LIPID PANEL Routine 03/07/2023 11:19 AM CDT Type 2 diabetes mellitus without complication, without long-term current use of insulin ([facility]) HEMOGLOBIN A1C Routine 03/07/2023 11:19 AM CDT Type 2 diabetes mellitus without complication, without long-term current use of insulin ([facility]) MICROALBUMIN/CREATIN INE RATIO, RANDOM UR Routine 06/04/2021 11:44 AM SLEEVE SETTER LOCKSTITCH HM DIABETES EYE EXAM Routine 01/23/2021 from Last 3 Months or Most Recently Relevant to Health Maintenance Results * COLONOSCOPY REPORT (02/03/2024 11:04 AM CDT) Narrative Procedure Note Maksim Garcia MD - 02/03/2024 11:04 AM CDT [facility] Endoscopy Patient Name: Charles Purcell Procedure [...] signed electronically. Number of Addenda: [phone] [facility]; [place] [address] Maksim Garcia MD GI PROCEDURE ORDERABL ES Final Result * (ABNORMAL) HEMOGLOBIN A1C (03/07/2023 11:19 AM CDT) HEMOGLOBIN A1C 6.8(H) <5.7 % of total Hgb [employer] Comment: For someone without known diabetes, [...] children. ESTIMATED AVERAGE GLUCOSE (MG/DL) 148 mg/dL [facility]rystian Barry ESTIMATED AVERAGE GLUCOSE (MMOL/L) 8.2 mmol/L Narcisa Barry Comment: FASTING:YES FASTING: YES Test Performed at: [facility] [address] [place] [address] Cuco Haque Blood 03/07/2023 11:1 9 AM CDT 03/07/2023 11:19 AM CDT us Azam Falcon MD CHEMISTRY ORDERABLES Final Re sult [facility] [phone] [facility] [address] [place] [address] * LIPID PANEL (03/07/2023 11:19 AM CDT) CHOLESTEROL 131 <200 mg/dL [facility] Papa Barry HDL 58 > OR = 40 mg/dL Narcisa Barry TRIGLYCERIDE 126 <150 mg/dL [facility] LDL CALCULATED 52 mg/dL (calc) Narcisa [facility]ryst[facility] Barry Comment: Reference range: <100 Desirable range <100 mg/dL for primary prevention; <70 mg/dL for patients with CHD or diabetic patients with > or = 2 CHD risk factors. LDL-C is now calculated using the Godwin-Beckie calculation, which is a validated novel method providing better accuracy than the Friedewald equation in the estimation of LDL-C. Godwin MORTON et al. TATUM. 2013;310(19): 6725-1028 (http://education.Jike Xueyuan.[employer] Networks/faq/JWE268) CHOL/HDL RATIO 2.3 <5.0 (calc) Narcisa Barry TOTAL NON-HDL CHOL(LDL+VLDL) 73 <130 mg/dL (calc) Narcisa Barry Comment: For patients with diabetes plus 1 major ASCVD risk factor, treating to a non-HDL-C goal of <100 mg/dL (LDL-C of <70 mg/dL) is considered a therapeutic option. FASTING:YES FASTING: YES Test Performed at: [place] [address] [place] [address] Cuco Barragan Vo Blood 03/07/2023 11:1 9 AM CDT 03/07/2023 11:19 AM CDT Azam Falcon MD CHEMISTRY ORDERABLES Final Re sult Performing Organization Address [facility]/ZIP Code Phone Number [facility] [phone] [facility] [address] [place] [address] * MICROALBUMIN/CREATININE RATIO, RANDOM UR (06/04/2021 11:44 AM SLEEVE SETTER LOCKSTITCH) Creatinine, Urine 62 20 - 320 mg/dL [facility] MICROALBUMIN, URINE 1.0 See Note: mg/dL [facility] Comment: Reference Range: Reference Range Not established MICROALBUMIN/CREAT RATIO, UR 16 <30 mcg/mg creat [facility] Comment: The ADA defines abnormalities in albumin excretion as follows: Albuminuria Category Result (mcg/mg creatinine) Normal to Mildly increased <30 Moderately increased 30-299 Severely increased > OR = 300 The ADA recommends that at least two of three specimens collected within a 3-6 month period be abnormal before considering a patient to be within a diagnostic category. Test Performed at: [facility] [address] [place] [address] Maksim Savage D.O., MPH 06/04/2021 11:4 4 AM SLEEVE SETTER LOCKSTITCH 06/04/2021 11:45 AM SLEEVE SETTER LOCKSTITCH Azam Falcon MD URINE ORDERABLES Final Result Performing Organization Address City/[facility]/ZIP Co de Phone Number [facility] [address] [place] [address] * DIABETES EYE EXAM (01/23/2021) Abstract Provider HEALTH MAINTENANCE Edited Resu lt - Final [facility]# [id number] [address] [place] [address] from Last 3 Months or Most Recently Relevant to Health Maintenance Insurance MEDICARE PART A AND B [employer] Advance Directives For more information, please contact: [phone] * Full Code (Latest Code Status on File) Date Activated Date Inactivated Comments 02/03/2024 9:34 AM 02/03/2024 1:43 PM * Full Code Date Activated Date Inactivated Comments 12/05/2022 11:21 AM 12/05/2022 3:25 PM * Full Code Date Activated Date Inactivated Comments 11/03/2018 8:20 AM 11/03/2018 11:58 AM
--- OUTSIDE RECORDS SUMMARY | 2025-04-14 15:02 | XMS_ITS | Encounter Summary ---
Author Organization [facility] Address [address] [place] [address] Care Team Providers Care Field Artillery Operations Man Name Role Phone Greg Arnold MD Primary Care Provider [phone] Encounter Details Date Type Department Care Team (Late st Contact Info) Description 11/07/[address] 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
--- OUTSIDE RECORDS SUMMARY | 2025-04-14 15:02 | XMS_ITS | Encounter Summary ---
Author Organization [facility] Address 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 LAST VISIT: 05/15/05 PCP: maria eugenia WHO CALLED: Pharmacy called. PHARMACY NUMBER: [phone] SECTION 1: REQUESTED ACTION maia 07/12/05 at 10:12 am: MEDICATION REQUEST: MEDICATION REQUEST: Patient requests a refill. MEDICATIONS: LISINOPRIL ORAL TABLET 40 MG, 1 Every Morning, 30 Dispensed, 5 Fills, 30 Duration/Days Supply, status: NEW PRESCRIPTION, 01/11/2005. Pharm asking for Lisinopril 20mg # 30 L/R 04/26 Ok to refill? /lashon need chart [facility]AL [facility] pm [facility] office/laney SECTION 2: RN/CARL RESPONSE: [facility]ardom 07/12/05 at 01:29 pm MEDICATIONS: LISINOPRIL ORAL TABLET 40 MG, 1 Every Morning, 30 Dispensed, 5 Fills, 30 Duration/Days Supply, status: DISCONTINUED, 07/12/2005. LISINOPRIL ORAL TABLET 20 MG, 1 Every Day, 30 Dispensed, 3 Fills, 30 Duration/Days Supply, status: NEW PRESCRIPTION, 07/12/2005. FINAL ACTION: [facility] 07/12/05 at 01:34 pm Called pharmacy at 07/12/05 at 01:34 pm. ritchie/laney Electronically Signed by: Laney Diaz on Tuesday, July 12, 2005 documented in this encounter Plan of Treatment Not on file documented as of this encounter Visit Diagnoses Not on filedocumented in this encounter Care Teams Lamp Decorator Relationship Specialty Start Date End Date Greg Arnold MD PCP - General Family Practice 11/04/23 02/17/24 documented as of this encounter
--- OUTSIDE RECORDS SUMMARY | 2025-04-14 15:03 | XMS_ITS | Encounter Summary ---
Author Organization [facility] Address 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
--- OUTSIDE RECORDS SUMMARY | 2025-04-14 15:03 | XMS_ITS | Encounter Summary ---
Author Organization [facility] Address 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 LAST VISIT: 01-07-07 PCP: Ezekiel. ALTERNATIVE PHONE NUMBER: [phone] WHO CALLED: Patient called. CURRENT ALLERGY LIST: [...] he is diabetic. 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 The nature of this was discussed with the patient. We talked about adjusting his footwear to protect the area. If he does not improve, he will see a appliance painter and refinisher. RETURN VISIT : Patient instructed to return in 6 months. Electronically Signed by: Azam Falcon MD on Saturday, May 12, 2007 documented in this encounter Plan of Treatment Not on file documented as of this encounter Visit Diagnoses Not on filedocumented in this encounter Care Teams Saw Edge Fuser Circular Relationship Specialty Start Date End Date Greg Arnold MD PCP - General Family Practice 11/04/23 02/17/24 documented as of this encounter
--- OUTSIDE RECORDS SUMMARY | 2025-04-14 15:03 | XMS_ITS | Encounter Summary ---
Author Organization [facility] Address 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
--- OUTSIDE RECORDS SUMMARY | 2025-04-14 15:03 | XMS_ITS | Encounter Summary ---
Author Organization [facility] Address 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 LAST VISIT: 07-23-07 PCP: Ezekiel. ALTERNATIVE PHONE NUMBER: [phone] WHO CALLED: Patient called. CURRENT ALLERGY LIST: NO KNOWN ALLERGIES PHARMACY NUMBER: [phone] PROBLEMS: rectal itching x 4days. has had problem in past and cream rx'd SECTION 1: REQUESTED ACTION frankw 08/31/07 at 11:21 am: MEDICATION REQUEST: Patient requests a refill. MEDICATIONS: TRIAMCINOLONE ACETONIDE EXTERNAL CREAME 0.1 %, apply bid, 30 Dispensed, status: NEW PRESCRIPTION, 04/16/2007, Comment: called to [phone]/ leticia. .....leticia DOCTOR`S RESPONSE: tangela 08/31/07 at [...] on filedocumented in this encounter Care Teams Multi Media Specialist Relationship Specialty Start Date End Date Greg Arnold MD PCP - General Family Practice 11/04/23 02/17/24 documented as of this encounter
--- OUTSIDE RECORDS SUMMARY | 2025-04-14 15:03 | XMS_ITS | Encounter Summary ---
Author Organization [facility] Address [address] [place] [address] Care Team Providers Care Associate Designer Name Role Phone Greg Arnold MD Primary Care Provider [phone] Encounter Details Date Type Department Care Team (Late st Contact Info) Description 11/19/2006 Orders Only [facility] Primary Care - [address] [place] [address] Azam Falcon MD NO ADDRESS ON FILE Social History Tobacco Use Types Packs/Day Years Used Date Smoking Tobacco: Never Assessed Sex and Gender Information Value Date Recorded Sex Assigned at Not on file Legal Sex Male 5:12 AM EVENT SET UP SPECIALIST Gender Identity Not on file Sexual Orientation Not on file documented as of this encounter Progress Notes * Azam Falcon MD - 10/21/2007 5:02 PM CDT TIME:10:59 am PATIENT`S HOME PHONE: PATIENT`S WORK PHONE: PATIENT`S INSURANCE: [employer] WHO TOOK THE CALL: Selam Calles W GENERAL INFORMATION PATIENT STATUS: Established Patient. LAST VISIT: 11-07-06 PCP: Ezekiel. ALTERNATIVE PHONE NUMBER: [phone] WHO CALLED: Patient called. CURRENT ALLERGY LIST: NO KNOWN ALLERGIES PHARMACY NUMBER: will get PROBLEMS: using cream on anus area rash no better. still itches. SECTION 1: REQUESTED ACTION frankw 11/19/06 at 11:01 am: MEDICATION REQUEST: NEXT STEP: Patient is no better and wants to know the next step. .........rosalinda DOCTOR`S RESPONSE: conwpg 11/19/06 at 12:17 pm new cream MEDICATIONS: [...] on filedocumented in this encounter Care Teams Associate Designer Relationship Specialty Start Date End Date Greg Arnold MD PCP - General Family Practice 11/04/23 02/17/24 documented as of this encounter
--- OUTSIDE RECORDS SUMMARY | 2025-04-14 15:03 | XMS_ITS | Encounter Summary ---
Author Organization [facility] Address [address] [place] [address] Care Team Providers Care C4 Planner Name Role Phone Greg Arnold MD Primary Care Provider [phone] Encounter Details Date Type Department Care Team (Late st Contact Info) Description 09/11/2007 Outpatient Historical [facility] Primary Care - [address] [place] [address] Azam Falcon MD NO ADDRESS ON FILE Social History Tobacco Use Types Packs/Day Years Used Date Smoking Tobacco: Never Assessed Sex and Gender Information Value Date Recorded Sex Assigned at Not on file Legal Sex Male 5:12 AM HEALTH CARE RECRUITER Gender Identity Not on file Sexual Orientation Not on file documented as of this encounter Plan of Treatment Not on file documented as of this encounter Visit Diagnoses Not on filedocumented in this encounter Care Teams C4 Planner Relationship Specialty Start Date End Date Greg Arnold MD PCP - General Family Practice 11/04/23 02/17/24 documented as of this encounter
--- OUTSIDE RECORDS SUMMARY | 2025-04-14 15:03 | XMS_ITS | Encounter Summary ---
Author Organization [facility] Address [address] [place] [address] Care Team Providers Care Children Counselor Name Role Phone Greg Arnold MD Primary Care Provider [phone] Encounter Details Date Type Department Care Team (Late st Contact Info) Description 11/14/2003 Outpatient Historical [facility] Sathish Pimentel MD NO ADDRESS ON FILE SCREENING MAL NEOP-COLON (Primary Dx) Social History Tobacco Use Types Packs/Day Years Used Date Smoking Tobacco: Never Assessed Sex and Gender Information Value Date Recorded Sex Assigned at Not on file Legal Sex Male 5:12 AM HISTOLOGY TECH Gender Identity Not on file Sexual Orientation Not on file documented as of this encounter Plan of Treatment Not on file documented as of this encounter Visit Diagnoses Diagnosis Special screening for malignant neoplasms, colon- Primary documented in this encounter Care Teams Children Counselor Relationship Specialty Start Date End Date Greg Arnold MD PCP - General Family Practice 11/04/23 02/17/24 documented as of this encounter
--- OUTSIDE RECORDS SUMMARY | 2025-04-14 15:03 | XMS_ITS | Encounter Summary ---
Author Organization [facility] Address 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
--- OUTSIDE RECORDS SUMMARY | 2025-04-14 15:03 | XMS_ITS | Encounter Summary ---
Author Organization [facility] Address [address] [place] [address] Care Team Providers Care Shading Painter Name Role Phone Greg Arnold MD Primary Care Provider [phone] Encounter Details Date Type Department Care Team (Latest Contact Info) Description 08/21/1999 Outpatient Historical [facility] Azam Falcon MD NO ADDRESS ON FILE Fam hx-cardiovas dis NEC (Primary Dx) Social History Tobacco Use Types Packs/Day Years Used Date Smoking Tobacco: Never Assessed Sex and Gender Information Value Date Recorded Sex Assigned at Not on file Legal Sex Male 5:12 AM SODA CLERK Gender Identity Not on file Sexual Orientation Not on file documented as of this encounter Plan of Treatment Not on file documented as of this encounter Visit Diagnoses Diagnosis Fam hx-cardiovas dis NEC- Primary Family history of other cardiovascular diseases documented in this encounter Care Teams Shading Painter Relationship Specialty Start Date End Date Greg Arnold MD PCP - General Family Practice 11/04/23 02/17/24 documented as of this encounter
--- OUTSIDE RECORDS SUMMARY | 2025-04-14 15:03 | XMS_ITS | Encounter Summary ---
Author Organization [facility] Address [address] [place] [address] Care Team Providers Care Erecting Engineer Name Role Phone Greg Arnold MD Primary Care Provider [phone] Encounter Details Date Type Department Care Team (Late st Contact Info) Description 01/07/2007 Orders Only [facility] Primary Care - [address] [place] [address] Azam Falcon MD NO ADDRESS ON FILE Social History Tobacco Use Types Packs/Day Years Used Date Smoking Tobacco: Never Assessed Sex and Gender Information Value Date Recorded Sex Assigned at Not on file Legal Sex Male 5:12 AM GALLEY STRIPPER Gender Identity Not on file Sexual Orientation [...] He requested treatment LAB ORDERS: Order number: [id number] Test Ordered: DESTRUCTION BENIGN LESIONS TO 14 31174 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 Advised treatment and additional testing. Advised of future risk of spread. MEDICATIONS: VALTREX ORAL TABLET 1 GM, 1 Two Times A Day, 20 Dispensed, status: NEW PRESCRIPTION, 01/07/2007. LAB ORDERS: Order number: [id number] Test Ordered: RPR 5100 Order number: [id number] Test Ordered: CHLAMYDIA/N. GONORRHOEAE, AMPLIFIED DNA 2081 Electronically Signed by: Azam Falcon MD on Sunday, January 14, 2007 documented in this encounter Plan of Treatment Not on file documented as of this encounter Visit Diagnoses Not on filedocumented in this encounter Care Teams Erecting Engineer Relationship Specialty Start Date End Date Greg Arnold MD PCP - General Family Practice 11/04/23 02/17/24 documented as of this encounter
--- OUTSIDE RECORDS SUMMARY | 2025-04-14 15:03 | XMS_ITS | Encounter Summary ---
Author Organization [facility] Address [address] [place] [address] Care Team Providers Care General Manager In Training Name Role Phone Greg Arnold MD Primary Care Provider [phone] Encounter Details Date Type Department Care Team (Late st Contact Info) Description 12/04/2001 Outpatient Historical [facility] Primary Care - [address] [place] [address] Azam Falcon MD NO ADDRESS ON FILE Social History Tobacco Use Types Packs/Day Years Used Date Smoking Tobacco: Never Assessed Sex and Gender Information Value Date Recorded Sex Assigned at Not on file Legal Sex Male 5:12 AM DEPENDENCY COUNSELOR Gender Identity Not on file Sexual Orientation Not on file documented as of this encounter Plan of Treatment Not on file documented as of this encounter Visit Diagnoses Not on filedocumented in this encounter Care Teams General Manager In Training Relationship Specialty Start Date End Date Greg Arnold MD PCP - General Family Practice 11/04/23 02/17/24 documented as of this encounter
--- OUTSIDE RECORDS SUMMARY | 2025-04-14 15:03 | XMS_ITS | Encounter Summary ---
Author Organization [facility] Address [address] [place] [address] Care Team Providers Care It Consulting Director Name Role Phone Greg Arnold MD Primary Care Provider [phone] Encounter Details Date Type Department Care Team (Late st Contact Info) Description 05/15/2005 Outpatient Historical [facility] Primary Care - [address] [place] [address] Azam Falcon MD NO ADDRESS ON FILE Social History Tobacco Use Types Packs/Day Years Used Date Smoking Tobacco: Never Assessed Sex and Gender Information Value Date Recorded Sex Assigned at Not on file Legal Sex Male 5:12 AM CARTRIDGE FEEDER Gender Identity Not on file Sexual Orientation Not on file documented as of this encounter Plan of Treatment Not on file documented as of this encounter Visit Diagnoses Not on filedocumented in this encounter Care Teams It Consulting Director Relationship Specialty Start Date End Date Greg Arnold MD PCP - General Family Practice 11/04/23 02/17/24 documented as of this encounter
--- OUTSIDE RECORDS SUMMARY | 2025-04-14 15:03 | XMS_ITS | Encounter Summary ---
Author Organization [facility] Address [address] [place] [address] Care Team Providers Care Paper Cone Grader Name Role Phone Greg Arnold MD Primary Care Provider [phone] Encounter Details Date Type Department Care Team (Late st Contact Info) Description 05/02/2000 Outpatient Historical [facility] Primary Care - [address] [place] [address] Azam Falcon MD NO ADDRESS ON FILE Social History Tobacco Use Types Packs/Day Years Used Date Smoking Tobacco: Never Assessed Sex and Gender Information Value Date Recorded Sex Assigned at Not on file Legal Sex Male 5:12 AM OUTSIDE PARTS SALES Gender Identity Not on file Sexual Orientation Not on file documented as of this encounter Plan of Treatment Not on file documented as of this encounter Visit Diagnoses Not on filedocumented in this encounter Care Teams Paper Cone Grader Relationship Specialty Start Date End Date Greg Arnold MD PCP - General Family Practice 11/04/23 02/17/24 documented as of this encounter
--- OUTSIDE RECORDS SUMMARY | 2025-04-14 15:03 | XMS_ITS | Encounter Summary ---
Author Organization [facility] Address 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
--- OUTSIDE RECORDS SUMMARY | 2025-04-14 15:03 | XMS_ITS | Encounter Summary ---
Author Organization [facility] Address [address] [place] [address] Care Team Providers Care Lap Cutter Name Role Phone Greg Arnold MD Primary Care Provider [phone] Encounter Details Date Type Department Care Team (Late st Contact Info) Description 12/23/2006 Orders Only [facility] Primary Care - [address] [place] [address] Azam Falcon MD NO ADDRESS ON FILE Social History Tobacco Use Types Packs/Day Years Used Date Smoking Tobacco: Never Assessed Sex and Gender Information Value Date Recorded Sex Assigned at Not on file Legal Sex Male 5:12 AM BRAND REPRESENTATIVE Gender Identity Not on file Sexual Orientation Not on file documented as of this encounter Progress Notes * Azam Falcon MD - 10/21/2007 12:27 PM CDT TIME:10:25 am PATIENT`S HOME PHONE: PATIENT`S WORK PHONE: PATIENT`S INSURANCE: [employer] WHO TOOK THE CALL: Thalia Garcia M GENERAL INFORMATION PATIENT STATUS: Established Patient. PCP: pc. [facility] PHONE NUMBER: [phone] WHO CALLED: Patient called. PHARMACY NUMBER: [phone] SECTION 1: REQUESTED ACTION [email or web address] 12/23/06 at [...] on filedocumented in this encounter Care Teams Lap Cutter Relationship Specialty Start Date End Date Greg Arnold MD PCP - General Family Practice 11/04/23 02/17/24 documented as of this encounter
--- OUTSIDE RECORDS SUMMARY | 2025-04-14 15:03 | XMS_ITS | Encounter Summary ---
Author Organization [facility] Address [address] [place] [address] Care Team Providers Care Websphere Commerce Consultant Name Role Phone Greg Arnold MD Primary Care Provider [phone] Encounter Details Date Type Department Care Team (Late st Contact Info) Description 10/11/2004 Outpatient Historical [facility] Primary Care - [address] [place] [address] Azam Falcon MD NO ADDRESS ON FILE Social History Tobacco Use Types Packs/Day Years Used Date Smoking Tobacco: Never Assessed Sex and Gender Information Value Date Recorded Sex Assigned at Not on file Legal Sex Male 5:12 AM PRODUCT ASSEMBLER Gender Identity Not on file Sexual Orientation Not on file documented as of this encounter Plan of Treatment Not on file documented as of this encounter Visit Diagnoses Not on filedocumented in this encounter Care Teams Websphere Commerce Consultant Relationship Specialty Start Date End Date Greg Arnold MD PCP - General Family Practice 11/04/23 02/17/24 documented as of this encounter
--- OUTSIDE RECORDS SUMMARY | 2025-04-14 15:03 | XMS_ITS | Encounter Summary ---
Author Organization [facility] Address [address] [place] [address] Care Team Providers Care Cartography Supervisor Name Role Phone Greg Arnold MD Primary Care Provider [phone] Encounter Details Date Type Department Care Team (Late st Contact Info) Description 10/19/2002 Outpatient Historical [facility] Primary Care - [address] [place] [address] Azam Falcon MD NO ADDRESS ON FILE Social History Tobacco Use Types Packs/Day Years Used Date Smoking Tobacco: Never Assessed Sex and Gender Information Value Date Recorded Sex Assigned at Not on file Legal Sex Male 5:12 AM ACCOUNTANT PROPERTY Gender Identity Not on file Sexual Orientation Not on file documented as of this encounter Plan of Treatment Not on file documented as of this encounter Visit Diagnoses Not on filedocumented in this encounter Care Teams Cartography Supervisor Relationship Specialty Start Date End Date Greg Arnold MD PCP - General Family Practice 11/04/23 02/17/24 documented as of this encounter
--- OUTSIDE RECORDS SUMMARY | 2025-04-14 15:03 | XMS_ITS | Encounter Summary ---
Author Organization [facility] Address [address] [place] [address] Care Team Providers Care Patient Observer Name Role Phone Greg Arnold MD Primary Care Provider [phone] Encounter Details Date Type Department Care Team (Late st Contact Info) Description 08/07/2007 Orders Only [facility] Primary Care - [address] [address] Azam Falcon MD NO ADDRESS ON FILE Social History Tobacco Use Types Packs/Day Years Used Date Smoking Tobacco: Never Assessed Sex and Gender Information Value Date Recorded Sex Assigned at Not on file Legal Sex Male 5:12 AM WEB DEVELOPMENT INSTRUCTOR Gender Identity Not on file Sexual Orientation Not on file documented as of this encounter Progress Notes * Azam Falcon MD - 11/05/2007 5:38 PM CDT TIME:11:10 am PATIENT`S HOME PHONE: PATIENT`S WORK PHONE: PATIENT`S INSURANCE: [employer] WHO TOOK THE CALL: Az Ma GENERAL INFORMATION PATIENT STATUS: Established Patient. LAST VISIT: PCP: maria eugenia. ALTERNATIVE PHONE NUMBER: [phone] WHO CALLED: Patient called. CURRENT ALLERGY LIST: NO KNOWN ALLERGIES PHARMACY NUMBER: [phone] PROBLEMS: achy all over , tried ziacam, tylenol CONGESTION: Patient complains of sinus congestion, complains of chest congestion, complains of headcongestion. COUGH:Patient complains of cough. FEVER: . hot/cold HEADACHE: Patient complains of headache. off and on SORE THROAT: Patient complains of sore throat. tickle SECTION 1: REQUESTED ACTION [email or web address] 08/07/07 at 11:13 am: MEDICATION REQUEST: rx----az [...] filedocumented in this encounter Care Teams Patient Observer Relationship Specialty Start Date End Date Greg Arnold MD PCP - General Family Practice 11/04/23 02/17/24 documented as of this encounter
--- OUTSIDE RECORDS SUMMARY | 2025-04-14 15:03 | XMS_ITS | Encounter Summary ---
Author Organization [facility] Address [address] [place] [address] Care Team Providers Care It Network Administrator Name Role Phone Greg Arnold MD Primary Care Provider [phone] Encounter Details Date Type Department Care Team (Late st Contact Info) Description 10/05/2007 Orders Only [facility] Primary Care - [address] [place] [address] Azam Falcon MD NO ADDRESS ON FILE Social History Tobacco Use Types Packs/Day Years Used Date Smoking Tobacco: Never Assessed Sex and Gender Information Value Date Recorded Sex Assigned at Not on file Legal Sex Male 5:12 AM PHOTO STUDIO ASSISTANT Gender Identity Not on file Sexual Orientation Not on file documented as of this encounter Plan of Treatment Not on file documented as of this encounter Visit Diagnoses Not on filedocumented in this encounter Care Teams It Network Administrator Relationship Specialty Start Date End Date Greg Arnold MD PCP - General Family Practice 11/04/23 02/17/24 documented as of this encounter
--- OUTSIDE RECORDS SUMMARY | 2025-04-14 15:03 | XMS_ITS | Encounter Summary ---
Author Organization [facility] Address [address] [place] [address] Care Team Providers Care Supervisor Instant Potato Processing Name Role Phone Greg Arnold MD Primary Care Provider [phone] Encounter Details Date Type Department Care Team (Late st Contact Info) Description 09/11/2007 Outpatient Historical [facility] Primary Care - [address] [place] [address] Azam Falcon MD NO ADDRESS ON FILE Social History Tobacco Use Types Packs/Day Years Used Date Smoking Tobacco: Never Assessed Sex and Gender Information Value Date Recorded Sex Assigned at Not on file Legal Sex Male 5:12 AM MARKING STITCHER Gender Identity Not on file Sexual Orientation Not on file documented as of this encounter Plan of Treatment Not on file documented as of this encounter Visit Diagnoses Not on filedocumented in this encounter Care Teams Supervisor Instant Potato Processing Relationship Specialty Start Date End Date Greg Arnold MD PCP - General Family Practice 11/04/23 02/17/24 documented as of this encounter
--- OUTSIDE RECORDS SUMMARY | 2025-04-14 15:03 | XMS_ITS | Encounter Summary ---
Author Organization [facility] Address [address] [place] [address] Care Team Providers Care Gis Physical Scientist Name Role Phone Greg Arnold MD Primary Care Provider [phone] Encounter Details Date Type Department Care Team (Late st Contact Info) Description 12/04/[address] [facility] Primary Care - [address] [place] [address] Azam Falcon MD NO ADDRESS ON FILE Social History Tobacco Use Types Packs/Day Years Used Date Smoking Tobacco: Never Assessed Sex and Gender Information Value Date Recorded Sex Assigned at Not on file Legal Sex Male 5:12 AM MOVIE EDITOR Gender Identity Not on file Sexual Orientation Not on file documented as of this encounter Plan of Treatment Not on file documented as of this encounter Visit Diagnoses Not on filedocumented in this encounter Care Teams Gis Physical Scientist Relationship Specialty Start Date End Date Greg Arnold MD PCP - General Family Practice 11/04/23 02/17/24 documented as of this encounter
--- OUTSIDE RECORDS SUMMARY | 2025-04-14 15:03 | XMS_ITS | Encounter Summary ---
Author Organization [facility] Address 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
--- OUTSIDE RECORDS SUMMARY | 2025-04-14 15:03 | XMS_ITS | Encounter Summary ---
Author Organization [facility] Address [address] [place] [address] Care Team Providers Care Hose Tester Name Role Phone Greg Arnold MD Primary Care Provider [phone] Encounter Details Date Type Department Care Team (Late st Contact Info) Description 11/07/2006 Orders Only [facility] Primary Care - [address] [place] [address] Azam Falcon MD NO ADDRESS ON FILE Social History Tobacco Use Types Packs/Day Years Used Date Smoking Tobacco: Never Assessed Sex and Gender Information Value Date Recorded Sex Assigned at Not on file Legal Sex Male 5:12 AM FRAME MAKER Gender Identity Not on file Sexual Orientation Not on file documented as of this encounter Progress Notes * Azam Falcon MD - 10/21/2007 3:13 PM CDT TEMPERATURE: 97.6??f Oral WEIGHT: [id number] BLOOD PRESSURE: 140/90 Right Arm Sitting NURSE [...] BENIGN Well controlled. LAB ORDERS: Order number: [id number] Test Ordered: BASIC METABOLIC PANEL & GFR 1607 V70.0-ROUTINE GENERAL MEDICAL EXAMINATION He needs weight reduction and a greater level of exercise. This was discussed. Routine screening was discussed. He is up-to-date with a colonoscopy 3 years ago with negative findings and with his family history a 10 year follow-up would be recommended at this time. LAB ORDERS: Order number: [id number] Test Ordered: LIPID PANEL 1078 V76.44-SCREEN FOR CA OF PROSTATE Check PSA. LAB ORDERS: Order number: [id number] Test Ordered: PSA, TOTAL 1002 078.19-WART Lesions were treated with liquid nitrogen on the extremities and trunk. LAB ORDERS: Order number: [id number] Test Ordered: DESTRUCTION BENIGN LESIONS TO 14 [id number] Electronically Signed by: Azam Falcon MD on Sunday, November 12, 2006 documented in this encounter Plan of Treatment Not on file documented as of this encounter Visit Diagnoses Not on filedocumented in this encounter Care Teams Hose Tester Relationship Specialty Start Date End Date Greg Arnold MD PCP - General Family Practice 11/04/23 02/17/24 documented as of this encounter
--- OUTSIDE RECORDS SUMMARY | 2025-04-14 15:03 | XMS_ITS | Encounter Summary ---
Author Organization [facility] Address [address] [place] [address] Care Team Providers Care Transit Authority Police Officer Name Role Phone Greg Arnold MD Primary Care Provider [phone] Encounter Details Date Type Department Care Team (Late st Contact Info) Description 10/11/2004 Outpatient Historical [facility] Primary Care - [address] [place] [address] Azam Falcon MD NO ADDRESS ON FILE Social History Tobacco Use Types Packs/Day Years Used Date Smoking Tobacco: Never Assessed Sex and Gender Information Value Date Recorded Sex Assigned at Not on file Legal Sex Male 5:12 AM RETAIL SHIFT SUPERVISOR Gender Identity Not on file Sexual Orientation Not on file documented as of this encounter Plan of Treatment Not on file documented as of this encounter Visit Diagnoses Not on filedocumented in this encounter Care Teams Transit Authority Police Officer Relationship Specialty Start Date End Date Greg Arnold MD PCP - General Family Practice 11/04/23 02/17/24 documented as of this encounter
--- OUTSIDE RECORDS SUMMARY | 2025-04-14 15:03 | XMS_ITS | Encounter Summary ---
Author Organization [facility] Address [address] [place] [address] Care Team Providers Care Coffee Weigher Name Role Phone Greg Arnold MD Primary Care Provider [phone] Encounter Details Date Type Department Care Team (Late st Contact Info) Description 10/16/2007 Orders Only [facility] Primary Care - [address] [place] [address] Azam Falcon MD NO ADDRESS ON FILE Social History Tobacco Use Types Packs/Day Years Used Date Smoking Tobacco: Never Assessed Sex and Gender Information Value Date Recorded Sex Assigned at Not on file Legal Sex Male 5:12 AM STEREOPTIC PROJECTION TOPOGRAPHER Gender Identity Not on file Sexual Orientation Not on file documented as of this encounter Plan of Treatment Not on file documented as of this encounter Visit Diagnoses Not on filedocumented in this encounter Care Teams Coffee Weigher Relationship Specialty Start Date End Date Greg Arnold MD PCP - General Family Practice 11/04/23 02/17/24 documented as of this encounter
--- OUTSIDE RECORDS SUMMARY | 2025-04-14 15:03 | XMS_ITS | Encounter Summary ---
Author Organization [facility] Address [address] [place] [address] Care Team Providers Care Deputy Coroner Investigator Name Role Phone Greg Arnold MD Primary Care Provider [phone] Encounter Details Date Type Department Care Team (Late st Contact Info) Description 01/27/2001 Outpatient Historical [facility] Jaswinder Conrad MD [address] [facility] [address] Deviated nasal septum (Primary Dx) Social History Tobacco Use Types Packs/Day Years Used Date Smoking Tobacco: Never Assessed Sex and Gender Information Value Date Recorded Sex Assigned at Not on file Legal Sex Male 5:12 AM POOL NURSE Gender Identity Not on file Sexual Orientation Not on file documented as of this encounter Plan of Treatment Not on file documented as of this encounter Visit Diagnoses Diagnosis Deviated nasal septum- Primary documented in this encounter Care Teams Deputy Coroner Investigator Relationship Specialty Start Date End Date Greg Arnold MD PCP - General Family Practice 11/04/23 02/17/24 documented as of this encounter
--- OUTSIDE RECORDS SUMMARY | 2025-04-14 15:03 | XMS_ITS | Encounter Summary ---
Author Organization [facility] Address [address] [place] [address] Care Team Providers Care Hardboard Panel Printer Name Role Phone Greg Arnold MD Primary Care Provider [phone] Encounter Details Date Type Department Care Team (Late st Contact Info) Description 10/11/2003 Outpatient Historical [facility] Primary Care - [address] [place] [address] Azam Falcon MD NO ADDRESS ON FILE Social History Tobacco Use Types Packs/Day Years Used Date Smoking Tobacco: Never Assessed Sex and Gender Information Value Date Recorded Sex Assigned at Not on file Legal Sex Male 5:12 AM ADMISSIONS ADVISOR Gender Identity Not on file Sexual Orientation Not on file documented as of this encounter Plan of Treatment Not on file documented as of this encounter Visit Diagnoses Not on filedocumented in this encounter Care Teams Hardboard Panel Printer Relationship Specialty Start Date End Date Greg Arnold MD PCP - General Family Practice 11/04/23 02/17/24 documented as of this encounter
--- OUTSIDE RECORDS SUMMARY | 2025-04-14 15:03 | XMS_ITS | Encounter Summary ---
Author Organization [facility] Address [address] [place] [address] Care Team Providers Care Graduate Fellow Name Role Phone Greg Arnold MD Primary Care Provider [phone] Encounter Details Date Type Department Care Team (Late st Contact Info) Description 09/10/[address] [facility] Primary Care - [address] [place] [address] Azam Falcon MD NO ADDRESS ON FILE Social History Tobacco Use Types Packs/Day Years Used Date Smoking Tobacco: Never Assessed Sex and Gender Information Value Date Recorded Sex Assigned at Not on file Legal Sex Male 5:12 AM ALL PURPOSE CLERK Gender Identity Not on file Sexual Orientation Not on file documented as of this encounter Plan of Treatment Not on file documented as of this encounter Visit Diagnoses Not on filedocumented in this encounter Care Teams Graduate Fellow Relationship Specialty Start Date End Date Greg Arnold MD PCP - General Family Practice 11/04/23 02/17/24 documented as of this encounter
--- OUTSIDE RECORDS SUMMARY | 2025-04-14 15:03 | XMS_ITS | Encounter Summary ---
Author Organization [facility] Address 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
--- OUTSIDE RECORDS SUMMARY | 2025-04-14 15:03 | XMS_ITS | Encounter Summary ---
Author Organization [facility] Address [address] [place] [address] Care Team Providers Care Loading Dock Helper Name Role Phone Greg Arnold MD Primary Care Provider [phone] Encounter Details Date Type Department Care Team (Late st Contact Info) Description 10/02/2007 Orders Only [facility] Primary Care - [address] [place] [address] Azam Falcon MD NO ADDRESS ON FILE Social History Tobacco Use Types Packs/Day Years Used Date Smoking Tobacco: Never Assessed Sex and Gender Information Value Date Recorded Sex Assigned at Not on file Legal Sex Male 5:12 AM CASH PROCESSING SPECIALIST Gender Identity Not on file Sexual Orientation Not on file documented as of this encounter Plan of Treatment Not on file documented as of this encounter Visit Diagnoses Not on filedocumented in this encounter Care Teams Loading Dock Helper Relationship Specialty Start Date End Date Greg Arnold MD PCP - General Family Practice 11/04/23 02/17/24 documented as of this encounter
--- OUTSIDE RECORDS SUMMARY | 2025-04-14 15:03 | XMS_ITS | Encounter Summary ---
Author Organization [facility] Address [address] [place] [address] Care Team Providers Care Heel Edge Inker Machine Name Role Phone Greg Arnold MD Primary Care Provider [phone] Encounter Details Date Type Department Care Team (Late st Contact Info) Description 07/06/2007 Outpatient Historical [facility] Primary Care - [address] [place] [address] Azam Falcon MD NO ADDRESS ON FILE Social History Tobacco Use Types Packs/Day Years Used Date Smoking Tobacco: Never Assessed Sex and Gender Information Value Date Recorded Sex Assigned at Not on file Legal Sex Male 5:12 AM DIGITAL IMAGER Gender Identity Not on file Sexual Orientation Not on file documented as of this encounter Plan of Treatment Not on file documented as of this encounter Visit Diagnoses Not on filedocumented in this encounter Care Teams Heel Edge Inker Machine Relationship Specialty Start Date End Date Greg Arnold MD PCP - General Family Practice 11/04/23 02/17/24 documented as of this encounter
--- OUTSIDE RECORDS SUMMARY | 2025-04-14 15:03 | XMS_ITS | Encounter Summary ---
Author Organization [facility] Address [address] [place] [address] Care Team Providers Care Department Store General Manager Name Role Phone Greg Arnold MD Primary Care Provider [phone] Encounter Details Date Type Department Care Team (Late st Contact Info) Description 04/16/2007 Outpatient Historical [facility] Primary Care - [address] [place] [address] Azam Falcon MD NO ADDRESS ON FILE Social History Tobacco Use Types Packs/Day Years Used Date Smoking Tobacco: Never Assessed Sex and Gender Information Value Date Recorded Sex Assigned at Not on file Legal Sex Male 5:[address]FFIC CONTROL TECHNICIAN Gender Identity Not on file Sexual Orientation Not on file documented as of this encounter Plan of Treatment Not on file documented as of this encounter Visit Diagnoses Not on filedocumented in this encounter Care Teams Department Store General Manager Relationship Specialty Start Date End Date Greg Arnold MD PCP - General Family Practice 11/04/23 02/17/24 documented as of this encounter
--- OUTSIDE RECORDS SUMMARY | 2025-04-14 15:03 | XMS_ITS | Encounter Summary ---
Author Organization [facility] Address [address] [place] [address] Care Team Providers Care Sewer Digger Name Role Phone Greg Arnold MD Primary Care Provider [phone] Encounter Details Date Type Department Care Team (Late st Contact Info) Description 05/15/[address] [facility] Primary Care - [address] [place] [address] Azam Falcon MD NO ADDRESS ON FILE Social History Tobacco Use Types Packs/Day Years Used Date Smoking Tobacco: Never Assessed Sex and Gender Information Value Date Recorded Sex Assigned at Not on file Legal Sex Male 5:12 AM MEDICAL RECORD SPECIALIST Gender Identity Not on file Sexual Orientation Not on file documented as of this encounter Plan of Treatment Not on file documented as of this encounter Visit Diagnoses Not on filedocumented in this encounter Care Teams Sewer Digger Relationship Specialty Start Date End Date Greg Arnold MD PCP - General Family Practice 11/04/23 02/17/24 documented as of this encounter
--- OUTSIDE RECORDS SUMMARY | 2025-04-14 15:03 | XMS_ITS | Encounter Summary ---
Author Organization [facility] Address [address] [place] [address] Care Team Providers Care Data Processing Specialist Name Role Phone Greg Arnold MD Primary Care Provider [phone] Encounter Details Date Type Department Care Team (Late st Contact Info) Description 01/02/2001 Outpatient Historical [facility] Primary Care - [address] [place] [address] Azam Falcon MD NO ADDRESS ON FILE Social History Tobacco Use Types Packs/Day Years Used Date Smoking Tobacco: Never Assessed Sex and Gender Information Value Date Recorded Sex Assigned at Not on file Legal Sex Male 5:12 AM CONCRETER Gender Identity Not on file Sexual Orientation Not on file documented as of this encounter Plan of Treatment Not on file documented as of this encounter Visit Diagnoses Not on filedocumented in this encounter Care Teams Data Processing Specialist Relationship Specialty Start Date End Date Greg Arnold MD PCP - General Family Practice 11/04/23 02/17/24 documented as of this encounter
--- OUTSIDE RECORDS SUMMARY | 2025-04-14 15:03 | XMS_ITS | Encounter Summary ---
Author Organization [facility] Address [address] [place] [address] Care Team Providers Care Straightener Gun Parts Name Role Phone Greg Arnold MD Primary Care Provider [phone] Encounter Details Date Type Department Care Team (Late st Contact Info) Description 01/07/2007 Outpatient Historical [facility] Primary Care - [address] [place] [address] Azam Falcon MD NO ADDRESS ON FILE Social History Tobacco Use Types Packs/Day Years Used Date Smoking Tobacco: Never Assessed Sex and Gender Information Value Date Recorded Sex Assigned at Not on file Legal Sex Male 5:12 AM 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
--- OUTSIDE RECORDS SUMMARY | 2025-04-14 15:03 | XMS_ITS | Encounter Summary ---
Author Organization [facility] Address [address] [place] [address] Care Team Providers Care Dairy Farm Worker Name Role Phone Greg Arnold MD Primary Care Provider [phone] Encounter Details Date Type Department Care Team (Late st Contact Info) Description 01/11/[address] [facility] Primary Care - [address] [place] [address] Azam Falcon MD NO ADDRESS ON FILE Social History Tobacco Use Types Packs/Day Years Used Date Smoking Tobacco: Never Assessed Sex and Gender Information Value Date Recorded Sex Assigned at Not on file Legal Sex Male 5:12 AM FINE UNHAIRER Gender Identity Not on file Sexual Orientation [...] on filedocumented in this encounter Care Teams Dairy Farm Worker Relationship Specialty Start Date End Date Greg Arnold MD PCP - General Family Practice 11/04/23 02/17/24 documented as of this encounter
--- OUTSIDE RECORDS SUMMARY | 2025-04-14 15:03 | XMS_ITS | Encounter Summary ---
Author Organization [facility] Address [address] [place] [address] Care Team Providers Care Forester Silviculture Name Role Phone Greg Arnold MD Primary Care Provider [phone] Encounter Details Date Type Department Care Team (Late st Contact Info) Description 10/14/2007 Orders Only [facility] Primary Care - [address] [place] [address] Azam Falcon MD NO ADDRESS ON FILE Social History Tobacco Use Types Packs/Day Years Used Date Smoking Tobacco: Never Assessed Sex and Gender Information Value Date Recorded Sex Assigned at Not on file Legal Sex Male 5:12 AM DIRECTOR VETERINARY Gender Identity Not on file Sexual Orientation Not on file documented as of this encounter Plan of Treatment Not on file documented as of this encounter Visit Diagnoses Not on filedocumented in this encounter Care Teams Forester Silviculture Relationship Specialty Start Date End Date Greg Arnold MD PCP - General Family Practice 11/04/23 02/17/24 documented as of this encounter
--- OUTSIDE RECORDS SUMMARY | 2025-04-14 15:03 | XMS_ITS | Encounter Summary ---
Author Organization [facility] Address [address] [place] [address] Care Team Providers Care Pottery Decoration Designer Name Role Phone Greg Arnold MD Primary Care Provider [phone] Encounter Details Date Type Department Care Team (Late st Contact Info) Description 04/01/2003 Outpatient Historical [facility] Primary Care - [address] [place] [address] Azam Falcon MD NO ADDRESS ON FILE Social History Tobacco Use Types Packs/Day Years Used Date Smoking Tobacco: Never Assessed Sex and Gender Information Value Date Recorded Sex Assigned at Not on file Legal Sex Male 5:12 AM HOUSE MOVING SUPERVISOR Gender Identity Not on file Sexual Orientation Not on file documented as of this encounter Plan of Treatment Not on file documented as of this encounter Visit Diagnoses Not on filedocumented in this encounter Care Teams Pottery Decoration Designer Relationship Specialty Start Date End Date Greg Arnold MD PCP - General Family Practice 11/04/23 02/17/24 documented as of this encounter
--- OUTSIDE RECORDS SUMMARY | 2025-04-14 15:03 | XMS_ITS | Encounter Summary ---
Author Organization [facility] Address 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
--- OUTSIDE RECORDS SUMMARY | 2025-04-14 15:03 | XMS_ITS | Encounter Summary ---
Author Organization [facility] Address [address] [place] [address] Care Team Providers Care Precision Machinist Name Role Phone Greg Arnold MD Primary Care Provider [phone] Encounter Details Date Type Department Care Team [...] on file Legal Sex Male 5:12 AM FORMULA WEIGHER Gender Identity Not on file Sexual Orientation [...] INTERFACE SYSTEM - 09/20/2008 2:08 PM CDT [facility] [address] [place] [address] [email or web address] Stress Study Patient: Charles Purcell MRN: Study ID: ADULT STRESS ECH Gender: Tavares : 1950 Age: 58 years Race: 1 Room: Bed: Height: Study Date: September 20, 2008 Patient status: Outpatient Weight: Access. #: [id number] POC: Ordering: Shasha Attending MD: Shasha Admitting [...] 14:05:46 Procedure Note Provider, Historical - 09/20/2008 [address] [place] [address] [email or web address] Stress Study Patient: Charles Purcell MRN: Study ID: ADULT STRESS ECH Gender: Tavares : 1950 Age: 58 years Race: 1 Room: Bed: Height: Study Date: September 20, 2008 Patient status: Outpatient Weight: Access. #: [id number] POC: Ordering: Shasha Attending MD: Shasha Admitting [...] Goss MD Confirmed September 20, 2008 14:05:46 Azam Falcon MD US ORDERABLES Final Result INTERFACE SYSTEM Refer to clinic/hospital department documented in this encounter Visit Diagnoses Diagnosis Preoperative examination, unspecified documented in this encounter Care Teams Precision Machinist Relationship Specialty Start Date End Date Greg Arnold MD PCP - General Family Practice 11/04/23 02/17/24 documented as of this encounter
--- OUTSIDE RECORDS SUMMARY | 2025-04-14 15:03 | XMS_ITS | Encounter Summary ---
Author Organization [facility] Address [address] [place] [address] Care Team Providers Care Supervisor Underwriting Clerks Name Role Phone Greg Arnold MD Primary Care Provider [phone] Encounter Details Date Type Department Care Team (Late st Contact Info) Description 09/11/2007 Orders Only [facility] Primary Care - [address] [place] [address] Azam Falcon MD NO ADDRESS ON FILE Social History Tobacco Use Types Packs/Day Years Used Date Smoking Tobacco: Never Assessed Sex and Gender Information Value Date Recorded Sex Assigned at Not on file Legal Sex Male 5:12 AM UNDERCUTTER OPERATOR Gender Identity Not on file Sexual Orientation Not on file documented as of this encounter Progress Notes * Azam Falcon MD - 11/06/2007 10:01 AM CDT TIME:10:11 am PATIENT`S HOME PHONE: PATIENT`S WORK PHONE: PATIENT`S INSURANCE: [employer] WHO TOOK THE CALL: Meggan Cowan A GENERAL INFORMATION PATIENT STATUS: Established Patient. LAST VISIT: 07/23/07 PCP: maria eugenia. ALTERNATIVE PHONE NUMBER: [phone] WHO CALLED: Patient called. CURRENT ALLERGY LIST: NO KNOWN ALLERGIES PROBLEMS: pt states that he is having a Male problem and would like to see MD today,pt states that for 3 days he has had burning when he urinates, no back pain or blood in urine, pt states that he does have a red area pls advise..........SAS SECTION 1: REQUESTED ACTION nia Shane/11/08 at 10:13 am: APPOINTMENT REQUEST: Patient wants an appointment today with PCP only, no appointments available. SECTION 2: DOCTOR`S RESPONSE: tangela 09/11/07 at 10:15 am see this afternoon FINAL ACTION: nia 09/11/07 at 10:25 am Spoke with patient 09/11/07 at 10:25 am. Booked appointment: 09/11/07 @ 3:30 pm W/ PC......................SAS Electronically Signed by: Meggan Cowan on Tuesday, September 11, 2007 * Azam aFlcon MD - 11/06/2007 9:56 AM CDT TEMPERATURE: 98??f Oral WEIGHT: [id number] BLOOD PRESSURE: 130/90 Right Arm Sitting NURSE NAME: PhanTanya K ALLERGIES: No known drug allergies. MEDICATIONS: [...] NEW PRESCRIPTION, 09/11/2007. LAB ORDERS: Order number: [id number] Test Ordered: CHLAMYDIA & GC PROBE [id number] Electronically Signed by: Azam Falcon MD on August documented in this encounter Plan of Treatment Not on file documented as of this encounter Visit Diagnoses Not on filedocumented in this encounter Care Teams Supervisor Underwriting Clerks Relationship Specialty Start Date End Date Greg Arnold MD PCP - General Family Practice 11/04/23 02/17/24 documented as of this encounter
--- OUTSIDE RECORDS SUMMARY | 2025-04-14 15:03 | XMS_ITS | Encounter Summary ---
Author Organization [facility] Address [address] [place] [address] Care Team Providers Care Design Teacher Name Role Phone Greg Arnold MD Primary Care Provider Encounter Details Date Type Department Care Team (Latest Contact Info) Description 01/07/2007 Outpatient Historical [facility] Primary Care - [address] [place] [address] Azam Falcon MD NO ADDRESS ON FILE Unspecified Genital Herpes (Primary Dx) Social History Tobacco Use Types Packs/Day Years Used Date Smoking Tobacco: Never Assessed Sex and Gender Information Value Date Recorded Sex Assigned at Not on file Legal Sex Male 5:12 AM CATTLE PRODUCERS Gender Identity Not on file Sexual Orientation [...] INTERFACE SYSTEM Comment: Lab test performed by: [employer] [address] [place] [address] [address] ROSINA BALDWIN MD 01/07/2007 2:13 PM CDT us Azam Falcon MD CHEMISTRY ORDERABLES Edited Performing Organization Address City/[facility] Co de Phone Number INTERFACE SYSTEM Refer to clinic/hospital department * CHLAMYDIA/N. GONORRHOEAE, DNA (01/07/2007 2:13 PM CDT) CHLAMYDIA TRACHOMATIS DNA NOT DETECTED NOT DETECTED INTERFACE SYSTEM NEISSERIA GONORRHOEAE DNA NOT DETECTED NOT DETECTED INTERFACE SYSTEM Comment: Lab test performed by: [employer] [address] [address] ROSINA BALDWIN 01/07/2007 2:13 PM CDT Azam Falcon MD BODY FLUIDS AND STOOLS Edited Performing Organization Address City/[facility] Co de Phone Number INTERFACE SYSTEM Refer to clinic/hospital department documented in this encounter Visit Diagnoses Diagnosis Genital herpes, unspecified- Primary documented in this encounter Care Teams Design Teacher Relationship Specialty Start Date End Date Greg Arnold MD PCP - General Family Practice 11/04/23 02/17/24 documented as of this encounter
--- OUTSIDE RECORDS SUMMARY | 2025-04-14 15:03 | XMS_ITS | Encounter Summary ---
Author Organization [facility] Address [address] [place] [address] Care Team Providers Care Erisa Attorney Name Role Phone Greg Arnold MD Primary Care Provider [phone] Encounter Details Date Type Department Care Team (Late st Contact Info) Description 08/01/2000 Outpatient Historical [facility] Primary Care - [address] [place] [address] Azam Falcon MD NO ADDRESS ON FILE Social History Tobacco Use Types Packs/Day Years Used Date Smoking Tobacco: Never Assessed Sex and Gender Information Value Date Recorded Sex Assigned at Not on file Legal Sex Male 5:12 AM QUALITY REVIEWER Gender Identity Not on file Sexual Orientation Not on file documented as of this encounter Plan of Treatment Not on file documented as of this encounter Visit Diagnoses Not on filedocumented in this encounter Care Teams Erisa Attorney Relationship Specialty Start Date End Date Greg Arnold MD PCP - General Family Practice 11/04/23 02/17/24 documented as of this encounter
--- OUTSIDE RECORDS SUMMARY | 2025-04-14 15:03 | XMS_ITS | Encounter Summary ---
Author Organization [facility] Address [address] [place] [address] Care Team Providers Care Drop Man Name Role Phone Greg Arnold MD Primary Care Provider [phone] Encounter Details Date Type Department Care Team (Late st Contact Info) Description 09/23/2007 Orders Only [facility] Primary Care - [facility] [address] [place] [address] [address] [place] [address] Estella Manning MD [address] [place] [address] [address] [place] [address] Social History Tobacco Use Types Packs/Day Years Used Date Smoking Tobacco: Never Assessed Sex and Gender Information Value Date Recorded Sex Assigned at Not on file Legal Sex Male 5:12 AM HEALTH PROFESSIONAL Gender Identity Not on file Sexual Orientation Not on file documented as of this encounter Progress Notes * Estella Manning MD - 11/06/2007 11:12 AM CDT TIME:02:55 pm PATIENT`S HOME PHONE: PATIENT`S WORK PHONE: PATIENT`S INSURANCE: [facility] WHO TOOK THE CALL: Meggan Cowan A GENERAL INFORMATION PATIENT STATUS: Established Patient. LAST VISIT: 09/11/07 PCP: maria eugenia. ALTERNATIVE PHONE NUMBER: [phone] WHO CALLED: Patient called. CURRENT ALLERGY LIST: NO KNOWN ALLERGIES PHARMACY NUMBER: [phone] PROBLEMS: PINK EYE: Patient complains of pink eye. both eyes, watery, itchy, red SECTION 1: REQUESTED ACTION sovasa 09/23/07 at 02:56 pm: MEDICATION REQUEST: pt [...] on filedocumented in this encounter Care Teams Drop Man Relationship Specialty Start Date End Date Greg Arnold MD PCP - General Family Practice 11/04/23 02/17/24 documented as of this encounter
--- OUTSIDE RECORDS SUMMARY | 2025-04-14 15:03 | XMS_ITS | Encounter Summary ---
Author Organization [facility] Address 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, [place] [address] Patient: CHARLES LONGO : 1950 Procedure Date: 09/21/2008 Accession Date: 09/21/2008 Case No: [id number] Ordering Dr: SATHISH PIMENTEL Case types AW, BW, FW, NW and SH are performed by [facility] [place], [place] SURGICAL PATHOLOGY & NON-GYNECOLOGIC CYTOPATHOLOGY REPORT DIAGNOSIS SKIN, SITE NOT SPECIFIED, EXCISION: - FRAGMENTS OF CONDYLOMA ACCUMINATUM. Specimen Description: Condyloma. Operative Procedure: Excision and fulguration condyloma. Patient Information/Histor y/Diagnosis: Condyloma. Gross: Received in a single container labeled Charles Jazzy, condyloma are four verrucous delgado papules ranging from 0.4 to 0.6 cm in greatest dimension. The base of each lesion is marked with blue ink. The specimen is submitted entirely in cassette A1. KLA/[place] 09.22.2008 05:40 am Microscopic: The slide is labeled [id number] and Charles Longo. 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 NATTY/TERESSA 09.22.2008 05:23 pm Staging Form: No. ELECTRONIC SIGNATURE FOR JOSESITO BLAND M.D.- 09/23/08 07:07 am INTERFACE SYSTEM 09/21/2008 1:55 PM CDT us Sathish Pimentel MD PATHOLOGY/CYTOLOGY ORDERABL ES Final Result Performing Organization Address [facility] de Phone Number INTERFACE SYSTEM Refer to clinic/hospital department * HEMOGLOBIN AND HEMATOCRIT (09/19/2008 1:32 PM CDT) HEMATOCRIT 42.5 40.0 - 48.0 % [facility] HEMOGLOBIN 13.8 13.6 - 16.5 g/dL [facility] Blood specimen (specimen) 09/19/2008 1:32 PM CDT 09/19/2008 3:00 PM CDT us Sathish Pimentel MD HEMATOLOGY ORDERABLES Final Result Performing Organization Address City/[facility]/ZIP Co de Phone Number INTERFACE SYSTEM Refer to clinic/hospital department [facility] CLIA# [id number] [address] [place] [address] documented in this encounter Visit Diagnoses Diagnosis Viral warts, unspecified documented in this encounter Care Teams Purchaser Automotive Parts Relationship Specialty Start Date End Date Greg Arnold MD PCP - General Family Practice 11/04/23 02/17/24 documented as of this encounter
--- OUTSIDE RECORDS SUMMARY | 2025-04-14 15:03 | XMS_ITS | Encounter Summary ---
Author Organization [facility] Address [address] [place] [address] Care Team Providers Care Multiple Effect Evaporator Operator Name Role Phone Greg Arnold MD Primary Care Provider [phone] Encounter Details Date Type Department Care Team (Latest Contact Info) Description 09/11/2007 Outpatient Historical [facility] Primary Care - [address] [place] [address] Azam Falcon MD NO ADDRESS ON FILE Unspecified Nongonococcal Urethritis (KYLAH) Social History Tobacco Use Types Packs/Day Years Used Date Smoking Tobacco: Never Assessed Sex and Gender Information Value Date Recorded Sex Assigned at Not on file 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 GONORRHOEAE, DNA Routine 09/11/2007 9:33 PM CDT documented in this encounter Results * CHLAMYDIA/N. GONORRHOEAE, DNA (09/11/2007 9:33 PM CDT) NEISSERIA GONORRHOEAE DNA NOT DETECTED NOT DETECTED [facility] Comment: Lab test performed by: [facility] [id number] [place] [address] ROSINA BALDWIN MD CHLAMYDIA TRACHOMATIS DNA NOT DETECTED NOT DETECTED [facility] Specimen of unknown material (specimen) (Urethral) 09/11/2007 9:33 PM CDT 09/11/2007 9:57 PM CDT us Azam Falcon MD BODY FLUIDS AND STOOLS Final Result Performing Organization Address City/State/[facility] Co de Phone Number [facility] [address] [place] [address] documented in this encounter Visit Diagnoses Diagnosis Unspecified nongonococcal urethritis (KYLAH) documented in this encounter Care Teams Multiple Effect Evaporator Operator Relationship Specialty Start Date End Date Greg Arnold MD PCP - General Family Practice 11/04/23 02/17/24 documented as of this encounter
--- OUTSIDE RECORDS SUMMARY | 2025-04-14 15:03 | XMS_ITS | Encounter Summary ---
Author Organization [facility] Address [address] [place] [address] Care Team Providers Care Emergency Medical Service Manager Name Role Phone Greg Arnold MD Primary Care Provider [phone] Encounter Details Date Type Department Care Team (Late st Contact Info) Description 07/23/2007 Outpatient Historical [facility] Primary Care - [facility] [address] [place] [address] Estella Manning MD [address] [place] [address] [address] [place] [address] Social History Tobacco Use Types Packs/Day Years Used Date Smoking Tobacco: Never Assessed Sex and Gender Information Value Date Recorded Sex Assigned at Not on file 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
--- OUTSIDE RECORDS SUMMARY | 2025-04-14 15:03 | XMS_ITS | Encounter Summary ---
Author Organization [facility] Address [address] [place] [address] Care Team Providers Care Supervisor Harvesting Name Role Phone Greg Arnold MD Primary Care Provider [phone] Encounter Details Date Type Department Care Team (Latest Contact Info) Description 11/07/2006 Outpatient Historical [facility] Care - [address] [place] [address] Azam Falcon MD NO ADDRESS ON FILE Special Screening for Malignant Neoplasm of Prostate (Primary Dx) Social History Tobacco Use Types Packs/Day Years Used Date Smoking Tobacco: Never Assessed Sex and Gender Information Value Date Recorded Sex Assigned at Not on file 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
--- OUTSIDE RECORDS SUMMARY | 2025-04-14 15:03 | XMS_ITS | Encounter Summary ---
Author Organization [facility] Address 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
--- OUTSIDE RECORDS SUMMARY | 2025-04-14 15:03 | XMS_ITS | Encounter Summary ---
Author Organization [facility] Address 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
--- OUTSIDE RECORDS SUMMARY | 2025-04-14 15:03 | XMS_ITS | Encounter Summary ---
Author Organization [facility] Address [address] [place] [address] Care Team Providers Care Gambling Floor Supervisor Name Role Phone Greg Arnold MD Primary Care Provider [phone] Encounter Details Date Type Department Care Team (Late st Contact Info) Description 07/23/2007 Outpatient Historical [facility] Primary Care - [facility] 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
--- OUTSIDE RECORDS SUMMARY | 2025-04-14 15:03 | XMS_ITS | Encounter Summary ---
Author Organization [facility] Address [address] [place] [address] Care Team Providers Care Transportation Attendant Name Role Phone Greg Arnold MD Primary Care Provider [phone] Encounter Details Date Type Department Care Team (Latest Contact Info) Description 04/16/2007 Outpatient Historical [facility] Primary Care - [address] [place] [address] Azam Falcon MD NO ADDRESS ON FILE Other Abnormal Glucose (Primary Dx) Social History Tobacco Use Types Packs/Day Years Used Date Smoking Tobacco: Never Assessed Sex and Gender Information Value Date Recorded Sex Assigned at Not on file Legal 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 Male 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 Gender Identity Not on file Sexual Orientation Not on file documented as of this encounter Plan of Treatment Not on file documented as of this encounter Procedures Procedure Name Priority Date/Time Associated Diagnosis Comments HEMOGLOBIN A1C Routine 04/16/2007 5:24 PM RAILROAD YARD WORKER GLUCOSE LEVEL Routine 04/16/2007 5:24 PM RAILROAD YARD WORKER documented in this encounter Results * HEMOGLOBIN A1C (04/16/2007 5:24 PM RAILROAD YARD WORKER) HEMOGLOBIN A1C 6.1 4.1 - 6.1 % of Hgb INTERFACE SYSTEM GLUCOSE, MEAN BLOOD 140 mg/dL INTERFACE SYSTEM 04/16/2007 5:24 PM RAILROAD YARD WORKER us Azam Falcon MD CHEMISTRY ORDERABLES Edited INTERFACE SYSTEM Refer to clinic/hospital department * GLUCOSE LEVEL (04/16/2007 5:24 PM RAILROAD YARD WORKER) GLUCOSE 86 65 - 99 mg/dL INTERFACE SYSTEM 04/16/2007 5:24 PM RAILROAD YARD WORKER us Azam Falcon MD CHEMISTRY ORDERABLES Edited INTERFACE SYSTEM Refer to clinic/hospital department documented in this encounter Visit Diagnoses Diagnosis Other abnormal glucose- Primary documented in this encounter Care Teams Transportation Attendant Relationship Specialty Start Date End Date Greg Arnold MD PCP - General Family Practice 11/04/23 02/17/24 documented as of this encounter
--- OUTSIDE RECORDS SUMMARY | 2025-04-14 15:03 | XMS_ITS | Encounter Summary ---
Author Organization [facility] Address [address] [place] [address] Care Team Providers Care Beehive Kiln Charcoal Burner Name Role Phone Greg Arnold MD Primary Care Provider [phone] Encounter Details Date Type Department Care Team (Late st Contact Info) Description 04/16/2007 Outpatient Historical [facility] Primary Care - [address] [place] [address] Azam Falcon MD NO ADDRESS ON FILE Social History Tobacco Use Types Packs/Day Years Used Date Smoking Tobacco: Never Assessed Sex and Gender Information Value Date Recorded Sex Assigned at Not on file Legal Sex Male 5:12 AM CUSTOMER SERVICE ASSOCIATE Gender Identity Not on file Sexual Orientation Not on file documented as of this encounter Plan of Treatment Not on file documented as of this encounter Visit Diagnoses Not on filedocumented in this encounter Care Teams Beehive Kiln Charcoal Burner Relationship Specialty Start Date End Date Greg Arnold MD PCP - General Family Practice 11/04/23 02/17/24 documented as of this encounter
--- OUTSIDE RECORDS SUMMARY | 2025-04-14 15:03 | XMS_ITS | Encounter Summary ---
Author Organization [facility] Address 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
--- OUTSIDE RECORDS SUMMARY | 2025-04-14 15:03 | XMS_ITS | Encounter Summary ---
Author Organization [facility] Address 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
[2025-04-14 15:06] VITALS: BP 154/85; PULSE 78; RESP 16; TEMP 36.4; O2SAT 100
--- OUTSIDE RECORDS SUMMARY | 2025-04-14 16:21 | XMS_ITS | Encounter Summary ---
Author Organization Address 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
--- OUTSIDE RECORDS SUMMARY | 2025-04-14 16:21 | XMS_ITS | Encounter Summary ---
Author Organization [facility] Address 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
--- OUTSIDE RECORDS SUMMARY | 2025-04-14 16:21 | XMS_ITS | Encounter Summary ---
Author Organization [facility] Address 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
--- OUTSIDE RECORDS SUMMARY | 2025-04-14 16:21 | XMS_ITS | Clinical Summary ---
Author Organization [facility] Address [address] [place] [address] Care Team Providers Care Medical Technologist Generalist Name Role Phone Unavailable Primary Care Provider [...] Strip Test once daily DX code E11.9 [facility] 0820062214 100 Strip 11 4 Active Active Problems [...] Months Immunizations Immunization Administration Dates Next Due ([place]) COVID-19 VACCINE - EMERGENCY USE AUTHORIZATION, AD26,COV2S(PF) [...] than three times a week 09/27/2020 Attends [employer] Services Not on file 09/27 Do you belong to any clubs o r organizations such as episcopalian groups, unions, fraternal or athletic groups, or [...] file Legal Sex Male 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 Gender Identity Not on file Sexual Orientation [...] series) 2027 Medical Devices Implanted Type Area Sales Account Representative Device Identifier Shelf Expiration Date Model / Serial / Lot Clip Endo Resolution 360 235cm [id number] - [id number] Implanted:Qty: 1 on 02/03/2024 by Maksim Garcia MD at [facility] Clip N/A: [employer] [id number] 09/19/2026 [id number] / / [id number] Procedures Procedure Name Priority Date/Time Associated Diagnosis Comments COLONOSCOPY REPORT 02/03/2024 11 :04 AM CDT LIPID PANEL Routine 03/07/2023 11:19 AM CDT Type 2 diabetes mellitus without complication, without long-term current use of insulin ([facility]) HEMOGLOBIN A1C Routine 03/07/2023 11:19 AM CDT Type 2 diabetes mellitus without complication, without long-term current use of insulin ([facility]) MICROALBUMIN/CREATIN INE RATIO, RANDOM UR Routine 06/04/2021 11:44 AM NURSERY LABORER HM DIABETES EYE EXAM Routine 01/23/2021 from Last 3 Months or Most Recently Relevant to Health Maintenance Results * COLONOSCOPY REPORT (02/03/2024 11:04 AM CDT) Narrative Procedure Note Maksim Garcia MD - 02/03/2024 11:04 AM CDT [facility] Endoscopy Patient Name: Charles Purcell Procedure [...] Number of Addenda: 0 [address] [facility]; [place] [address] Maksim Garcia MD GI PROCEDURE ORDERABL ES Final Result * (ABNORMAL) HEMOGLOBIN A1C (03/07/2023 11:19 AM CDT) HEMOGLOBIN A1C 6.8(H) <5.7 % of total Hgb [facility] Comment: For someone without known diabetes, [...] children. ESTIMATED AVERAGE GLUCOSE (MG/DL) 148 mg/dL [facility] [employer] Barry ESTIMATED AVERAGE GLUCOSE (MMOL/L) 8.2 mmol/L Narcisa Barry Comment: FASTING:YES FASTING: YES Test Performed at: [facility] [address] [place] [address] Cuco Haque Blood 03/07/2023 11:1 9 AM CDT 03/07/2023 11:19 AM CDT us Azam Falcon MD CHEMISTRY ORDERABLES Final Re sult [facility] [phone] [facility] [address] [place] [address] * LIPID PANEL (03/07/2023 11:19 AM CDT) CHOLESTEROL 131 <200 mg/dL [facility] Papa Barry HDL 58 > OR = 40 mg/dL Narcisa Barry TRIGLYCERIDE 126 <150 mg/dL [facility] [employer] [facility] LDL CALCULATED 52 mg/dL (calc) Narcisa [employer] [employer] Barry Comment: Reference range: <100 Desirable range <100 mg/dL for primary prevention; <70 mg/dL for patients with CHD or diabetic patients with > or = 2 CHD risk factors. LDL-C is now calculated using the Godwin-Beckie calculation, which is a validated novel method providing better accuracy than the Friedewald equation in the estimation of LDL-C. Godwin MORTON et al. TATUM. 2013;310(19): 5350-1240 (http://education.Queryday.BringIt/faq/ZHV732) CHOL/HDL RATIO 2.3 <5.0 (calc) Narcisa Barry TOTAL NON-HDL CHOL(LDL+VLDL) 73 <130 mg/dL (calc) Narcisa Barry Comment: For patients with diabetes plus 1 major ASCVD risk factor, treating to a non-HDL-C goal of <100 mg/dL (LDL-C of <70 mg/dL) is considered a therapeutic option. FASTING:YES FASTING: YES Test Performed at: [place] [address] [place] [address] Cuco Barragan Vo Blood 03/07/2023 11:1 9 AM CDT 03/07/2023 11:19 AM CDT Azam Falcon MD CHEMISTRY ORDERABLES Final Re sult Performing Organization Address [facility]/ZIP Code Phone Number [facility] [phone] [facility] [address] [place] [address] * MICROALBUMIN/CREATININE RATIO, RANDOM UR (06/04/2021 11:44 AM NURSERY LABORER) Creatinine, Urine 62 20 - 320 mg/dL [facility] MICROALBUMIN, URINE 1.0 See Note: mg/dL [facility] Comment: Reference Range: Reference Range Not established MICROALBUMIN/CREAT RATIO, UR 16 <30 mcg/mg creat [facility] Comment: The ADA defines abnormalities in albumin excretion as follows: Albuminuria Category Result (mcg/mg creatinine) Normal to Mildly increased <30 Moderately increased 30-299 Severely increased > OR = 300 The ADA recommends that at least two of three specimens collected within a 3-6 month period be abnormal before considering a patient to be within a diagnostic category. Test Performed at: [facility] [address] [place] [address] Maksim Savage D.O., MPH 06/04/2021 11:4 4 AM NURSERY LABORER 06/04/2021 11:45 AM NURSERY LABORER Azam Falcon MD URINE ORDERABLES Final Result Performing Organization Address City/[facility]/ZIP Co de Phone Number [facility] [address] [place] [address] * DIABETES EYE EXAM (01/23/2021) Abstract Provider HEALTH MAINTENANCE Edited Resu lt - Final [facility]# [id number] [address] [place] [address] from Last 3 Months or Most Recently Relevant to Health Maintenance Insurance MEDICARE PART A AND B [employer] Advance Directives For more information, please contact: [phone] * Full Code (Latest Code Status on File) Date Activated Date Inactivated Comments 02/03/2024 9:34 AM 02/03/2024 1:43 PM * Full Code Date Activated Date Inactivated Comments 12/05/2022 11:21 AM 12/05/2022 3:25 PM * Full Code Date Activated Date Inactivated Comments 11/03/2018 8:20 AM 11/03/2018 11:58 AM
--- OUTSIDE RECORDS SUMMARY | 2025-04-14 16:21 | XMS_ITS | Encounter Summary ---
Author Organization [facility] Address [address] [place] [address] Care Team Providers Care Licensed Marine Engineer Name Role Phone Greg Arnold MD Primary Care Provider [phone] Encounter Details Date Type Department Care Team [...] on file Legal Sex Male 5:12 AM STUDENT SPECIALIST Gender Identity Not on file Sexual Orientation Not on file documented as of this encounter Plan of Treatment Not on file documented as of this encounter Procedures Procedure Name Priority Date/Time Associated Diagnosis Comments PATHOLOGY Routine 09/21/2008 1:55 PM CDT HEMOGLOBIN AND HEMATOCRIT Routine 09/19/2008 1:32 PM CDT documented in this encounter Results * PATHOLOGY (09/21/2008 1:55 PM CDT) FINAL REPORT [facility] [address], [place] [address] Patient: CHARLES LONGO : 1950 Procedure Date: 09/21/2008 Accession Date: 09/21/2008 Case No: [id number] Ordering Dr: SATHISH PIMENTEL Case types AW, BW, FW, NW and SH are performed by [facility], [place], [place] SURGICAL PATHOLOGY & NON-GYNECOLOGIC CYTOPATHOLOGY REPORT [...] 05:40 am Microscopic: The slide is labeled [id number] and Charles Longo. 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 NATTY/TERESSA 09.22.2008 05:23 pm Staging Form: No. ELECTRONIC SIGNATURE FOR JOSESITO BLAND M.D.- 09/23/08 07:07 am INTERFACE SYSTEM 09/21/2008 1:55 PM CDT us Sathish Pimentel MD PATHOLOGY/CYTOLOGY ORDERABL ES Final Result Performing Organization Address [facility] de Phone Number INTERFACE SYSTEM Refer to clinic/hospital department * HEMOGLOBIN AND HEMATOCRIT (09/19/2008 1:32 PM CDT) HEMATOCRIT 42.5 40.0 - 48.0 % [facility] HEMOGLOBIN 13.8 13.6 - 16.5 g/dL [facility] Blood specimen (specimen) 09/19/2008 1:32 PM CDT 09/19/2008 3:00 PM CDT us Sathish Pimentel MD HEMATOLOGY ORDERABLES Final Result Performing Organization Address City/[facility]/ZIP Co de Phone Number INTERFACE SYSTEM Refer to clinic/hospital department [facility] CLIA# [id number] [address] [place] [address] documented in this encounter Visit Diagnoses Diagnosis Viral warts, unspecified documented in this encounter Care Teams Licensed Marine Engineer Relationship Specialty Start Date End Date Greg Arnold MD PCP - General Family Practice 11/04/23 02/17/24 documented as of this encounter
--- OUTSIDE RECORDS SUMMARY | 2025-04-14 16:21 | XMS_ITS | Encounter Summary ---
Author Organization [facility] Address [address] [place] [address] Care Team Providers Care Exercise Science Instructor Name Role Phone Greg Arnold MD Primary Care Provider [phone] Encounter Details Date Type Department Care Team (Late st Contact Info) Description 02/24/1998 Outpatient Historical [facility] Primary Care - [address] [place] [address] Azam Falcon MD NO ADDRESS ON FILE Social History Tobacco Use Types Packs/Day Years Used Date Smoking Tobacco: Never Assessed Sex and Gender Information Value Date Recorded Sex Assigned at Not on file Legal Sex Male 5:12 AM DIVEMASTER Gender Identity Not on file Sexual Orientation Not on file documented as of this encounter Plan of Treatment Not on file documented as of this encounter Visit Diagnoses Not on filedocumented in this encounter Care Teams Exercise Science Instructor Relationship Specialty Start Date End Date Greg Arnold MD PCP - General Family Practice 11/04/23 02/17/24 documented as of this encounter
--- OUTSIDE RECORDS SUMMARY | 2025-04-14 16:21 | XMS_ITS | Encounter Summary ---
Author Organization [facility] Address 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
--- OUTSIDE RECORDS SUMMARY | 2025-04-14 16:21 | XMS_ITS | Encounter Summary ---
Author Organization [facility] Address 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
--- OUTSIDE RECORDS SUMMARY | 2025-04-14 16:21 | XMS_ITS | Encounter Summary ---
Author Organization [facility] Address [address] [place] [address] Care Team Providers Care Onion Tier Name Role Phone Greg Arnold MD Primary Care Provider [phone] Encounter Details Date Type Department Care Team (Late st Contact Info) Description 07/12/2005 Orders Only [facility] Primary Care - [address] [place] [address] Azam Falcon MD NO ADDRESS ON FILE Social History Tobacco Use Types Packs/Day Years Used Date Smoking Tobacco: Never Assessed Sex and Gender Information Value Date Recorded Sex Assigned at Not on file Legal Sex Male 5:12 AM WET SANDER Gender Identity Not on file Sexual Orientation Not on file documented as of this encounter Progress Notes * Azam Falcon MD - 03/10/2008 2:36 PM CDT TIME:10:11 am PATIENT`S HOME PHONE: PATIENT`S WORK PHONE: PATIENT`S INSURANCE: [employer] WHO TOOK THE CALL: Lashon Santillan M GENERAL INFORMATION PATIENT STATUS: Established Patient. LAST VISIT: 05/15/05 PCP: maria eugenia WHO CALLED: Pharmacy called. PHARMACY NUMBER: [phone] SECTION 1: REQUESTED ACTION maia 07/12/05 at 10:12 am: MEDICATION REQUEST: MEDICATION REQUEST: Patient requests a refill. MEDICATIONS: LISINOPRIL ORAL TABLET 40 MG, 1 Every Morning, 30 Dispensed, 5 Fills, 30 Duration/Days Supply, status: NEW PRESCRIPTION, 01/11/2005. Pharm asking for Lisinopril 20mg # 30 L/R 04/26 Ok to refill? /lashon need chart [facility]AL [facility] office/laney SECTION 2: RN/CARL RESPONSE: [facility] 07/12/05 at 01:29 pm MEDICATIONS: LISINOPRIL ORAL TABLET 40 MG, 1 Every Morning, 30 Dispensed, 5 Fills, 30 Duration/Days Supply, status: DISCONTINUED, 07/12/2005. LISINOPRIL ORAL TABLET 20 MG, 1 Every Day, 30 Dispensed, 3 Fills, 30 Duration/Days Supply, status: NEW PRESCRIPTION, 07/12/2005. FINAL ACTION: [facility] 07/12/05 at 01:34 pm Called pharmacy at 07/12/05 at 01:34 pm. ritchie/laney Electronically Signed by: Laney Diaz on Tuesday, July 12, 2005 documented in this encounter Plan of Treatment Not on file documented as of this encounter Visit Diagnoses Not on filedocumented in this encounter Care Teams Onion Tier Relationship Specialty Start Date End Date Greg Arnold MD PCP - General Family Practice 11/04/23 02/17/24 documented as of this encounter
--- OUTSIDE RECORDS SUMMARY | 2025-04-14 16:21 | XMS_ITS | Encounter Summary ---
Author Organization [facility] Address 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
--- OUTSIDE RECORDS SUMMARY | 2025-04-14 16:21 | XMS_ITS | Encounter Summary ---
Author Organization [facility] Address 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
--- OUTSIDE RECORDS SUMMARY | 2025-04-14 16:21 | XMS_ITS | Encounter Summary ---
Author Organization [facility] Address 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
--- OUTSIDE RECORDS SUMMARY | 2025-04-14 16:21 | XMS_ITS | Encounter Summary ---
Author Organization [facility] Address 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 Gender Identity Not on file Sexual Orientation Not on file documented as of this encounter Last Filed Vital Signs Vital Sign Reading Time Taken Comments Blood Pressure 148/80 08/05/2005 3:00 PM PHYSICS DEPARTMENT CHAIR Pulse - - Temperature 36.6 C (97.9 F) 08/05/2005 3:00 PM PHYSICS DEPARTMENT CHAIR Respiratory Rate - - Oxygen Saturation - - Inhaled Oxygen Concentration - - Weight 100.2 kg (221 lb) 08/05/2005 3:00 PM PHYSICS DEPARTMENT CHAIR Height - - Body Mass Index - - documented in this encounter Plan of Treatment Not on file documented as of this encounter Visit Diagnoses Not on filedocumented in this encounter Care Teams Stamping Die Maker Relationship Specialty Start Date End Date Greg Arnold MD PCP - General Family Practice 11/04/23 02/17/24 documented as of this encounter
--- OUTSIDE RECORDS SUMMARY | 2025-04-14 16:21 | XMS_ITS | Encounter Summary ---
Author Organization [facility] Address 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
--- OUTSIDE RECORDS SUMMARY | 2025-04-14 16:21 | XMS_ITS | Encounter Summary ---
Author Organization [facility] Address 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
--- OUTSIDE RECORDS SUMMARY | 2025-04-14 16:21 | XMS_ITS | Encounter Summary ---
Author Organization [facility] Address [address] [place] [address] Care Team Providers Care Cat Driver Name Role Phone Greg Arnold MD Primary Care Provider [phone] Encounter Details Date Type Department Care Team (Late st Contact Info) Description 10/11/2003 Outpatient Historical [facility] Primary Care - [address] [place] [address] Azam Falcon MD NO ADDRESS ON FILE Social History Tobacco Use Types Packs/Day Years Used Date Smoking Tobacco: Never Assessed Sex and Gender Information Value Date Recorded Sex Assigned at Not on file Legal Sex Male 5:12 AM BUZZLE BUFFER Gender Identity Not on file Sexual Orientation Not on file documented as of this encounter Plan of Treatment Not on file documented as of this encounter Visit Diagnoses Not on filedocumented in this encounter Care Teams Cat Driver Relationship Specialty Start Date End Date Greg Arnold MD PCP - General Family Practice 11/04/23 02/17/24 documented as of this encounter
--- OUTSIDE RECORDS SUMMARY | 2025-04-14 16:21 | XMS_ITS | Encounter Summary ---
Author Organization [facility] Address 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
--- OUTSIDE RECORDS SUMMARY | 2025-04-14 16:21 | XMS_ITS | Encounter Summary ---
Author Organization [facility] Address 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
--- OUTSIDE RECORDS SUMMARY | 2025-04-14 16:21 | XMS_ITS | Encounter Summary ---
Author Organization [facility] Address [address] [place] [address] Care Team Providers Care Cath Lab Radiology Technician Name Role Phone Greg Arnold MD Primary Care Provider [phone] Encounter Details Date Type Department Care Team (Late st Contact Info) Description 10/11/[address] [facility] Primary Care - [address] [place] [address] Azam Falcon MD NO ADDRESS ON FILE Social History Tobacco Use Types Packs/Day Years Used Date Smoking Tobacco: Never Assessed Sex and Gender Information Value Date Recorded Sex Assigned at Not on file Legal Sex Male 5:12 AM REHAB PHYSICIAN Gender Identity Not on file Sexual Orientation Not on file documented as of this encounter Plan of Treatment Not on file documented as of this encounter Visit Diagnoses Not on filedocumented in this encounter Care Teams Cath Lab Radiology Technician Relationship Specialty Start Date End Date Greg Arnold MD PCP - General Family Practice 11/04/23 02/17/24 documented as of this encounter
--- OUTSIDE RECORDS SUMMARY | 2025-04-14 16:21 | XMS_ITS | Encounter Summary ---
Author Organization [facility] Address 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
--- OUTSIDE RECORDS SUMMARY | 2025-04-14 16:21 | XMS_ITS | Encounter Summary ---
Author Organization [facility] Address [address] [place] [address] Care Team Providers Care Applications Sales Representative Name Role Phone Greg Arnold MD Primary Care Provider [phone] Encounter Details Date Type Department Care Team (Late st Contact Info) Description 06/12/2006 Orders Only [facility] Primary Care - [address] [place] [address] Azam Falcon MD NO ADDRESS ON FILE Social History Tobacco Use Types Packs/Day Years Used Date Smoking Tobacco: Never Assessed Sex and Gender Information Value Date Recorded Sex Assigned at Not on file Legal Sex Male 5:12 AM INFORMATION MANAGEMENT SPECIALIST Gender Identity Not on file Sexual Orientation Not on file documented as of this encounter Plan of Treatment Not on file documented as of this encounter Visit Diagnoses Not on filedocumented in this encounter Care Teams Applications Sales Representative Relationship Specialty Start Date End Date Greg Arnold MD PCP - General Family Practice 11/04/23 02/17/24 documented as of this encounter
--- OUTSIDE RECORDS SUMMARY | 2025-04-14 16:21 | XMS_ITS | Encounter Summary ---
Author Organization [facility] Address [address] [place] [address] Care Team Providers Care Marine Fireman Name Role Phone Greg Arnold MD Primary Care Provider [phone] Encounter Details Date Type Department Care Team (Late st Contact Info) Description 01/02/2001 Outpatient Historical [facility] Primary Care - [address] [place] [address] Azam Falcon MD NO ADDRESS ON FILE Social History Tobacco Use Types Packs/Day Years Used Date Smoking Tobacco: Never Assessed Sex and Gender Information Value Date Recorded Sex Assigned at Not on file Legal Sex Male 5:12 AM SENIOR QC TECHNICIAN Gender Identity Not on file Sexual Orientation Not on file documented as of this encounter Plan of Treatment Not on file documented as of this encounter Visit Diagnoses Not on filedocumented in this encounter Care Teams Marine Fireman Relationship Specialty Start Date End Date Greg Arnold MD PCP - General Family Practice 11/04/23 02/17/24 documented as of this encounter
--- OUTSIDE RECORDS SUMMARY | 2025-04-14 16:21 | XMS_ITS | Encounter Summary ---
Author Organization [facility] Address [address] [place] [address] Care Team Providers Care Roofing Apprentice Name Role Phone Greg Arnold MD Primary Care Provider [phone] Encounter Details Date Type Department Care Team (Late st Contact Info) Description 12/04/2001 Outpatient Historical [facility] Primary Care - [address] [place] [address] Azam Falcon MD NO ADDRESS ON FILE Social History Tobacco Use Types Packs/Day Years Used Date Smoking Tobacco: Never Assessed Sex and Gender Information Value Date Recorded Sex Assigned at Not on file Legal Sex Male 5:12 AM FOOD STAND MANAGER Gender Identity Not on file Sexual Orientation Not on file documented as of this encounter Plan of Treatment Not on file documented as of this encounter Visit Diagnoses Not on filedocumented in this encounter Care Teams Roofing Apprentice Relationship Specialty Start Date End Date Greg Arnold MD PCP - General Family Practice 11/04/23 02/17/24 documented as of this encounter
--- OUTSIDE RECORDS SUMMARY | 2025-04-14 16:21 | XMS_ITS | Encounter Summary ---
Author Organization [facility] Address [address] [place] [address] Care Team Providers Care Environmental Projects Advisor Name Role Phone Greg Arnold MD Primary Care Provider [phone] Encounter Details Date Type Department Care Team (Late st Contact Info) Description 09/10/2000 Outpatient Historical [facility] Primary Care - [address] [place] [address] Azam Falcon MD NO ADDRESS ON FILE Social History Tobacco Use Types Packs/Day Years Used Date Smoking Tobacco: Never Assessed Sex and Gender Information Value Date Recorded Sex Assigned at Not on file Legal Sex Male 5:12 AM RAILROAD PURCHASING AGENT Gender Identity Not on file Sexual Orientation Not on file documented as of this encounter Plan of Treatment Not on file documented as of this encounter Visit Diagnoses Not on filedocumented in this encounter Care Teams Environmental Projects Advisor Relationship Specialty Start Date End Date Greg Arnold MD PCP - General Family Practice 11/04/23 02/17/24 documented as of this encounter
--- OUTSIDE RECORDS SUMMARY | 2025-04-14 16:21 | XMS_ITS | Encounter Summary ---
Author Organization [facility] Address [address] [place] [address] Care Team Providers Care Web Interface Developer Name Role Phone Greg Arnold MD Primary Care Provider [phone] Encounter Details Date Type Department Care Team (Late st Contact Info) Description 05/15/2005 Outpatient Historical [facility] Primary Care - [address] [place] [address] Azam Falcon MD NO ADDRESS ON FILE Social History Tobacco Use Types Packs/Day Years Used Date Smoking Tobacco: Never Assessed Sex and Gender Information Value Date Recorded Sex Assigned at Not on file Legal Sex Male 5:12 AM LIMOUSINE 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
--- OUTSIDE RECORDS SUMMARY | 2025-04-14 16:21 | XMS_ITS | Encounter Summary ---
Author Organization [facility] Address [address] [place] [address] Care Team Providers Care Tripe Scraper Name Role Phone Greg Arnold MD Primary Care Provider [phone] Encounter Details Date Type Department Care Team (Late st Contact Info) Description 10/11/2004 Outpatient Historical [facility] Primary Care - [address] [place] [address] Azam Falcon MD NO ADDRESS ON FILE Social History Tobacco Use Types Packs/Day Years Used Date Smoking Tobacco: Never Assessed Sex and Gender Information Value Date Recorded Sex Assigned at Not on file Legal Sex Male 5:12 AM DIRECTOR INSTITUTION Gender Identity Not on file Sexual Orientation Not on file documented as of this encounter Plan of Treatment Not on file documented as of this encounter Visit Diagnoses Not on filedocumented in this encounter Care Teams Tripe Scraper Relationship Specialty Start Date End Date Greg Arnold MD PCP - General Family Practice 11/04/23 02/17/24 documented as of this encounter
--- OUTSIDE RECORDS SUMMARY | 2025-04-14 16:21 | XMS_ITS | Encounter Summary ---
Author Organization [facility] Address [address] [place] [address] Care Team Providers Care Alliance Consultant Name Role Phone Greg Arnold MD Primary Care Provider [phone] Encounter Details Date Type Department Care Team (Late st Contact Info) Description 10/19/2002 Outpatient Historical [facility] Primary Care - [address] [place] [address] Azam Falcon MD NO ADDRESS ON FILE Social History Tobacco Use Types Packs/Day Years Used Date Smoking Tobacco: Never Assessed Sex and Gender Information Value Date Recorded Sex Assigned at Not on file Legal Sex Male 5:12 AM SCHOOL PSYCHOLOGIST Gender Identity Not on file Sexual Orientation Not on file documented as of this encounter Plan of Treatment Not on file documented as of this encounter Visit Diagnoses Not on filedocumented in this encounter Care Teams Alliance Consultant Relationship Specialty Start Date End Date Greg Arnold MD PCP - General Family Practice 11/04/23 02/17/24 documented as of this encounter
--- OUTSIDE RECORDS SUMMARY | 2025-04-14 16:21 | XMS_ITS | Encounter Summary ---
Author Organization [facility] Address [address] [place] [address] Care Team Providers Care Half Sole Fitter Name Role Phone Greg Arnold MD Primary Care Provider [phone] Encounter Details Date Type Department Care Team (Late st Contact Info) Description 01/22/2006 Outpatient Historical [facility] Care - [address] [place] [address] Azam Falcon MD NO ADDRESS ON FILE Social History Tobacco Use Types Packs/Day Years Used Date Smoking Tobacco: Never Assessed Sex and Gender Information Value Date Recorded Sex Assigned at Not on file Legal Sex Male 5:12 AM UI DEVELOPER Gender Identity Not on file Sexual [...] on filedocumented in this encounter Care Teams Half Sole Fitter Relationship Specialty Start Date End Date Greg Arnold MD PCP - General Family Practice 11/04/23 02/17/24 documented as of this encounter
--- OUTSIDE RECORDS SUMMARY | 2025-04-14 16:21 | XMS_ITS | Encounter Summary ---
Author Organization [facility] Address [address] [place] [address] Care Team Providers Care Investigator Fraud Name Role Phone Greg Arnold MD Primary Care Provider [phone] Encounter Details Date Type Department Care Team (Late st Contact Info) Description 05/15/2005 Outpatient Historical [facility] Primary Care - [address] [place] [address] Azam Falcon MD NO ADDRESS ON FILE Social History Tobacco Use Types Packs/Day Years Used Date Smoking Tobacco: Never Assessed Sex and Gender Information Value Date Recorded Sex Assigned at Not on file Legal Sex Male 5:12 AM DESK MONITOR Gender Identity Not on file Sexual Orientation Not on file documented as of this encounter Plan of Treatment Not on file documented as of this encounter Visit Diagnoses Not on filedocumented in this encounter Care Teams Investigator Fraud Relationship Specialty Start Date End Date Greg Arnold MD PCP - General Family Practice 11/04/23 02/17/24 documented as of this encounter
--- OUTSIDE RECORDS SUMMARY | 2025-04-14 16:22 | XMS_ITS | Encounter Summary ---
Author Organization [facility] Address 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 LAST VISIT: PCP: maria eugenia. ALTERNATIVE PHONE NUMBER: [phone] WHO CALLED: Patient called. CURRENT ALLERGY LIST: NO KNOWN ALLERGIES PHARMACY NUMBER: [phone] PROBLEMS: achy all over , tried ziacam, [...] 12:02 pm. az Electronically Signed by: Az aM on Tuesday, August 07, 2007 documented in this encounter Plan of Treatment Not on file documented as of this encounter Visit Diagnoses Not on filedocumented in this encounter Care Teams Gas Appliance Servicer Helper Relationship Specialty Start Date End Date Greg Arnold MD PCP - General Family Practice 11/04/23 02/17/24 documented as of this encounter
--- OUTSIDE RECORDS SUMMARY | 2025-04-14 16:22 | XMS_ITS | Encounter Summary ---
Author Organization [facility] Address [address] [place] [address] Care Team Providers Care General Purchasing Agent Name Role Phone Greg Arnold MD Primary Care Provider [phone] Encounter Details Date Type Department Care Team (Late st Contact Info) Description 10/02/2007 Outpatient Historical [facility] Care - [address] [address] Azam Falcon MD NO ADDRESS ON FILE Social History Tobacco Use Types Packs/Day Years Used Date Smoking Tobacco: Never Assessed Sex and Gender Information Value Date Recorded Sex Assigned at Not on file Legal Sex Male 5:12 AM STATE MANAGER Gender Identity Not on file Sexual [...] filedocumented in this encounter Care Teams General Purchasing Agent Relationship Specialty Start Date End Date Greg Arnold MD PCP - General Family Practice 11/04/23 02/17/24 documented as of this encounter
--- OUTSIDE RECORDS SUMMARY | 2025-04-14 16:22 | XMS_ITS | Encounter Summary ---
Author Organization [facility] Address [address] [place] [address] Care Team Providers Care Russian History Professor Name Role Phone Greg Arnold MD Primary Care Provider [phone] Encounter Details Date Type Department Care Team (Late st Contact Info) Description 10/02/2007 Outpatient Historical [facility] Primary Care - [address] [place] [address] Azam Falcon MD NO ADDRESS ON FILE Social History Tobacco Use Types Packs/Day Years Used Date Smoking Tobacco: Never Assessed Sex and Gender Information Value Date Recorded Sex Assigned at Not on file Legal Sex Male 5:12 AM STOREROOM CLERK Gender Identity Not on file Sexual Orientation Not on file documented as of this encounter Plan of Treatment Not on file documented as of this encounter Visit Diagnoses Not on filedocumented in this encounter Care Teams Russian History Professor Relationship Specialty Start Date End Date Greg Arnold MD PCP - General Family Practice 11/04/23 02/17/24 documented as of this encounter
--- OUTSIDE RECORDS SUMMARY | 2025-04-14 16:22 | XMS_ITS | Encounter Summary ---
Author Organization [facility] Address [address] [place] [address] Care Team Providers Care Editor Greeting Card Name Role Phone Greg Arnold MD Primary Care Provider [phone] Encounter Details Date Type Department Care Team (Late st Contact Info) Description 09/23/2007 Orders Only [facility] Primary Care - [facility] [address] [place] [address] [address] [place] [address] Estella Manning MD [address] [place] [address] [address] [place] [address] Social History Tobacco Use Types Packs/Day Years Used Date Smoking Tobacco: Never Assessed Sex and Gender Information Value Date Recorded Sex Assigned at Not on file Legal Sex Male 5:12 AM SYSTEMS SPECIALIST Gender Identity Not on file Sexual Orientation Not on file documented as of this encounter Progress Notes * Estella Manning MD - 11/06/2007 11:12 AM CDT TIME:02:55 pm PATIENT`S HOME PHONE: PATIENT`S WORK PHONE: PATIENT`S INSURANCE: [facility] WHO TOOK THE CALL: Meggan Cowan A GENERAL INFORMATION PATIENT STATUS: Established Patient. LAST VISIT: 09/11/07 PCP: maria eugenia. ALTERNATIVE PHONE NUMBER: [phone] WHO CALLED: Patient called. CURRENT ALLERGY LIST: NO KNOWN ALLERGIES PHARMACY NUMBER: [phone] PROBLEMS: PINK EYE: Patient complains of pink [...] on filedocumented in this encounter Care Teams Editor Greeting Card Relationship Specialty Start Date End Date Greg Arnold MD PCP - General Family Practice 11/04/23 02/17/24 documented as of this encounter
--- OUTSIDE RECORDS SUMMARY | 2025-04-14 16:22 | XMS_ITS | Encounter Summary ---
Author Organization [facility] Address [address] [place] [address] Care Team Providers Care Multimedia Specialist Name Role Phone Greg Arnold MD Primary Care Provider [phone] Encounter Details Date Type Department Care Team (Latest Contact Info) Description 04/16/2007 Outpatient Historical [facility] Primary Care - [address] [place] [address] Azam Falcon MD NO ADDRESS ON FILE Other Abnormal Glucose (Primary Dx) Social History Tobacco Use Types Packs/Day Years Used Date Smoking Tobacco: Never Assessed Sex and Gender Information Value Date Recorded Sex Assigned at Not on file Legal Sex Male 5:12 AM LOG DRIVER Gender Identity Not on file Sexual Orientation Not on file documented as of this encounter Plan of Treatment Not on file documented as of this encounter Procedures Procedure Name Priority Date/Time Associated Diagnosis Comments HEMOGLOBIN A1C Routine 04/16/2007 5:24 PM LOG DRIVER GLUCOSE LEVEL Routine 04/16/2007 5:24 PM LOG DRIVER documented in this encounter Results * HEMOGLOBIN A1C (04/16/2007 5:24 PM LOG DRIVER) HEMOGLOBIN A1C 6.1 4.1 - 6.1 % of Hgb INTERFACE SYSTEM GLUCOSE, MEAN BLOOD 140 mg/dL INTERFACE SYSTEM 04/16/2007 5:24 PM LOG DRIVER us Azam Falcon MD CHEMISTRY ORDERABLES Edited INTERFACE SYSTEM Refer to clinic/hospital department * GLUCOSE LEVEL (04/16/2007 5:24 PM LOG DRIVER) GLUCOSE 86 65 - 99 mg/dL INTERFACE SYSTEM 04/16/2007 5:24 PM LOG DRIVER us Azam Falcon MD CHEMISTRY ORDERABLES Edited INTERFACE SYSTEM Refer to clinic/hospital department documented in this encounter Visit Diagnoses Diagnosis Other abnormal glucose- Primary documented in this encounter Care Teams Multimedia Specialist Relationship Specialty Start Date End Date Greg Arnold MD PCP - General Family Practice 11/04/23 02/17/24 documented as of this encounter
--- OUTSIDE RECORDS SUMMARY | 2025-04-14 16:22 | XMS_ITS | Encounter Summary ---
Author Organization [facility] Address [address] [place] [address] Care Team Providers Care Seat Cover Cutter Name Role Phone Greg Arnold MD Primary Care Provider [phone] Encounter Details Date Type Department Care Team (Late st Contact Info) Description 09/11/2007 Orders Only [facility] Primary Care - [address] [place] [address] Azam Falcon MD NO ADDRESS ON FILE Social History Tobacco Use Types Packs/Day Years Used Date Smoking Tobacco: Never Assessed Sex and Gender Information Value Date Recorded Sex Assigned at Not on file Legal Sex Male 5:12 AM MANAGER DEPARTMENT Gender Identity Not on file Sexual Orientation Not on file documented as of this encounter Progress Notes * Azam Falcon MD - 11/06/2007 10:01 AM CDT TIME:10:11 am PATIENT`S HOME PHONE: PATIENT`S WORK PHONE: PATIENT`S INSURANCE: [employer] WHO TOOK THE CALL: Meggan Cowan A GENERAL INFORMATION PATIENT STATUS: Established Patient. LAST VISIT: 07/23/07 PCP: maria eugenia. ALTERNATIVE PHONE NUMBER: [phone] WHO CALLED: Patient called. CURRENT ALLERGY LIST: [...] 9:56 AM CDT TEMPERATURE: 98??f Oral WEIGHT: [id number] BLOOD PRESSURE: 130/90 Right Arm Sitting NURSE [...] NEW PRESCRIPTION, 09/11/2007. LAB ORDERS: Order number: [id number] Test Ordered: CHLAMYDIA & GC PROBE [id number] Electronically Signed by: Azam Falcon MD on August documented in this encounter Plan of Treatment Not on file documented as of this encounter Visit Diagnoses Not on filedocumented in this encounter Care Teams Seat Cover Cutter Relationship Specialty Start Date End Date Greg Arnold MD PCP - General Family Practice 11/04/23 02/17/24 documented as of this encounter
--- OUTSIDE RECORDS SUMMARY | 2025-04-14 16:22 | XMS_ITS | Encounter Summary ---
Author Organization [facility] Address 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
--- OUTSIDE RECORDS SUMMARY | 2025-04-14 16:22 | XMS_ITS | Encounter Summary ---
Author Organization [facility] Address [address] [place] [address] Care Team Providers Care Design Manager Name Role Phone Greg Arnold MD Primary Care Provider [phone] Encounter Details Date Type Department Care Team (Late st Contact Info) Description 01/07/2007 Outpatient Historical [facility] Primary Care - [address] [place] [address] Azam Falcon MD NO ADDRESS ON FILE Social History Tobacco Use Types Packs/Day Years Used Date Smoking Tobacco: Never Assessed Sex and Gender Information Value Date Recorded Sex Assigned at Not on file Legal Sex Male 5:12 AM DISPATCHER RADIOACTIVE WASTE DISPOSAL Gender Identity Not on file Sexual Orientation Not on file documented as of this encounter Plan of Treatment Not on file documented as of this encounter Visit Diagnoses Not on filedocumented in this encounter Care Teams Design Manager Relationship Specialty Start Date End Date Greg Arnold MD PCP - General Family Practice 11/04/23 02/17/24 documented as of this encounter
--- OUTSIDE RECORDS SUMMARY | 2025-04-14 16:22 | XMS_ITS | Encounter Summary ---
Author Organization [facility] Address [address] [place] [address] Care Team Providers Care Hanging Flags Decorator Name Role Phone Greg Arnold MD Primary Care Provider [phone] Encounter Details Date Type Department Care Team (Latest Contact Info) Description 11/07/2006 Outpatient Historical [facility] Care - [address] [place] [address] Azam Falcon MD NO ADDRESS ON FILE Special Screening for Malignant Neoplasm of Prostate (Primary Dx) Social History Tobacco Use Types Packs/Day Years Used Date Smoking Tobacco: Never Assessed Sex and Gender Information Value Date Recorded Sex Assigned at Not on file Legal Sex Male 5: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
--- OUTSIDE RECORDS SUMMARY | 2025-04-14 16:22 | XMS_ITS | Encounter Summary ---
Author Organization [facility] Address [address] [place] [address] Care Team Providers Care Metal Riveter Name Role Phone Greg Arnold MD Primary Care Provider [phone] Encounter Details Date Type Department Care Team (Late st Contact Info) Description 07/23/2007 Outpatient Historical [facility] Primary Care - 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
--- OUTSIDE RECORDS SUMMARY | 2025-04-14 16:22 | XMS_ITS | Encounter Summary ---
Author Organization [facility] Address [address] [place] [address] Care Team Providers Care Advertising Solicitor Name Role Phone Greg Arnold MD Primary Care Provider [phone] Encounter Details Date Type Department Care Team (Late st Contact Info) Description 07/23/2007 Outpatient Historical [facility] Primary Care - [facility] [address] [facility] [address] [place] [address] Estella Manning MD [address] [place] [address] [address] [place] [address] Social History Tobacco Use Types Packs/Day Years Used Date Smoking Tobacco: Never Assessed Sex and Gender Information Value Date Recorded Sex Assigned at Not on file Legal Sex Male 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
--- OUTSIDE RECORDS SUMMARY | 2025-04-14 16:22 | XMS_ITS | Encounter Summary ---
Author Organization [facility] Address 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
--- OUTSIDE RECORDS SUMMARY | 2025-04-14 16:22 | XMS_ITS | Encounter Summary ---
Author Organization [facility] Address [address] [place] [address] Care Team Providers Care 6Th Grade Teacher Name Role Phone Greg Arnold MD [...] on file Legal Sex Male 5:12 AM ASSURANCE ASSOCIATE Gender Identity Not on file Sexual [...] INTERFACE SYSTEM - 09/20/2008 2:08 PM CDT [facility] [address] [place] [address] [email or web address] Stress Study Patient: Charles Purcell MRN: Study ID: ADULT STRESS ECH Gender: Tavares : 1950 Age: 58 years Race: 1 Room: Bed: Height: Study Date: September 20, 2008 Patient status: Outpatient Weight: Access. #: [id number] POC: Ordering: Shasha Attending MD: Shasha Admitting [...] 14:05:46 Procedure Note Provider, Historical - 09/20/2008 [id number] [place] [address] [email or web address] Stress Study Patient: Charles Purcell MRN: Study ID: ADULT STRESS ECH Gender: Tavares : 1950 Age: 58 years Race: 1 Room: Bed: Height: Study Date: September 20, 2008 Patient status: Outpatient Weight: Access. #: [id number] POC: Ordering: Shasha Attending MD: Shasha Admitting [...] unspecified documented in this encounter Care Teams 6Th Grade Teacher Relationship Specialty Start Date End Date Greg Arnold MD PCP - General Family Practice 11/04/23 02/17/24 documented as of this encounter
--- OUTSIDE RECORDS SUMMARY | 2025-04-14 16:22 | XMS_ITS | Encounter Summary ---
Author Organization [facility] Address 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
--- OUTSIDE RECORDS SUMMARY | 2025-04-14 16:22 | XMS_ITS | Encounter Summary ---
Author Organization [facility] Address [address] [place] [address] Care Team Providers Care Transmission Line Engineer Name Role Phone Greg Arnold MD Primary Care Provider [phone] Encounter Details Date Type Department Care Team (Late st Contact Info) Description 12/23/2006 Orders Only [facility] Primary Care - [address] [place] [address] Azam Falcon MD NO ADDRESS ON FILE Social History Tobacco Use Types Packs/Day Years Used Date Smoking Tobacco: Never Assessed Sex and Gender Information Value Date Recorded Sex Assigned at Not on file Legal Sex Male 5:12 AM ADMINISTRATIVE SERVICES MANAGER Gender Identity Not on file Sexual Orientation Not on file documented as of this encounter Progress Notes * Azam Falcon MD - 10/21/2007 12:27 PM CDT TIME:10:25 am PATIENT`S HOME PHONE: PATIENT`S WORK PHONE: PATIENT`S INSURANCE: [employer] WHO TOOK THE CALL: Thalia Garcia M GENERAL INFORMATION PATIENT STATUS: Established Patient. PCP: pc. [place] PHONE NUMBER: [phone] WHO CALLED: Patient called. PHARMACY NUMBER: [phone] SECTION 1: REQUESTED ACTION peisgm 12/23/06 at [...] filedocumented in this encounter Care Teams Transmission Line Engineer Relationship Specialty Start Date End Date Greg Arnold MD PCP - General Family Practice 11/04/23 02/17/24 documented as of this encounter
--- OUTSIDE RECORDS SUMMARY | 2025-04-14 16:22 | XMS_ITS | Encounter Summary ---
Author Organization [facility] Address [address] [place] [address] Care Team Providers Care Refueling Rampman Name Role Phone Greg Arnold MD Primary Care Provider Encounter Details Date Type Department Care Team (Latest Contact Info) Description 09/11/2007 Outpatient Historical [facility] Primary Care - [address] [place] [address] Azam Falcon MD NO ADDRESS ON FILE Unspecified Nongonococcal Urethritis (KYLAH) Social History Tobacco Use Types Packs/Day Years Used Date Smoking Tobacco: Never Assessed Sex and Gender Information Value Date Recorded Sex Assigned at Not on file Legal Sex Male 5:12 AM PRICING SPECIALIST Gender Identity Not on file Sexual Orientation Not on file documented as of this encounter Plan of Treatment Not on file documented as of this encounter Procedures Procedure Name Priority Date/Time Associated Diagnosis Comments CHLAMYDIA/N. GONORRHOEAE, DNA Routine 09/11/2007 9:33 PM CDT documented in this encounter Results * CHLAMYDIA/N. GONORRHOEAE, DNA (09/11/2007 9:33 PM CDT) NEISSERIA GONORRHOEAE DNA NOT DETECTED NOT DETECTED [facility] Comment: Lab test performed by: [facility] [id number] [place] [id number] ROSINA BALDWIN MD CHLAMYDIA TRACHOMATIS DNA NOT DETECTED NOT DETECTED [facility] Specimen of unknown material (specimen) (Urethral) 09/11/2007 9:33 PM CDT 09/11/2007 9:57 PM CDT us Azam Falcon MD BODY FLUIDS AND STOOLS Final Result Performing Organization Address City/State/[facility] Co de Phone Number [facility] [address] [place] [address] documented in this encounter Visit Diagnoses Diagnosis Unspecified nongonococcal urethritis (KYLAH) documented in this encounter Care Teams Refueling Rampman Relationship Specialty Start Date End Date Greg Arnold MD PCP - General Family Practice 11/04/23 02/17/24 documented as of this encounter
--- OUTSIDE RECORDS SUMMARY | 2025-04-14 16:22 | XMS_ITS | Encounter Summary ---
Author Organization [facility] Address 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 Advised treatment and additional testing. Advised of future risk of spread. MEDICATIONS: VALTREX ORAL TABLET 1 GM, 1 Two Times A Day, 20 Dispensed, status: NEW PRESCRIPTION, 01/07/2007. LAB ORDERS: Order number: [id number] Test Ordered: RPR 5100 Order number: [id number] Test Ordered: CHLAMYDIA/N. GONORRHOEAE, AMPLIFIED DNA 2081 Electronically Signed by: Azam Falcon MD on Sunday, January 14, 2007 documented in this encounter Plan of Treatment Not on file documented as of this encounter Visit Diagnoses Not on filedocumented in this encounter Care Teams Bulk Coolers Installer Relationship Specialty Start Date End Date Greg Arnold MD PCP - General Family Practice 11/04/23 02/17/24 documented as of this encounter
--- OUTSIDE RECORDS SUMMARY | 2025-04-14 16:22 | XMS_ITS | Encounter Summary ---
Author Organization [facility] Address [address] [place] [address] Care Team Providers Care Junior High School Teacher Name Role Phone Greg Arnold MD Primary Care Provider [phone] Encounter Details Date Type Department Care Team (Late st Contact Info) Description 04/16/2007 Orders Only [facility] Primary Care - [address] [place] [address] Azam Falcon MD NO ADDRESS ON FILE Social History Tobacco Use Types Packs/Day Years Used Date Smoking Tobacco: Never Assessed Sex and Gender Information Value Date Recorded Sex Assigned at Not on file Legal Sex Male 5:12 AM MASTER PLANNER Gender Identity Not on file Sexual Orientation Not on file documented as of this encounter Progress Notes * Azam Falcon MD - 10/15/2007 6:45 PM CDT TIME:09:14 am PATIENT`S HOME PHONE: PATIENT`S WORK PHONE: PATIENT`S INSURANCE: [employer] WHO TOOK THE CALL: Leticia Calles W GENERAL INFORMATION PATIENT STATUS: Established Patient. LAST VISIT: 01-07-07 PCP: Ezekiel. ALTERNATIVE PHONE NUMBER: [phone] WHO CALLED: Patient called. CURRENT ALLERGY LIST: [...] appointment: 04-16-07 3:30p...radha Electronically Signed by: Marcela oDyle on April * Azam Falcon MD - [...] he is diabetic. 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 The nature of this was discussed with the patient. We talked about adjusting his footwear to protect the area. If he does not improve, he will see a striker out. RETURN VISIT : Patient instructed to return in 6 months. Electronically Signed by: Azam Falcon MD on Saturday, May 12, 2007 documented in this encounter Plan of Treatment Not on file documented as of this encounter Visit Diagnoses Not on filedocumented in this encounter Care Teams Junior High School Teacher Relationship Specialty Start Date End Date Greg Arnold MD PCP - General Family Practice 11/04/23 02/17/24 documented as of this encounter
--- OUTSIDE RECORDS SUMMARY | 2025-04-14 16:22 | XMS_ITS | Encounter Summary ---
Author Organization [facility] Address 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
--- OUTSIDE RECORDS SUMMARY | 2025-04-14 16:22 | XMS_ITS | Encounter Summary ---
Author Organization [facility] Address [address] [place] [address] Care Team Providers Care Customer Experience Retail Clerk Name Role Phone Greg Arnold MD Primary Care Provider [phone] Encounter Details Date Type Department Care Team (Late st Contact Info) Description 11/07/2006 Orders Only [facility] Primary Care - [address] [place] [address] Azam Falcon MD NO ADDRESS ON FILE Social History Tobacco Use Types Packs/Day Years Used Date Smoking Tobacco: Never Assessed Sex and Gender Information Value Date Recorded Sex Assigned at Not on file Legal Sex Male 5:12 AM FUNERAL HOME DIRECTOR Gender Identity Not on file Sexual Orientation Not on file documented as of this encounter Progress Notes * Azam Falcon MD - 10/21/2007 3:13 PM CDT TEMPERATURE: 97.6??f Oral WEIGHT: [id number] BLOOD PRESSURE: 140/90 Right Arm Sitting NURSE [...] BENIGN Well controlled. LAB ORDERS: Order number: [id number] Test Ordered: BASIC METABOLIC PANEL & GFR 1607 V70.0-ROUTINE GENERAL MEDICAL EXAMINATION He needs weight reduction and a greater level of exercise. This was discussed. Routine screening was discussed. He is up-to-date with a colonoscopy 3 years ago with negative findings and with his family history a 10 year follow-up would be recommended at this time. LAB ORDERS: Order number: [id number] Test Ordered: LIPID PANEL 1078 V76.44-SCREEN FOR CA OF PROSTATE Check PSA. LAB ORDERS: Order number: [id number] Test Ordered: PSA, TOTAL 1002 078.19-WART Lesions were treated with liquid nitrogen on the extremities and trunk. LAB ORDERS: Order number: [id number] Test Ordered: DESTRUCTION BENIGN LESIONS TO 14 [id number] Electronically Signed by: Azam Falcon MD on Sunday, November 12, 2006 documented in this encounter Plan of Treatment Not on file documented as of this encounter Visit Diagnoses Not on filedocumented in this encounter Care Teams Customer Experience Retail Clerk Relationship Specialty Start Date End Date Greg Arnold MD PCP - General Family Practice 11/04/23 02/17/24 documented as of this encounter
--- OUTSIDE RECORDS SUMMARY | 2025-04-14 16:22 | XMS_ITS | Encounter Summary ---
Author Organization [facility] Address 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 LAST VISIT: 11-07-06 PCP: Ezekiel. ALTERNATIVE PHONE NUMBER: [phone] WHO CALLED: Patient called. CURRENT ALLERGY LIST: [...] on filedocumented in this encounter Care Teams Holder Pile Driving Relationship Specialty Start Date End Date Greg Arnold MD PCP - General Family Practice 11/04/23 02/17/24 documented as of this encounter
--- OUTSIDE RECORDS SUMMARY | 2025-04-14 16:22 | XMS_ITS | Encounter Summary ---
Author Organization [facility] Address [address] [place] [address] Care Team Providers Care Pharmacy Intern Name Role Phone Greg Arnold MD Primary Care Provider [phone] Encounter Details Date Type Department Care Team (Latest Contact Info) Description 08/21/1999 Outpatient Historical [facility] Azam Falcon MD NO ADDRESS ON FILE Fam hx-cardiovas dis NEC (Primary Dx) Social History Tobacco Use Types Packs/Day Years Used Date Smoking Tobacco: Never Assessed Sex and Gender Information Value Date Recorded Sex Assigned at Not on file Legal Sex Male 5:12 AM MEDICAL COLLECTIONS Gender Identity Not on file Sexual Orientation Not on file documented as of this encounter Plan of Treatment Not on file documented as of this encounter Visit Diagnoses Diagnosis Fam hx-cardiovas dis NEC- Primary Family history of other cardiovascular diseases documented in this encounter Care Teams Pharmacy Intern Relationship Specialty Start Date End Date Greg Arnold MD PCP - General Family Practice 11/04/23 02/17/24 documented as of this encounter
--- OUTSIDE RECORDS SUMMARY | 2025-04-14 16:22 | XMS_ITS | Encounter Summary ---
Author Organization [facility] Address [address] [place] [address] Care Team Providers Care Convenience Store Clerk Name Role Phone Greg Arnold MD Primary Care Provider [phone] Encounter Details Date Type Department Care Team (Late st Contact Info) Description 10/16/2007 Orders Only [facility] Primary Care - [address] [place] [address] Azam Falcon MD NO ADDRESS ON FILE Social History Tobacco Use Types Packs/Day Years Used Date Smoking Tobacco: Never Assessed Sex and Gender Information Value Date Recorded Sex Assigned at Not on file Legal Sex Male 5:12 AM SILK SPOTTER Gender Identity Not on file Sexual Orientation Not on file documented as of this encounter Plan of Treatment Not on file documented as of this encounter Visit Diagnoses Not on filedocumented in this encounter Care Teams Convenience Store Clerk Relationship Specialty Start Date End Date Greg Arnold MD PCP - General Family Practice 11/04/23 02/17/24 documented as of this encounter
--- OUTSIDE RECORDS SUMMARY | 2025-04-14 16:22 | XMS_ITS | Encounter Summary ---
Author Organization [facility] Address [address] [place] [address] Care Team Providers Care Member Services Coordinator Name Role Phone Greg Arnold MD Primary Care Provider [phone] Encounter Details Date Type Department Care Team (Late st Contact Info) Description 08/31/2007 Orders Only [facility] Primary Care - [address] [address] Azam Falcon MD NO ADDRESS ON FILE Social History Tobacco Use Types Packs/Day Years Used Date Smoking Tobacco: Never Assessed Sex and Gender Information Value Date Recorded Sex Assigned at Not on file Legal Sex Male 5:12 AM FORESTRY AID Gender Identity Not on file Sexual Orientation Not on file documented as of this encounter Progress Notes * Azam Falcon MD - 11/05/2007 8:17 PM CDT TIME:11:19 am PATIENT`S HOME PHONE: PATIENT`S WORK PHONE: PATIENT`S INSURANCE: [employer] WHO TOOK THE CALL: Leticia Calles W GENERAL INFORMATION PATIENT STATUS: Established Patient. LAST VISIT: 07-23-07 PCP: Ezekiel. ALTERNATIVE PHONE NUMBER: [phone] WHO CALLED: Patient called. CURRENT ALLERGY LIST: NO KNOWN ALLERGIES PHARMACY NUMBER: [phone] PROBLEMS: rectal itching x 4days. has had problem in past and cream rx'd SECTION 1: REQUESTED ACTION frankw 08/31/07 at 11:21 am: MEDICATION REQUEST: Patient requests a refill. MEDICATIONS: TRIAMCINOLONE ACETONIDE EXTERNAL CREAME 0.1 %, apply bid, 30 Dispensed, status: NEW PRESCRIPTION, 04/16/2007, Comment: called to [phone]/ leticia. .....leticia DOCTOR`S RESPONSE: tangela 08/31/07 at [...] on filedocumented in this encounter Care Teams Member Services Coordinator Relationship Specialty Start Date End Date Greg Arnold MD PCP - General Family Practice 11/04/23 02/17/24 documented as of this encounter
--- OUTSIDE RECORDS SUMMARY | 2025-04-14 16:22 | XMS_ITS | Encounter Summary ---
Author Organization [facility] Address [address] [place] [address] Care Team Providers Care Cow Puncher Name Role Phone Greg Arnold MD Primary Care Provider [phone] Encounter Details Date Type Department Care Team (Late st Contact Info) Description 01/07/2007 Outpatient Historical [facility] Primary Care - [address] [place] [address] Azam Falcon MD NO ADDRESS ON FILE Social History Tobacco Use Types Packs/Day Years Used Date Smoking Tobacco: Never Assessed Sex and Gender Information Value Date Recorded Sex Assigned at Not on file Legal Sex Male 5:12 AM GLOBAL LOGISTICS MANAGER Gender Identity Not on file Sexual Orientation Not on file documented as of this encounter Plan of Treatment Not on file documented as of this encounter Visit Diagnoses Not on filedocumented in this encounter Care Teams Cow Puncher Relationship Specialty Start Date End Date Greg Arnold MD PCP - General Family Practice 11/04/23 02/17/24 documented as of this encounter
--- OUTSIDE RECORDS SUMMARY | 2025-04-14 16:22 | XMS_ITS | Encounter Summary ---
Author Organization [facility] Address [address] [place] [address] Care Team Providers Care Peoplesoft Financials Consultant Name Role Phone Greg Arnold MD Primary Care Provider [phone] Encounter Details Date Type Department Care Team (Late st Contact Info) Description 04/16/2007 Outpatient Historical [facility] Primary Care - [address] [place] [address] Azam Falcon MD NO ADDRESS ON FILE Social History Tobacco Use Types Packs/Day Years Used Date Smoking Tobacco: Never Assessed Sex and Gender Information Value Date Recorded Sex Assigned at Not on file Legal Sex Male 5:12 AM MANAGER ASSET MANAGEMENT Gender Identity Not on file Sexual Orientation Not on file documented as of this encounter Plan of Treatment Not on file documented as of this encounter Visit Diagnoses Not on filedocumented in this encounter Care Teams Peoplesoft Financials Consultant Relationship Specialty Start Date End Date Greg Arnold MD PCP - General Family Practice 11/04/23 02/17/24 documented as of this encounter
--- OUTSIDE RECORDS SUMMARY | 2025-04-14 16:22 | XMS_ITS | Encounter Summary ---
Author Organization [facility] Address 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
--- OUTSIDE RECORDS SUMMARY | 2025-04-14 16:22 | XMS_ITS | Encounter Summary ---
Author Organization [facility] Address 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
--- OUTSIDE RECORDS SUMMARY | 2025-04-14 16:22 | XMS_ITS | Encounter Summary ---
Author Organization [facility] Address 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
--- OUTSIDE RECORDS SUMMARY | 2025-04-14 16:22 | XMS_ITS | Encounter Summary ---
Author Organization [facility] Address [address] [place] [address] Care Team Providers Care Senior Chemical Process Engineer Name Role Phone Greg Arnold MD Primary Care Provider Encounter Details Date Type Department Care Team (Late st Contact Info) Description 09/11/[address] 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
--- OUTSIDE RECORDS SUMMARY | 2025-04-14 16:22 | XMS_ITS | Encounter Summary ---
Author Organization [facility] Address [address] [place] [address] Care Team Providers Care Secondary School Principal Name Role Phone Greg Arnold MD Primary Care Provider [phone] Encounter Details Date Type Department Care Team (Latest Contact Info) Description 01/07/2007 Outpatient Historical [facility] Primary Care - [address] [place] [address] Azam Falcon MD NO ADDRESS ON FILE Unspecified Genital Herpes (Primary Dx) Social History Tobacco Use Types Packs/Day Years Used Date Smoking Tobacco: Never Assessed Sex and Gender Information Value Date Recorded Sex Assigned at Not on file 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 GONORRHOEAE, DNA (01/07/2007 2:13 PM CDT) CHLAMYDIA TRACHOMATIS DNA NOT DETECTED NOT DETECTED INTERFACE SYSTEM NEISSERIA GONORRHOEAE DNA NOT DETECTED NOT DETECTED INTERFACE SYSTEM Comment: Lab test performed by: [id number] [id number] [address] ROSINA BALDWIN 01/07/2007 2:13 PM CDT Azam Falcon MD BODY FLUIDS AND STOOLS Edited Performing Organization Address City/[facility] Co de Phone Number INTERFACE SYSTEM Refer to clinic/hospital department documented in this encounter Visit Diagnoses Diagnosis Genital herpes, unspecified- Primary documented in this encounter Care Teams Secondary School Principal Relationship Specialty Start Date End Date Greg Arnold MD PCP - General Family Practice 11/04/23 02/17/24 documented as of this encounter
--- OUTSIDE RECORDS SUMMARY | 2025-04-14 16:22 | XMS_ITS | Encounter Summary ---
Author Organization [facility] Address 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
--- OUTSIDE RECORDS SUMMARY | 2025-04-14 16:22 | XMS_ITS | Encounter Summary ---
Author Organization [facility] Address [address] [place] [address] Care Team Providers Care Wet Room Supervisor Name Role Phone Greg Arnold MD Primary Care Provider [phone] Encounter Details Date Type Department Care Team (Late st Contact Info) Description 04/11/[address] 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
--- OUTSIDE RECORDS SUMMARY | 2025-04-14 16:22 | XMS_ITS | Encounter Summary ---
Author Organization [facility] Address 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
--- OUTSIDE RECORDS SUMMARY | 2025-04-14 16:22 | XMS_ITS | Encounter Summary ---
Author Organization [facility] Address [address] [place] [address] Care Team Providers Care Renewable Energy Technician Name Role Phone Greg Arnold MD Primary Care Provider Encounter Details Date Type Department Care Team (Late st Contact Info) Description 05/02/2000 Outpatient Historical [facility] Primary Care - [address] [place] [address] Azam Falcon MD NO ADDRESS ON FILE Social History Tobacco Use Types Packs/Day Years Used Date Smoking Tobacco: Never Assessed Sex and Gender Information Value Date Recorded Sex Assigned at Not on file Legal Sex Male 5:12 AM HIDE EXAMINER Gender Identity Not on file Sexual Orientation Not on file documented as of this encounter Plan of Treatment Not on file documented as of this encounter Visit Diagnoses Not on filedocumented in this encounter Care Teams Renewable Energy Technician Relationship Specialty Start Date End Date Grge Arnold MD PCP - General Family Practice 11/04/23 02/17/24 documented as of this encounter
[2025-04-14 17:48] LABS: Hematocrit 40.6 % (42.0-52.0); Hemoglobin 12.8 g/dL (14.0-18.0); Immature Granulocyte Percent A 0.3 % (0-0.5); Lymphocytes Absolute Auto 2.08 K/mm3 (0.9-3.2); Mean Corpuscular HGB Conc 31.5 g/dl (32-36); Mean Corpuscular Hemoglobin 30.0 pg (26-34); Mean Corpuscular Volume 95.3 fl (80-100); Nucleated Red Blood Cells Absolute Auto 0.000 K/mm3 (0.0-0.012); Nucleated Red Blood Cells Perc 0.0 % (0.0-0.2); Platelet Count Result 228 k/mm3 (150-375); Red Blood Count 4.26 M/mm3 (4.6-6.20); White Blood Count 6.6 K/mm3 (4.5-10.0)
[2025-04-14 17:51] LABS: Add Urine Microscopic? NO; Appearance Urine Clear (Clear); Glucose Urine UA 2+ mg/dL (Negative); Leukocyte Esterase Ur Negative LEU/UL (Negative); Nitrate Urine Negative (Negative); Specific Grav Ur 1.021 (1.001-1.035)
[2025-04-14 18:05] LABS: Alanine Aminotransferase 26 U/L (6-50); Albumin Level 4.4 g/dL (3.5-5.1); Alkaline Phosphatase 31 U/L (38-126); Anion Gap 8 mmol/L (4-12); Aspartate Amino Transferase 29 U/L (17-59); Bilirubin,Total 0.5 mg/dL (0.2-1.3); Blood Urea Nitrogen 16 mg/dL (9-20); Calcium 9.3 mg/dL (8.4-10.2); Carbon Dioxide 28 mmol/L (22-30); Chloride 102 mmol/L (98-107); Estimated CRCL calculation 67 ml/min; Estimated Glomerular Filt Rate > 60; Glucose 127 mg/dL (65-110); Potassium 4.0 mmol/L (3.4-5.0); Sodium 138 mmol/L (137-145); Total Protein 7.5 g/dL (6.3-8.2)
[2025-04-14 18:16] LABS: Cannabinoid Screen Urine Negative (Negative)
--- NOTE | 2025-04-14 18:22 | ED.GENADULT ---
HPI - General Adult General Chief complaint: Extremity Injury, Lower Stated complaint: swelling lower extremities Time Seen by Provider: 04/14/25 16:17 History of Present Illness HPI narrative: Patient is a 74-year-old male who presents ER with concern for memory issues by family and friends. Over last month he has had 4 falls which is abnormal for him. No evidence of head trauma. He describes the 1st fall as walking and hitting his head on the door. He cannot fully describe the other falls but reports that is due to the fact that he gets up in the middle the night the lights will turn off due to motion sensors known he may fall. A correction officer supervisor reports that he has been having more issues recently with managing some of their spread sheets and also with turning on his computer and printer. He has also knocked a mirror off of his car. Patient was recently started on Ozempic 6 weeks ago. Related Data Home Medications ?Medication ?Instructions ?Recorded ?Confirmed ?Last Taken ?Type cholecalciferol (vitamin D3) 125 125 mcg PO DAILY 11/10/24 01/19/25 Unknown History mcg (5,000 unit) capsule fluticasone propionate 50 See Rx Instructions .Route 11/10/24 01/19/25 Unknown History mcg/actuation nasal .COMPLEX PRN spray,suspension loratadine 10 mg tablet 10 mg PO DAILY PRN 11/10/24 01/19/25 Unknown History tamsulosin 0.4 mg capsule (Flomax) 0.8 mg PO DAILY 11/10/24 01/19/25 Unknown History Allergies Allergy/AdvReac Type Severity Reaction Status Date / Time No Known Allergies Allergy Mild Verified 01/19/25 14:26 Review of Systems Review of Systems: All systems reviewed & are unremarkable except as noted in HPI and below Constitutional: Constitutional: Reports no additional constitutional complaints Cardiovascular: Cardiovascular: Reports no additional cardiovascular complaints Respiratory: Respiratory: Reports no additional respiratory complaints Gastrointestinal: Gastrointestinal: Reports no additional gastrointestinal complaints Musculoskeletal: Musculoskeletal: Reports no additional musculoskeletal complaints [facility] Past Medical History Medical History Depression, major, in partial remission Essential hypertension Type 2 diabetes mellitus Anxiety Hyperlipidemia Diabetes mellitus BPH (benign prostatic hyperplasia) Hypertension Surgical History Surgical History History of nasal septoplasty H/O colonoscopy Family History Family History Father Heart disease Hypertension Mother No problems noted. 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 HEAD: Normocephalic, atraumatic. EYES: PERRL and EOMI. ENT: Mucous membranes moist. CHEST: Clear to auscultation. No respiratory distress. HEART: Regular rate and rhythm. Normal peripheral pulses. ABDOMEN: Soft, nontender, nondistended. EXTREMITIES: Normal range of motion. 1+ edema. SKIN: Warm, dry, no rash. NEURO: Alert and oriented x3. walks around the room with a steady gait. PSYCH: Normal mood and affect. Course Course Emergency Course: I have discussed lab and imaging results with the patient's son as well as the patient. Patient is able to draw a clock with the hands pointing at the 3 o'clock position. He is orient x3. He does seem to go off on tangents when we are talking. I have had a long conversation about getting medication boxes to help the patient take his medication schedule. Patient reports he has decided he just does not want to take medications since his . Discussed that in the short term is best to take medicines as prescribed to show prove that he is able to adhere to his schedule. I have also discussed with family that the patient does not meet criteria to be admitted to the hospital for the next 3 days to then be placed in a facility. Son reports patient has follow-up with PCP tomorrow. Additionally patient's leg edema is quite mild, recommend compression stockings and increase activity like walking. Vital Signs Vital signs: Vital Signs Temperature 97.6 F 04/14/25 15:06 Pulse Rate 78 04/14/25 15:06 Respiratory Rate 16 11/13/25 15:06 Blood Pressure 154/85 H 04/14/25 15:06 Pulse Oximetry 100 04/14/25 15:06 Oxygen Delivery Room Air 04/14/25 15:06 Temperature 97.6 F 04/14/25 15:06 Pulse Rate 74 04/14/25 18:48 Respiratory Rate 18 04/14/25 18:48 Blood Pressure 134/75 04/14/25 18:48 Pulse Oximetry 100 04/14/25 18:48 Oxygen Delivery Room Air 04/14/25 15:06 Medical Decision Making Vital Signs Vital Signs: Vital Signs Temperature 97.6 F 04/14/25 15:06 Pulse Rate 78 04/14/25 15:06 Respiratory Rate 16 04/14/25 15:06 Blood Pressure 154/85 H 04/14/25 15:06 Pulse Oximetry 100 04/14/25 15:06 Oxygen Delivery Room Air 04/14/25 15:06 Temperature 97.6 F 04/14/25 15:06 Pulse Rate 74 04/14/25 18:48 Respiratory Rate 18 04/14/25 18:48 Blood Pressure 134/75 04/14/25 18:48 Pulse Oximetry 100 04/14/25 18:48 Oxygen Delivery Room Air 04/14/25 15:06 Lab Data 04/14/25 17:40 04/14/25 17:40 Labs: Lab Results 04/14/25 Range/Units 17:40 WBC 6.6 (4.5-10.0) K/mm3 RBC 4.26 L (4.6-6.20) M/mm3 Hgb 12.8 L (14.0-18.0) g/dL Hct 40.6 L (42.0-52.0) % MCV 95.3 (80-100) fl MCH 30.0 (26-34) pg MCHC 31.5 L (32-36) g/dl RDW 13.4 (11.5-14.5) % Plt Count 228 (150-375) k/mm3 MPV 10.5 H (7.4-10.4) fl Immature Gran % (Auto) 0.3 (0-0.5) % Neut % (Auto) 55.4 (45.5-73.1) % Lymph % (Auto) 31.4 (18.3-44.2) % Tompkins % (Auto) 10.0 H (2.6-8.5) % Eos % (Auto) 2.1 (0-4.4) % Baso % (Auto) 0.8 (0.2-1.2) % Lymph # (Auto) 2.08 (0.9-3.2) K/mm3 Tompkins # (Auto) 0.7 H (0.1-0.6) K/mm3 Eos # (Auto) 0.1 (0-0.3) K/mm3 Baso # (Auto) 0.1 (0.0-0.1) K/mm3 Abs Immat Gran (auto) 0.02 (0.00-0.031) K/mm3 Absolute Neuts (auto) 3.7 (1.3-6.7) K/mm3 Absolute Nucleated RBC 0.000 (0.0-0.012) K/mm3 Nucleated RBC % 0.0 (0.0-0.2) % Sodium 138 (137-145) mmol/L Potassium 4.0 (3.4-5.0) mmol/L Chloride 102 (98-107) mmol/L Carbon Dioxide 28 (22-30) mmol/L Anion Gap 8 (4-12) mmol/L BUN 16 (9-20) mg/dL Creatinine 1.05 (0.7-1.3) mg/dL Estim Creat Clear Calc 67 ml/min Estimated GFR > 60 (59 - ) Glucose 127 H (65-110) mg/dL Calcium 9.3 (8.4-10.2) mg/dL Total Bilirubin 0.5 (0.2-1.3) mg/dL AST 29 (17-59) U/L ALT 26 (6-50) U/L Alkaline Phosphatase 31 L (38-126) U/L Total Protein 7.5 (6.3-8.2) g/dL Albumin 4.4 (3.5-5.1) g/dL Urine Color Yellow (Yellow) Urine Appearance Clear (Clear) Urine pH 6.5 (5.0-9.0) Ur Specific Worden 1.021 (1.001-1.035) Urine Protein Negative (Negative) mg/dL Urine Glucose (UA) 2+ H (Negative) mg/dL Urine Ketones Negative (Negative) mg/dL Ur Blood (Man) Negative (Negative) Urine Nitrate Negative (Negative) Urine Bilirubin Negative (Negative) Urine Urobilinogen 1.0 (<2.0) mg/dL Leukocyte Esterase Rfl Negative (Negative) LARRY/UL Urine Opiates Screen Negative (Negative) Urine Methadone Screen Negative (Negative) Ur Barbiturates Screen Negative (Negative) Ur Phencyclidine Scrn Negative (Negative) Ur Amphetamine Screen Negative (Negative) U Benzodiazepines Scrn Negative (Negative) Urine Cocaine Screen Negative (Negative) U Cannabinoids Screen Negative (Negative) Ethyl Alcohol < 10 (<10) mg/dL Discharge Plan Discharge Clinical Impression: Memory changes Patient Disposition: Home Condition: Stable Instructions: Antibiotic Form Additional Instructions: There is concern that you may be developing memory issues. I am your lab work today was unremarkable and your imaging studies also showed no significant abnormality. You may require an MRI in the near future and possibly evaluation by a neurologist. It is recommended you create a schedule so that there are no mix ups with medications or other tasks. Please be patient with your family has they try to help you while your workup continues. Patient Language: Citizen Of [place] Prescriptions: No Action amlodipine 5 mg tablet 5 mg PO DAILY Qty: 90 1RF fluticasone propionate 50 mcg/actuation spray,suspension See Rx Instructions .ROUTE .COMPLEX PRN Dose Instruction: USE 2 SPRAYS INTRANASALLY DAILY ADMINISTER INTO EACH NOSTRIL Rx Instructions: USE 2 SPRAYS INTRANASALLY DAILY ADMINISTER INTO EACH NOSTRIL PRN; cholecalciferol (vitamin D3) 125 mcg (5,000 unit) capsule 125 mcg PO DAILY loratadine 10 mg tablet 10 mg PO DAILY PRN tamsulosin [Flomax] 0.4 mg capsule 0.8 mg PO DAILY (DME) blood-glucose meter [OneTouch Ultra2 Meter] [facility] See Rx Instructions .Route Qty: 1 0RF Rx Instructions: check blood sugars t.i.d. a.c. As directed atorvastatin 20 mg tablet 20 mg PO DAILY Qty: 90 1RF lisinopril-hydrochlorothiazide 20-12.5 mg tablet 2 tablet PO DAILY Qty: 180 1RF sertraline 100 mg tablet 100 mg PO DAILY Qty: 90 1RF (DME) OneTouch Ultra Test Strip See Rx Instructions .Route Qty: 100 0RF Rx Instructions: Check blood sugar t.i.d. a.c. as directed omeprazole 20 mg capsule,delayed release(DR/EC) 20 mg PO DAILY Qty: 90 1RF metformin 500 mg tablet extended release 24 hr 500 mg PO BID Qty: 180 1RF glimepiride 4 mg tablet 4 mg PO QAM Qty: 90 0RF Rx Instructions: administer with breakfast Ozempic 0.25 mg or 0.5 mg (2 mg/3 mL) pen injector 0.5 mg subcut WEEKLY Qty: 3 0RF Follow-up/Referrals: Emory Hernández MD [Primary Care Provider, Family Practice] - 1 Week
[2025-04-14 18:48] VITALS: BP 134/75; PULSE 74; RESP 18; O2SAT 100
--- NOTE | 2025-04-14 19:42 | PC.NURSE ---
Dr. Blackmon brought back to bedside with 2 sons in room. lengthy discussion by provider. all questions answered. patient is alert and oriented x 4. follows commands and verbalized understanding of discharge instructions. all questions answered. patient able to ambulate out on his own ability. family to take patient home.
--- NOTE | 2025-04-14 19:56 | PC.NURSE ---
This RN called to assist with deescalation of pt's family. Security notified d/t aggressive behavior. Dr Adams had just spent 15 min in pt room discussing the plan. This RN spoke with pt's son who is on the phone with a female stating that this is not a safe-discharge d/t pt's memory issues. At this time, pt is axox3 and is wanting to leave to go eat. Pt ambulatory to waiting room with steady gait. Pt's sons refusing to leave and is requesting PD presence. Yanet called and arrived to speak with family. This RN discussed with son that at this time, pt does not meet criteria for discharge. Patient advocate card given. At this point, pt's family agreeable to call advocate in am.
== END 2025-04-14 19:45 | disposition home or self-care (01) ==
PROVIDERS: Emergency Provider Emergency Medicine; PCP Family Medicine
DX: R41.3 Other amnesia (principal); I10 Essential (primary) hypertension; E11.9 Type 2 diabetes mellitus without complications; E78.5 Hyperlipidemia, unspecified; N40.0 Benign prostatic hyperplasia without lower urinary tract symptoms; F32.4 Major depressive disorder, single episode, in partial remission; F41.9 Anxiety disorder, unspecified; Z72.0 Tobacco use; Z79.899 Other long term (current) drug therapy; Z79.85 Long-term (current) use of injectable non-insulin antidiabetic drugs; Z79.84 Long term (current) use of oral hypoglycemic drugs
CPT/HCPCS: 36415; 70450; 71046; 80053; 80307; 81003; 82077; 85025; 99284

== ENCOUNTER 2025-04-15 14:19 | Outpatient (CLI) | payer MEDICARE, SELFPAY ==
[2025-04-15 18:24] LABS: Cholesterol 136 mg/dL (0-200); HDL Direct 50 mg/dL; Magnesium 2.3 mg/dL (1.6-2.3); Triglycerides 127 mg/dL (<150)
[2025-04-15 18:26] LABS: Hemoglobin A1C 8.0 % (<5.7)
[2025-04-15 18:56] LABS: Thyroid Stimulating Hormone Reflex 1.750 uIU/mL (0.465-4.68)
[2025-04-15 19:00] LABS: Prostate Specific Antigen 3.6 ng/mL (< OR = 4.0)
[2025-04-15 19:19] LABS: Vitamin B12 715.0 pg/mL (239-931)
== END 2025-04-15 14:20 | disposition home or self-care (01) ==
LOC: ANHGOSHLAB 14:21
PROVIDERS: PCP Nurse Practitioner Family; Visit Provider Nurse Practitioner Family
DX: E55.9 Vitamin D deficiency, unspecified (principal); E11.9 Type 2 diabetes mellitus without complications; I10 Essential (primary) hypertension; R60.9 Edema, unspecified; Z12.5 Encounter for screening for malignant neoplasm of prostate
CPT/HCPCS: 36415; 80061; 82306; 82607; 83036; 83735; 84153; 84443; G0103

== ENCOUNTER 2025-05-09 13:52 | Outpatient (CLI) | payer MEDICARE, SELFPAY ==
--- OUTSIDE RECORDS SUMMARY | 2025-05-09 17:06 | XMS_ITS | Encounter Summary ---
Author Organization [facility] Address [address] [place] [address] Care Team Providers Care Insurance Account Executive Name Role Phone Greg Arnold MD Primary Care Provider [phone] Encounter Details Date Type Department Care Team (Late st Contact Info) Description 11/07/2006 Outpatient Historical [facility] Primary Care - [address] [place] [address] Azam Falcon MD NO ADDRESS [...] filedocumented in this encounter Care Teams Insurance Account Executive Relationship Specialty Start Date End Date Greg Arnold MD PCP - General Family Practice 11/04/23 02/17/24 documented as of this encounter
--- OUTSIDE RECORDS SUMMARY | 2025-05-09 17:06 | XMS_ITS | Clinical Summary ---
Author Organization [facility] Address [address] [place] [address] Care Team Providers Care Silk Screen Repairer Name Role Phone Unavailable Primary Care Provider [...] Strip Test once daily DX code E11.9 [facility] [id number] 100 Strip 11 4 Active Active Problems [...] and fatigue 10/11/2004 Obesity, unspecified 10/11/2004 021 Immunizations Immunization Administration Dates Next Due (One Public) COVID-19 VACCINE - EMERGENCY USE AUTHORIZATION, AD26,COV2S(PF) [...] than three times a week 09/27/2020 Attends [employer] Not on file 09/27 Do you belong to any clubs o r organizations such as orthodoxy groups, unions, fraternal or athletic groups, or [...] on file Legal Sex Male 5:12 AM BEHAVIORAL HEALTH COUNSELOR Gender Identity Not on file Sexual [...] series) 2027 Medical Devices Implanted Type Area Grain Oilseed Or Pasture Grower Device Identifier Shelf Expiration Date Model / Serial / Lot Clip Endo Resolution 360 235cm [id number] - [id number] Implanted:Qty: 1 on 02/03/2024 by Maksim Garcia MD at [facility] Clip N/A: [employer] [id number] 09/19/2026 [id number] / / [id number] Procedures Procedure Name Priority Date/Time Associated Diagnosis Comments COLONOSCOPY REPORT 02/03/2024 11 :04 AM CDT LIPID PANEL Routine 03/07/2023 11:19 AM CDT Type 2 diabetes mellitus without complication, without long-term current use of insulin ([facility]) HEMOGLOBIN A1C Routine 03/07/2023 11:19 AM CDT Type 2 diabetes mellitus without complication, without long-term current use of insulin ([facility]) MICROALBUMIN/CREATIN INE RATIO, RANDOM UR Routine 06/04/2021 11:44 AM BEHAVIORAL HEALTH COUNSELOR HM DIABETES EYE EXAM Routine 01/23/2021 from Last 3 Months or Most Recently Relevant to Health Maintenance Results * COLONOSCOPY REPORT (02/03/2024 11:04 AM CDT) Narrative Procedure Note Maksim Garcia MD - 02/03/2024 11:04 AM CDT [facility] Endoscopy Patient Name: Charles Purcell [...] of Addenda: [address]; [place] [address] Maksim Garcia MD GI PROCEDURE ORDERABL ES Final Result * (ABNORMAL) HEMOGLOBIN A1C (03/07/2023 11:19 AM CDT) HEMOGLOBIN A1C 6.8(H) <5.7 % of total Hgb [facility] Comment: For someone without known diabetes, [...] ESTIMATED AVERAGE GLUCOSE (MG/DL) 148 mg/dL Narcisa Barry ESTIMATED AVERAGE GLUCOSE (MMOL/L) 8.2 mmol/L Narcisa Barry Comment: FASTING:YES FASTING: YES Test Performed at: [facility] [place] [address] [place] [id number] [facility] Blood 03/07/2023 11:1 9 AM CDT 03/07/2023 11:19 AM CDT us Azam Falcon MD CHEMISTRY ORDERABLES Final Re sult [facility] [phone] [facility] [address] [address] [address] [place] [phone] * LIPID PANEL (03/07/2023 11:19 AM CDT) CHOLESTEROL 131 <200 mg/dL Narcisa Barry HDL 58 > OR = 40 mg/dL Narcisa Barry TRIGLYCERIDE 126 <150 mg/dL Narcisa Barry LDL CALCULATED 52 mg/dL (calc) Narcisa Barry Comment: Reference range: <100 Desirable range <100 mg/dL for primary prevention; <70 mg/dL for patients with CHD or diabetic patients with > or = 2 CHD risk factors. LDL-C is now calculated using the Godwin-Beckie calculation, which is a validated novel method providing better accuracy than the Friedewald equation in the estimation of LDL-C. Godwin MORTON et al. TATUM. 2013;310(19): 3936-9131 (http://education.[employer].Soundl.ly/faq/YWE963) CHOL/HDL RATIO 2.3 <5.0 (calc) Narcisa Barry TOTAL NON-HDL CHOL(LDL+VLDL) 73 <130 mg/dL (calc) Narcisa Barry Comment: For patients with diabetes plus 1 major ASCVD risk factor, treating to a non-HDL-C goal of <100 mg/dL (LDL-C of <70 mg/dL) is considered a therapeutic option. FASTING:YES FASTING: YES Test Performed at: [place] [place] [address] [address] [place] [address] [email or web address] Blood 03/07/2023 11:1 9 AM CDT 03/07/2023 11:19 AM CDT Result [facility] Azam Falcon MD CHEMISTRY ORDERABLES Final Re sult Performing Organization Address [facility] Phone Number [facility] [phone] [place] [address] [place] [address] * MICROALBUMIN/CREATININE RATIO, RANDOM UR (06/04/2021 11:44 AM BEHAVIORAL HEALTH COUNSELOR) Creatinine, Urine 62 20 - 320 mg/dL [facility] MICROALBUMIN, URINE 1.0 See Note: mg/dL [facility] Comment: Reference Range: Reference Range Not established MICROALBUMIN/CREAT RATIO, UR 16 <30 mcg/mg creat [facility] Comment: The ADA defines abnormalities in albumin excretion as follows: Albuminuria Category Result (mcg/mg creatinine) Normal to Mildly increased <30 Moderately increased 30-299 Severely increased > OR = 300 The ADA recommends that at least two of three specimens collected within a 3-6 month period be abnormal before considering a patient to be within a diagnostic category. Test Performed at: [facility] [address] [place] [address] Maksim Savage D.O., MPH 06/04/2021 11:4 4 AM BEHAVIORAL HEALTH COUNSELOR 06/04/2021 11:45 AM BEHAVIORAL HEALTH COUNSELOR Result [facility] Azam Falcon MD URINE ORDERABLES Final Result Performing Organization Address [facility] Co de Phone Number [facility] [address] [place] [address] * DIABETES EYE EXAM (01/23/2021) Abstract Provider HEALTH MAINTENANCE Edited Resu lt - Final Performing Organization Address City/[facility] Co de Phone Number [facility] INTERNAL MEDIC[facility]# [id number] [address] [place] [phone] from Last 3 Months or Most Recently Relevant to Health Maintenance Insurance MEDICARE PART A AND B [employer] Advance Directives For more information, please contact: [phone] * Full Code (Latest Code Status on File) Date Activated Date Inactivated Comments 02/03/2024 9:34 AM 02/03/2024 1:43 PM * Full Code Date Activated Date Inactivated Comments 12/05/2022 11:21 AM 12/05/2022 3:25 PM * Full Code Date Activated Date Inactivated Comments 11/03/2018 8:20 AM 11/03/2018 11:58 AM
--- OUTSIDE RECORDS SUMMARY | 2025-05-09 17:07 | XMS_ITS | Encounter Summary ---
Author Organization [facility] Address [address] [place] [address] Care Team Providers Care Compliance Manager Name Role Phone Greg Arnold MD Primary Care Provider [phone] Encounter Details Date Type Department Care Team (Late st Contact Info) Description 11/07/[address] [facility] Primary Care - [address] [place] [address] Azam Falcon MD NO ADDRESS ON FILE Social History Tobacco Use Types Packs/Day Years Used Date Smoking Tobacco: Never Assessed Sex and Gender Information Value Date Recorded Sex Assigned at Not on file Legal Sex Male 5:12 AM DOG SITTER Gender Identity Not on file Sexual Orientation Not on file documented as of this encounter Plan of Treatment Not on file documented as of this encounter Visit Diagnoses Not on filedocumented in this encounter Care Teams Compliance Manager Relationship Specialty Start Date End Date Greg Arnold MD PCP - General Family Practice 11/04/23 02/17/24 documented as of this encounter
--- OUTSIDE RECORDS SUMMARY | 2025-05-09 17:08 | XMS_ITS | Encounter Summary ---
Author Organization [facility] Address [address] [place] [address] Care Team Providers Care Hand Rounder Name Role Phone Greg Arnold MD Primary Care Provider Encounter Details Date Type Department Care Team (Late st Contact Info) Description 08/05/2005 Outpatient Historical [facility] Primary Care - [address] [address] Azam Falcon MD NO ADDRESS ON FILE Social History Tobacco Use Types Packs/Day Years Used Date Smoking Tobacco: Never Assessed Sex and Gender Information Value Date Recorded Sex Assigned at Not on file Legal Sex Male 5:12 AM COMMUNITY HEALTH ADVOCATE Gender Identity Not on file Sexual Orientation Not on file documented as of this encounter Last Filed Vital Signs Vital Sign Reading Time Taken Comments Blood Pressure 148/80 08/05/2005 3:00 PM COMMUNITY HEALTH ADVOCATE Pulse - - Temperature 36.6 C (97.9 F) 08/05/2005 3:00 PM COMMUNITY HEALTH ADVOCATE Respiratory Rate - - Oxygen Saturation - - Inhaled Oxygen Concentration - - Weight 100.2 kg (221 lb) 08/05/2005 3:00 PM COMMUNITY HEALTH ADVOCATE Height - - Body Mass Index - - documented in this encounter Plan of Treatment Not on file documented as of this encounter Visit Diagnoses Not on filedocumented in this encounter Care Teams Hand Rounder Relationship Specialty Start Date End Date Greg Arnold MD PCP - General Family Practice 11/04/23 02/17/24 documented as of this encounter
--- OUTSIDE RECORDS SUMMARY | 2025-05-09 17:08 | XMS_ITS | Encounter Summary ---
Author Organization [facility] Address [address] [place] [address] Care Team Providers Care Air Conditioning Insulation Installer Name Role Phone Greg Arnold MD Primary Care Provider [phone] Encounter Details Date Type Department Care Team (Late st Contact Info) Description 01/22/2006 Outpatient Historical [facility] Care - [address] [place] [address] Azam Falcon MD NO ADDRESS ON FILE Social History Tobacco Use Types Packs/Day Years Used Date Smoking Tobacco: Never Assessed Sex and Gender Information Value Date Recorded Sex Assigned at Not on file Legal Sex Male 5:12 AM MANAGER FILE Gender Identity Not on file Sexual Orientation [...] on filedocumented in this encounter Care Teams Air Conditioning Insulation Installer Relationship Specialty Start Date End Date Greg Arnold MD PCP - General Family Practice 11/04/23 02/17/24 documented as of this encounter
--- OUTSIDE RECORDS SUMMARY | 2025-05-09 17:08 | XMS_ITS | Encounter Summary ---
Author Organization [facility] Address [address] [place] [address] Care Team Providers Care Surveyor Geophysical Prospecting Name Role Phone Greg Arnold MD Primary Care Provider [phone] Encounter Details Date Type Department Care Team (Late st Contact Info) Description 06/12/2006 Orders Only [facility] Primary Care - [address] [place] [address] Azam Falcon MD NO ADDRESS ON FILE Social History Tobacco Use Types Packs/Day Years Used Date Smoking Tobacco: Never Assessed Sex and Gender Information Value Date Recorded Sex Assigned at Not on file Legal Sex Male 5:12 AM COGENERATION TECHNICIAN Gender Identity Not on file Sexual Orientation Not on file documented as of this encounter Plan of Treatment Not on file documented as of this encounter Visit Diagnoses Not on filedocumented in this encounter Care Teams Surveyor Geophysical Prospecting Relationship Specialty Start Date End Date Greg Arnold MD PCP - General Family Practice 11/04/23 02/17/24 documented as of this encounter
--- OUTSIDE RECORDS SUMMARY | 2025-05-09 17:08 | XMS_ITS | Encounter Summary ---
Author Organization [facility] Address [address] [place] [address] Care Team Providers Care Brood Station Manager Name Role Phone Greg Arnold MD Primary Care Provider [phone] Encounter Details Date Type Department Care Team (Late st Contact Info) Description 11/07/2006 Outpatient Historical [facility] Primary Care - [address] [place] [address] Azam Falcon MD NO ADDRESS ON FILE Social History Tobacco Use Types Packs/Day Years Used Date Smoking Tobacco: Never Assessed Sex and Gender Information Value Date Recorded Sex Assigned at Not on file Legal Sex Male 5:12 AM SPINNER FRAME Gender Identity Not on file Sexual Orientation Not on file documented as of this encounter Plan of Treatment Not on file documented as of this encounter Visit Diagnoses Not on filedocumented in this encounter Care Teams Brood Station Manager Relationship Specialty Start Date End Date Greg Arnold MD PCP - General Family Practice 11/04/23 02/17/24 documented as of this encounter
--- OUTSIDE RECORDS SUMMARY | 2025-05-09 17:08 | XMS_ITS | Encounter Summary ---
Author Organization [facility] Address [address] [place] [address] Care Team Providers Care Belt Measurer Name Role Phone Greg Arnold MD Primary Care Provider [phone] Encounter Details Date Type Department Care Team (Late st Contact Info) Description 07/12/2005 Orders Only [facility] Primary Care - [address] [place] [address] Azam Falcon MD NO ADDRESS ON FILE Social History Tobacco Use Types Packs/Day Years Used Date Smoking Tobacco: Never Assessed Sex and Gender Information Value Date Recorded Sex Assigned at Not on file Legal Sex Male 5:12 AM TRAFFIC CIRCUIT ENGINEER Gender Identity Not on file Sexual Orientation Not on file documented as of this encounter Progress Notes * Azam Falcon MD - 03/10/2008 2:36 PM CDT TIME:10:11 am PATIENT`S HOME PHONE: PATIENT`S WORK PHONE: PATIENT`S INSURANCE: [email or web address] WHO TOOK THE CALL: Lashon Santillan M GENERAL INFORMATION PATIENT STATUS: Established Patient. LAST VISIT: 05/15/05 PCP: maria eugenia WHO CALLED: Pharmacy called. PHARMACY NUMBER: [phone] SECTION 1: REQUESTED ACTION maia 07/12/05 at 10:12 am: MEDICATION REQUEST: MEDICATION REQUEST: Patient requests a refill. MEDICATIONS: LISINOPRIL ORAL TABLET 40 MG, 1 Every Morning, 30 Dispensed, 5 Fills, 30 Duration/Days Supply, status: NEW PRESCRIPTION, 01/11/2005. Pharm asking for Lisinopril 20mg # 30 L/R 04/26 Ok to refill? /lashon need chart [facility]AL [facility]/laney SECTION 2: RN/CARL RESPONSE: [facility] 07/12/05 at 01:29 pm MEDICATIONS: LISINOPRIL ORAL TABLET 40 MG, 1 Every Morning, 30 Dispensed, 5 Fills, 30 Duration/Days Supply, status: DISCONTINUED, 07/12/2005. LISINOPRIL ORAL TABLET 20 MG, 1 Every Day, 30 Dispensed, 3 Fills, 30 Duration/Days Supply, status: NEW PRESCRIPTION, 07/12/2005. FINAL ACTION: [facility] 07/12/05 at 01:34 pm Called pharmacy at 07/12/05 at 01:34 pm. ritchie/laney Electronically Signed by: Laney Diaz on Tuesday, July 12, 2005 documented in this encounter Plan of Treatment Not on file documented as of this encounter Visit Diagnoses Not on filedocumented in this encounter Care Teams Belt Measurer Relationship Specialty Start Date End Date Greg Arnold MD PCP - General Family Practice 11/04/23 02/17/24 documented as of this encounter
--- OUTSIDE RECORDS SUMMARY | 2025-05-09 17:08 | XMS_ITS | Encounter Summary ---
Author Organization [facility] Address [address] [place] [address] Care Team Providers Care Machine Fancy Stitcher Name Role Phone Greg Arnold MD Primary Care Provider [phone] Encounter Details Date Type Department Care Team (Late st Contact Info) Description 08/28/2005 Orders Only [facility] Primary Care - [address] [place] [address] Azam Falcon MD NO ADDRESS ON FILE Social History Tobacco Use Types Packs/Day Years Used Date Smoking Tobacco: Never Assessed Sex and Gender Information Value Date Recorded Sex Assigned at Not on file Legal Sex Male 5:12 AM FRONT DESK MONITOR Gender Identity Not on file Sexual Orientation Not on file documented as of this encounter Plan of Treatment Not on file documented as of this encounter Visit Diagnoses Not on filedocumented in this encounter Care Teams Machine Fancy Stitcher Relationship Specialty Start Date End Date Greg Arnold MD PCP - General Family Practice 11/04/23 02/17/24 documented as of this encounter
--- OUTSIDE RECORDS SUMMARY | 2025-05-09 17:09 | XMS_ITS | Encounter Summary ---
Author Organization [facility] Address [address] [place] [address] Care Team Providers Care Plastic Finisher Name Role Phone Greg Arnold MD Primary Care Provider Encounter Details Date Type Department Care Team (Late st Contact Info) Description 05/15/2005 Outpatient Historical [facility] Primary Care - [address] [place] [address] Azam Falcon MD NO ADDRESS ON FILE Social History Tobacco Use Types Packs/Day Years Used Date Smoking Tobacco: Never Assessed Sex and Gender Information Value Date Recorded Sex Assigned at Not on file Legal Sex Male 5:12 AM MORTGAGE PROCESSING MANAGER Gender Identity Not on file Sexual Orientation Not on file documented as of this encounter Plan of Treatment Not on file documented as of this encounter Visit Diagnoses Not on filedocumented in this encounter Care Teams Plastic Finisher Relationship Specialty Start Date End Date Greg Arnold MD PCP - General Family Practice 11/04/23 02/17/24 documented as of this encounter
--- OUTSIDE RECORDS SUMMARY | 2025-05-09 17:09 | XMS_ITS | Encounter Summary ---
Author Organization [facility] Address [address] [place] [address] Care Team Providers Care Operation Supervisor Name Role Phone Greg Arnold MD Primary Care Provider [phone] Encounter Details Date Type Department Care Team (Late st Contact Info) Description 06/24/2005 Outpatient Historical [facility] Azam Falcon MD NO ADDRESS ON FILE ABDOMINAL PAIN UNSPEC SITE (Primary Dx) Social History Tobacco Use Types Packs/Day Years Used Date Smoking Tobacco: Never Assessed Sex and Gender Information Value Date Recorded Sex Assigned at Not on file Legal Sex Male 5:12 AM BENEFIT AUTHORIZER Gender Identity Not on file Sexual Orientation Not on file documented as of this encounter Plan of Treatment Not on file documented as of this encounter Visit Diagnoses Diagnosis Abdominal pain, unspecified site- Primary documented in this encounter Care Teams Operation Supervisor Relationship Specialty Start Date End Date Greg Arnold MD PCP - General Family Practice 11/04/23 02/17/24 documented as of this encounter
--- OUTSIDE RECORDS SUMMARY | 2025-05-09 17:09 | XMS_ITS | Encounter Summary ---
Author Organization [facility] Address [address] [place] [address] Care Team Providers Care Block Engraver Name Role Phone Greg Arnold MD Primary Care Provider [phone] Encounter Details Date Type Department Care Team (Late st Contact Info) Description 01/11/2005 Outpatient Historical [facility] Primary Care - [address] [place] [address] Azam Falcon MD NO ADDRESS ON FILE Social History Tobacco Use Types Packs/Day Years Used Date Smoking Tobacco: Never Assessed Sex and Gender Information Value Date Recorded Sex Assigned at Not on file Legal Sex Male 5:12 AM PRINT PRODUCTION MANAGER Gender Identity Not on file Sexual [...] on filedocumented in this encounter Care Teams Block Engraver Relationship Specialty Start Date End Date Greg Arnold MD PCP - General Family Practice 11/04/23 02/17/24 documented as of this encounter
--- OUTSIDE RECORDS SUMMARY | 2025-05-09 17:09 | XMS_ITS | Encounter Summary ---
Author Organization [facility] Address [address] [place] [address] Care Team Providers Care Green Building Materials Distributor Name Role Phone Greg Arnold MD Primary Care Provider [phone] Encounter Details Date Type Department Care Team (Late st Contact Info) Description 05/15/2005 Outpatient Historical [facility] Primary Care - [address] [place] [address] Azam Falcon MD NO ADDRESS ON FILE Social History Tobacco Use Types Packs/Day Years Used Date Smoking Tobacco: Never Assessed Sex and Gender Information Value Date Recorded Sex Assigned at Not on file Legal Sex Male 5:12 AM BACKER UP Gender Identity Not on file Sexual Orientation Not on file documented as of this encounter Plan of Treatment Not on file documented as of this encounter Visit Diagnoses Not on filedocumented in this encounter Care Teams Green Building Materials Distributor Relationship Specialty Start Date End Date Greg Arnold MD PCP - General Family Practice 11/04/23 02/17/24 documented as of this encounter
--- OUTSIDE RECORDS SUMMARY | 2025-05-09 17:10 | XMS_ITS | Encounter Summary ---
Author Organization [facility] Address [address] [place] [address] Care Team Providers Care Ux Information Architect Name Role Phone Greg Arnold MD Primary Care Provider [phone] Encounter Details Date Type Department Care Team (Late st Contact Info) Description 05/15/2005 Outpatient Historical [facility] Primary Care - [address] [place] [address] Azam Falcon MD NO ADDRESS ON FILE Social History Tobacco Use Types Packs/Day Years Used Date Smoking Tobacco: Never Assessed Sex and Gender Information Value Date Recorded Sex Assigned at Not on file Legal Sex Male 5:12 AM DRAMATIC CRITIC Gender Identity Not on file Sexual Orientation Not on file documented as of this encounter Plan of Treatment Not on file documented as of this encounter Visit Diagnoses Not on filedocumented in this encounter Care Teams Ux Information Architect Relationship Specialty Start Date End Date Greg Arnold MD PCP - General Family Practice 11/04/23 02/17/24 documented as of this encounter
--- OUTSIDE RECORDS SUMMARY | 2025-05-09 17:10 | XMS_ITS | Encounter Summary ---
Author Organization [facility] Address [address] [place] [address] Care Team Providers Care Rake Operator Name Role Phone Greg Arnold MD Primary Care Provider [phone] Encounter Details Date Type Department Care Team (Late st Contact Info) Description 01/27/2001 Outpatient Historical [facility] Jaswinder Conrad MD [address] [place] [address] Deviated nasal septum (Primary Dx) Social History Tobacco Use Types Packs/Day Years Used Date Smoking Tobacco: Never Assessed Sex and Gender Information Value Date Recorded Sex Assigned at Not on file Legal Sex Male 5:12 AM UPHOLSTERY DEPARTMENT SUPERVISOR Gender Identity Not on file Sexual Orientation Not on file documented as of this encounter Plan of Treatment Not on file documented as of this encounter Visit Diagnoses Diagnosis Deviated nasal septum- Primary documented in this encounter Care Teams Rake Operator Relationship Specialty Start Date End Date Greg Arnold MD PCP - General Family Practice 11/04/23 02/17/24 documented as of this encounter
--- OUTSIDE RECORDS SUMMARY | 2025-05-09 17:10 | XMS_ITS | Encounter Summary ---
Author Organization [facility] Address [address] [place] [address] Care Team Providers Care Assembler Golf Wood Head Name Role Phone Greg Arnold MD Primary Care Provider [phone] Encounter Details Date Type Department Care Team (Late st Contact Info) Description 10/19/2002 Outpatient Historical [facility] Primary Care - [address] [place] [address] Azam Falcon MD NO ADDRESS ON FILE Social History Tobacco Use Types Packs/Day Years Used Date Smoking Tobacco: Never Assessed Sex and Gender Information Value Date Recorded Sex Assigned at Not on file Legal Sex Male 5:12 AM VALUE ADVISOR Gender Identity Not on file Sexual Orientation Not on file documented as of this encounter Plan of Treatment Not on file documented as of this encounter Visit Diagnoses Not on filedocumented in this encounter Care Teams Assembler Golf Wood Head Relationship Specialty Start Date End Date Greg Arnold MD PCP - General Family Practice 11/04/23 02/17/24 documented as of this encounter
--- OUTSIDE RECORDS SUMMARY | 2025-05-09 17:10 | XMS_ITS | Encounter Summary ---
Author Organization [facility] Address [address] [place] [address] Care Team Providers Care Solid Waste Management Engineer Name Role Phone Greg Arnold MD Primary Care Provider [phone] Encounter Details Date Type Department Care Team (Late st Contact Info) Description 01/02/2001 Outpatient Historical [facility] Primary Care - [address] [place] [address] Azam Falcon MD NO ADDRESS ON FILE Social History Tobacco Use Types Packs/Day Years Used Date Smoking Tobacco: Never Assessed Sex and Gender Information Value Date Recorded Sex Assigned at Not on file Legal Sex Male 5:12 AM SOFTWARE DEVELOPMENT PROJECT MANAGER Gender Identity Not on file Sexual Orientation Not on file documented as of this encounter Plan of Treatment Not on file documented as of this encounter Visit Diagnoses Not on filedocumented in this encounter Care Teams Solid Waste Management Engineer Relationship Specialty Start Date End Date Greg Arnold MD PCP - General Family Practice 11/04/23 02/17/24 documented as of this encounter
--- OUTSIDE RECORDS SUMMARY | 2025-05-09 17:10 | XMS_ITS | Encounter Summary ---
Author Organization [facility] Address [address] [place] [address] Care Team Providers Care Fast Food Restaurant Manager Name Role Phone Greg Arnold MD Primary Care Provider [phone] Encounter Details Date Type Department Care Team (Late st Contact Info) Description 04/01/2003 Outpatient Historical [facility] Primary Care - [address] [place] [address] Azam Falcon MD NO ADDRESS ON FILE Social History Tobacco Use Types Packs/Day Years Used Date Smoking Tobacco: Never Assessed Sex and Gender Information Value Date Recorded Sex Assigned at Not on file Legal Sex Male 5:12 AM SUPERVISOR BOAT OUTFITTING Gender Identity Not on file Sexual Orientation Not on file documented as of this encounter Plan of Treatment Not on file documented as of this encounter Visit Diagnoses Not on filedocumented in this encounter Care Teams Fast Food Restaurant Manager Relationship Specialty Start Date End Date Greg Arnold MD PCP - General Family Practice 11/04/23 02/17/24 documented as of this encounter
--- OUTSIDE RECORDS SUMMARY | 2025-05-09 17:10 | XMS_ITS | Encounter Summary ---
Author Organization [facility] Address [address] [place] [address] Care Team Providers Care Automotive Tire Worker Name Role Phone Greg Arnold MD Primary Care Provider [phone] Encounter Details Date Type Department Care Team (Late st Contact Info) Description 10/11/2004 Outpatient Historical [facility] Primary Care - [address] [place] [address] Azam Falcon MD NO ADDRESS ON FILE Social History Tobacco Use Types Packs/Day Years Used Date Smoking Tobacco: Never Assessed Sex and Gender Information Value Date Recorded Sex Assigned at Not on file Legal Sex Male 5:12 AM WORKERS COMPENSATION CLAIMS 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
--- OUTSIDE RECORDS SUMMARY | 2025-05-09 17:10 | XMS_ITS | Encounter Summary ---
Author Organization [facility] Address [address] [place] [address] Care Team Providers Care Historian Research Assistant Name Role Phone Greg Arnold MD Primary Care Provider [phone] Encounter Details Date Type Department Care Team (Late st Contact Info) Description 11/14/2003 Outpatient Historical [facility] Sathish Pimentel MD NO ADDRESS ON FILE SCREENING MAL NEOP-COLON (Primary Dx) Social History Tobacco Use Types Packs/Day Years Used Date Smoking Tobacco: Never Assessed Sex and Gender Information Value Date Recorded Sex Assigned at Not on file Legal Sex Male 5:12 AM CONSULTING SYSTEMS ENGINEER Gender Identity Not on file Sexual Orientation Not on file documented as of this encounter Plan of Treatment Not on file documented as of this encounter Visit Diagnoses Diagnosis Special screening for malignant neoplasms, colon- Primary documented in this encounter Care Teams Historian Research Assistant Relationship Specialty Start Date End Date Greg Arnold MD PCP - General Family Practice 11/04/23 02/17/24 documented as of this encounter
--- OUTSIDE RECORDS SUMMARY | 2025-05-09 17:10 | XMS_ITS | Encounter Summary ---
Author Organization [facility] Address 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
--- OUTSIDE RECORDS SUMMARY | 2025-05-09 17:10 | XMS_ITS | Encounter Summary ---
Author Organization [facility] Address [address] [place] [address] Care Team Providers Care Clinical Information Systems Director Name Role Phone Greg Arnold MD Primary Care Provider [phone] Encounter Details Date Type Department Care Team (Late st Contact Info) Description 05/17/2004 Outpatient Historical [facility] Primary Care - [address] [place] [address] Azam Falcon MD NO ADDRESS ON FILE Social History Tobacco Use Types Packs/Day Years Used Date Smoking Tobacco: Never Assessed Sex and Gender Information Value Date Recorded Sex Assigned at Not on file Legal Sex Male 5:12 AM AUTOMATIC DRILLING 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
--- OUTSIDE RECORDS SUMMARY | 2025-05-09 17:10 | XMS_ITS | Encounter Summary ---
Author Organization [facility] Address [address] [place] [address] Care Team Providers Care Reference Assistant Name Role Phone Greg Arnold MD Primary Care Provider [phone] Encounter Details Date Type Department Care Team (Late st Contact Info) Description 10/11/2003 Outpatient Historical [facility] Primary Care - [address] [place] [address] Azam Falcon MD NO ADDRESS ON FILE Social History Tobacco Use Types Packs/Day Years Used Date Smoking Tobacco: Never Assessed Sex and Gender Information Value Date Recorded Sex Assigned at Not on file Legal Sex Male 5:12 AM GROUND CREW CHIEF Gender Identity Not on file Sexual Orientation Not on file documented as of this encounter Plan of Treatment Not on file documented as of this encounter Visit Diagnoses Not on filedocumented in this encounter Care Teams Reference Assistant Relationship Specialty Start Date End Date Greg Arnold MD PCP - General Family Practice 11/04/23 02/17/24 documented as of this encounter
--- OUTSIDE RECORDS SUMMARY | 2025-05-09 17:11 | XMS_ITS | Encounter Summary ---
Author Organization [facility] Address [address] [place] [address] Care Team Providers Care Movie Producer Name Role Phone Greg Arnold MD Primary Care Provider [phone] Encounter Details Date Type Department Care Team (Late st Contact Info) Description 10/02/2007 Outpatient Historical [facility] Care - [address] [address] Azam Falcon MD NO ADDRESS ON FILE Social History Tobacco Use Types Packs/Day Years Used Date Smoking Tobacco: Never Assessed Sex and Gender Information Value Date Recorded Sex Assigned at Not on file Legal Sex Male 5:12 AM ORACLE SOA ARCHITECT Gender Identity Not on file Sexual [...] on filedocumented in this encounter Care Teams Movie Producer Relationship Specialty Start Date End Date Greg Arnold MD PCP - General Family Practice 11/04/23 02/17/24 documented as of this encounter
--- OUTSIDE RECORDS SUMMARY | 2025-05-09 17:11 | XMS_ITS | Encounter Summary ---
Author Organization [facility] Address [address] [place] [address] Care Team Providers Care Refinery Operator Polymerization Plant Name Role Phone Greg Arnold MD Primary Care Provider [phone] Encounter Details Date Type Department Care Team (Late st Contact Info) Description 12/04/2001 Outpatient Historical [facility] Primary Care - [address] [place] [address] Azam Falcon MD NO ADDRESS ON FILE Social History Tobacco Use Types Packs/Day Years Used Date Smoking Tobacco: Never Assessed Sex and Gender Information Value Date Recorded Sex Assigned at Not on file Legal Sex Male 5:12 AM BOAT LABORER Gender Identity Not on file Sexual Orientation Not on file documented as of this encounter Plan of Treatment Not on file documented as of this encounter Visit Diagnoses Not on filedocumented in this encounter Care Teams Refinery Operator Polymerization Plant Relationship Specialty Start Date End Date Greg Arnold MD PCP - General Family Practice 11/04/23 02/17/24 documented as of this encounter
--- OUTSIDE RECORDS SUMMARY | 2025-05-09 17:11 | XMS_ITS | Encounter Summary ---
Author Organization [facility] Address [address] [place] [address] Care Team Providers Care Tape Maker Name Role Phone Greg Arnold MD Primary Care Provider [phone] Encounter Details Date Type Department Care Team (Late st Contact Info) Description 10/02/2007 Outpatient Historical [facility] Primary Care - [address] [place] [address] Azam Falcon MD NO ADDRESS ON FILE Social History Tobacco Use Types Packs/Day Years Used Date Smoking Tobacco: Never Assessed Sex and Gender Information Value Date Recorded Sex Assigned at Not on file Legal Sex Male 5:12 AM MDM SR Gender Identity Not on file Sexual Orientation Not on file documented as of this encounter Plan of Treatment Not on file documented as of this encounter Visit Diagnoses Not on filedocumented in this encounter Care Teams Tape Maker Relationship Specialty Start Date End Date Greg Arnold MD PCP - General Family Practice 11/04/23 02/17/24 documented as of this encounter
--- OUTSIDE RECORDS SUMMARY | 2025-05-09 17:11 | XMS_ITS | Encounter Summary ---
Author Organization [facility] Address [address] [place] [address] Care Team Providers Care Doll Repairer Name Role Phone Greg Arnold MD Primary Care Provider [phone] Encounter Details Date Type Department Care Team (Late st Contact Info) Description 10/14/2007 Orders Only [facility] Primary Care - [address] [place] [address] Azam Falcon MD NO ADDRESS ON FILE Social History Tobacco Use Types Packs/Day Years Used Date Smoking Tobacco: Never Assessed Sex and Gender Information Value Date Recorded Sex Assigned at Not on file Legal Sex Male 5:12 AM CUSTOMER CARE ASSISTANT Gender Identity Not on file Sexual Orientation Not on file documented as of this encounter Plan of Treatment Not on file documented as of this encounter Visit Diagnoses Not on filedocumented in this encounter Care Teams Doll Repairer Relationship Specialty Start Date End Date Greg Arnold MD PCP - General Family Practice 11/04/23 02/17/24 documented as of this encounter
--- OUTSIDE RECORDS SUMMARY | 2025-05-09 17:11 | XMS_ITS | Encounter Summary ---
Author Organization [facility] Address [address] [place] [address] Care Team Providers Care Visual Inspector Name Role Phone Greg Arnold MD Primary Care Provider [phone] Encounter Details Date Type Department Care Team (Late st Contact Info) Description 04/11/2000 Outpatient Historical [facility] Primary Care - [address] [place] [address] Azam Falcon MD NO ADDRESS ON FILE Social History Tobacco Use Types Packs/Day Years Used Date Smoking Tobacco: Never Assessed Sex and Gender Information Value Date Recorded Sex Assigned at Not on file Legal Sex Male 5:12 AM AIR CHIPPER Gender Identity Not on file Sexual Orientation Not on file documented as of this encounter Plan of Treatment Not on file documented as of this encounter Visit Diagnoses Not on filedocumented in this encounter Care Teams Visual Inspector Relationship Specialty Start Date End Date Greg Arnold MD PCP - General Family Practice 11/04/23 02/17/24 documented as of this encounter
--- OUTSIDE RECORDS SUMMARY | 2025-05-09 17:11 | XMS_ITS | Encounter Summary ---
Author Organization [facility] Address [address] [place] [address] Care Team Providers Care Consolidator Name Role Phone Greg Arnold MD Primary Care Provider [phone] Encounter Details Date Type Department Care Team (Late st Contact Info) Description 09/10/2000 Outpatient Historical [facility] Primary Care - [address] [place] [address] Azam Falcon MD NO ADDRESS ON FILE Social History Tobacco Use Types Packs/Day Years Used Date Smoking Tobacco: Never Assessed Sex and Gender Information Value Date Recorded Sex Assigned at Not on file Legal Sex Male 5:12 AM SCRAPER BURRER Gender Identity Not on file Sexual Orientation Not on file documented as of this encounter Plan of Treatment Not on file documented as of this encounter Visit Diagnoses Not on filedocumented in this encounter Care Teams Consolidator Relationship Specialty Start Date End Date Greg Arnold MD PCP - General Family Practice 11/04/23 02/17/24 documented as of this encounter
--- OUTSIDE RECORDS SUMMARY | 2025-05-09 17:11 | XMS_ITS | Encounter Summary ---
Author Organization [facility] Address [address] [place] [address] Care Team Providers Care Piece Dye Worker Name Role Phone Greg Arnold MD Primary Care Provider [phone] Encounter Details Date Type Department Care Team (Late st Contact Info) Description 10/02/2007 Orders Only [facility] Primary Care - [address] [place] [address] Azam Falcon MD NO ADDRESS ON FILE Social History Tobacco Use Types Packs/Day Years Used Date Smoking Tobacco: Never Assessed Sex and Gender Information Value Date Recorded Sex Assigned at Not on file Legal Sex Male 5:12 AM ENGRAVER TENDER Gender Identity Not on file Sexual Orientation Not on file documented as of this encounter Plan of Treatment Not on file documented as of this encounter Visit Diagnoses Not on filedocumented in this encounter Care Teams Piece Dye Worker Relationship Specialty Start Date End Date Greg Arnold MD PCP - General Family Practice 11/04/23 02/17/24 documented as of this encounter
--- OUTSIDE RECORDS SUMMARY | 2025-05-09 17:11 | XMS_ITS | Encounter Summary ---
Author Organization [facility] Address [address] [place] [address] Care Team Providers Care Street Superintendent Name Role Phone Greg Arnold MD Primary Care Provider [phone] Encounter Details Date Type Department Care Team (Late st Contact Info) Description 02/24/1998 Outpatient Historical [facility] Primary Care - [address] [place] [address] Azam Falcon MD NO ADDRESS ON FILE Social History Tobacco Use Types Packs/Day Years Used Date Smoking Tobacco: Never Assessed Sex and Gender Information Value Date Recorded Sex Assigned at Not on file Legal Sex Male 5:12 AM DISPLAY CARVER Gender Identity Not on file Sexual Orientation Not on file documented as of this encounter Plan of Treatment Not on file documented as of this encounter Visit Diagnoses Not on filedocumented in this encounter Care Teams Street Superintendent Relationship Specialty Start Date End Date Greg Arnold MD PCP - General Family Practice 11/04/23 02/17/24 documented as of this encounter
--- OUTSIDE RECORDS SUMMARY | 2025-05-09 17:11 | XMS_ITS | Encounter Summary ---
Author Organization [facility] Address [address] [place] [address] Care Team Providers Care Chain Repairer Name Role Phone Greg Arnold MD Primary Care Provider [phone] Encounter Details Date Type Department Care Team (Late st Contact Info) Description 05/02/2000 Outpatient Historical [facility] Primary Care - [address] [place] [address] Azam Falcon MD NO ADDRESS ON FILE Social History Tobacco Use Types Packs/Day Years Used Date Smoking Tobacco: Never Assessed Sex and Gender Information Value Date Recorded Sex Assigned at Not on file Legal Sex Male 5:12 AM COMPUTER HELP DESK SPECIALIST Gender Identity Not on file Sexual Orientation Not on file documented as of this encounter Plan of Treatment Not on file documented as of this encounter Visit Diagnoses Not on filedocumented in this encounter Care Teams Chain Repairer Relationship Specialty Start Date End Date Greg Arnold MD PCP - General Family Practice 11/04/23 02/17/24 documented as of this encounter
--- OUTSIDE RECORDS SUMMARY | 2025-05-09 17:11 | XMS_ITS | Encounter Summary ---
Author Organization [facility] Address [address] [place] [address] Care Team Providers Care Credit Adjuster Name Role Phone rGeg Arnold MD Primary Care Provider [phone] Encounter Details Date Type Department Care Team (Late st Contact Info) Description 08/01/2000 Outpatient Historical [facility] Primary Care - [address] [place] [address] Azam Falcon MD NO ADDRESS ON FILE Social History Tobacco Use Types Packs/Day Years Used Date Smoking Tobacco: Never Assessed Sex and Gender Information Value Date Recorded Sex Assigned at Not on file Legal Sex Male 5:12 AM WEB CONTENT SPECIALIST Gender Identity Not on file Sexual Orientation Not on file documented as of this encounter Plan of Treatment Not on file documented as of this encounter Visit Diagnoses Not on filedocumented in this encounter Care Teams Credit Adjuster Relationship Specialty Start Date End Date Greg Arnold MD PCP - General Family Practice 11/04/23 02/17/24 documented as of this encounter
--- OUTSIDE RECORDS SUMMARY | 2025-05-09 17:11 | XMS_ITS | Encounter Summary ---
Author Organization [facility] Address [address] [place] [address] Care Team Providers Care Revenue Cycle Administrator Name Role Phone Greg Arnold MD Primary Care Provider [phone] Encounter Details Date Type Department Care Team [...] file Legal Sex Male 5:12 AM SAFETY EQUIPMENT TESTING SPECIALIST Gender Identity Not on file Sexual [...] INTERFACE SYSTEM - 09/20/2008 2:08 PM CDT [facility] [address] [place] [address] [email or web address] Patient: Charles Purcell MRN: Study ID: ADULT STRESS ECH Gender: Tavares : 1950 Age: 58 years Race: 1 Room: Bed: Height: Study Date: September 20, 2008 Patient status: Outpatient Weight: Access. #: [id number] POC: Ordering: Shasha Attending MD: Shasha Admitting [...] 14:05:46 Procedure Note Provider, Historical - 09/20/2008 [address] [place] [address] [email or web address] Stress Study Patient: Charles Purcell MRN: Study ID: ADULT STRESS ECH Gender: Tavares : 1950 Age: 58 years Race: 1 Room: Bed: Height: Study Date: September 20, 2008 Patient status: Outpatient Weight: Access. #: [id number] POC: Ordering: Shasha Attending MD: Shasha Admitting [...] unspecified documented in this encounter Care Teams Revenue Cycle Administrator Relationship Specialty Start Date End Date Greg Arnold MD PCP - General Family Practice 11/04/23 02/17/24 documented as of this encounter
--- OUTSIDE RECORDS SUMMARY | 2025-05-09 17:11 | XMS_ITS | Encounter Summary ---
Author Organization [facility] Address [address] [place] [address] Care Team Providers Care Jukebox Checker Name Role Phone Greg Arnold MD Primary Care Provider [phone] Encounter Details Date Type Department Care Team (Late st Contact Info) Description 08/17/1999 Outpatient Historical [facility] Primary Care - [address] [place] [address] Azam Falcon MD NO ADDRESS ON FILE Social History Tobacco Use Types Packs/Day Years Used Date Smoking Tobacco: Never Assessed Sex and Gender Information Value Date Recorded Sex Assigned at Not on file Legal Sex Male 5:12 AM BILLET RECORDER Gender Identity Not on file Sexual Orientation Not on file documented as of this encounter Plan of Treatment Not on file documented as of this encounter Visit Diagnoses Not on filedocumented in this encounter Care Teams Jukebox Checker Relationship Specialty Start Date End Date Greg Arnold MD PCP - General Family Practice 11/04/23 02/17/24 documented as of this encounter
--- OUTSIDE RECORDS SUMMARY | 2025-05-09 17:11 | XMS_ITS | Encounter Summary ---
Author Organization [facility] Address 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
--- OUTSIDE RECORDS SUMMARY | 2025-05-09 17:11 | XMS_ITS | Encounter Summary ---
Author Organization [facility] Address 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
--- OUTSIDE RECORDS SUMMARY | 2025-05-09 17:11 | XMS_ITS | Encounter Summary ---
Author Organization [facility] Address [address] [place] [address] Care Team Providers Care Masonry Supervisor Name Role Phone Greg Arnold MD Primary Care Provider [phone] Encounter Details Date Type Department Care Team (Late st Contact Info) Description 10/16/2007 Orders Only [facility] Primary Care - [address] [place] [address] Azam Falcon MD NO ADDRESS ON FILE Social History Tobacco Use Types Packs/Day Years Used Date Smoking Tobacco: Never Assessed Sex and Gender Information Value Date Recorded Sex Assigned at Not on file Legal Sex Male 5:12 AM CURTAIN FELLER BLINDSTITCH Gender Identity Not on file Sexual Orientation Not on file documented as of this encounter Plan of Treatment Not on file documented as of this encounter Visit Diagnoses Not on filedocumented in this encounter Care Teams Masonry Supervisor Relationship Specialty Start Date End Date Greg Arnold MD PCP - General Family Practice 11/04/23 02/17/24 documented as of this encounter
--- OUTSIDE RECORDS SUMMARY | 2025-05-09 17:11 | XMS_ITS | Encounter Summary ---
Author Organization [facility] Address [address] [place] [address] Care Team Providers Care Sweatband Cutting Machine Operator Name Role Phone Greg Arnold MD Primary Care Provider [phone] Encounter Details Date Type Department Care Team (Latest Contact Info) Description 09/19/2008 Outpatient Historical [facility] Sahtish Pimentel MD NO ADDRESS ON FILE Viral Warts, Unspecified Social History Tobacco Use Types Packs/Day Years Used Date Smoking Tobacco: Never Alcohol Use Standard Drinks/Week Comments Yes 0 (1 standard drink = 0.6 oz pur e alcohol) rare Sex and Gender Information Value Date Recorded Sex Assigned at Not on file Legal Sex Male 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, [place] [address] Patient: CHARLES LONGO : 1950 Procedure Date: 09/21/2008 Accession Date: 09/21/2008 Case No: [id number] Ordering Dr: SATHISH PIMENTEL Case types AW, BW, FW, NW and SH are [place] [facility] [place] SURGICAL PATHOLOGY & NON-GYNECOLOGIC CYTOPATHOLOGY REPORT [...] 05:40 am Microscopic: The slide is labeled [id number] and Charles Longo. 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 NATTY/TERESSA 09.22.2008 05:23 pm Staging Form: No. ELECTRONIC SIGNATURE FOR JOSESITO BLAND M.D.- 09/23/08 07:07 am INTERFACE SYSTEM 09/21/2008 1:55 PM CDT us Sathish Pimentel MD PATHOLOGY/CYTOLOGY ORDERABL ES Final Result Performing Organization Address [facility] de Phone Number INTERFACE SYSTEM Refer to clinic/hospital department * HEMOGLOBIN AND HEMATOCRIT (09/19/2008 1:32 PM CDT) HEMATOCRIT 42.5 40.0 - 48.0 % [facility] HEMOGLOBIN 13.8 13.6 - 16.5 g/dL [facility] Blood specimen (specimen) 09/19/2008 1:32 PM CDT 09/19/2008 3:00 PM CDT us Sathish Pimentel MD HEMATOLOGY ORDERABLES Final Result Performing Organization Address City/[facility]/ZIP Co de Phone Number INTERFACE SYSTEM Refer to clinic/hospital department [facility] CLIA# [id number] [address] [place] [address] documented in this encounter Visit Diagnoses Diagnosis Viral warts, unspecified documented in this encounter Care Teams Sweatband Cutting Machine Operator Relationship Specialty Start Date End Date Greg Arnold MD PCP - General Family Practice 11/04/23 02/17/24 documented as of this encounter
--- OUTSIDE RECORDS SUMMARY | 2025-05-09 17:12 | XMS_ITS | Encounter Summary ---
Author Organization [facility] Address 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
--- OUTSIDE RECORDS SUMMARY | 2025-05-09 17:12 | XMS_ITS | Encounter Summary ---
Author Organization [facility] Address 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 LAST VISIT: 07/23/07 PCP: maria eugenia. ALTERNATIVE PHONE NUMBER: [phone] WHO CALLED: Patient called. CURRENT ALLERGY LIST: [...] 9:56 AM CDT TEMPERATURE: 98??f Oral WEIGHT: [id number] BLOOD PRESSURE: 130/90 Right Arm Sitting NURSE [...] NEW PRESCRIPTION, 09/11/2007. LAB ORDERS: Order number: [id number] Test Ordered: CHLAMYDIA & GC PROBE [id number] Electronically Signed by: Azam [place] MD on August documented in this encounter Plan of Treatment Not on file documented as of this encounter Visit Diagnoses Not on filedocumented in this encounter Care Teams Dining Host Relationship Specialty Start Date End Date Greg Arnold MD PCP - General Family Practice 11/04/23 02/17/24 documented as of this encounter
--- OUTSIDE RECORDS SUMMARY | 2025-05-09 17:12 | XMS_ITS | Encounter Summary ---
Author Organization [facility] Address 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
--- OUTSIDE RECORDS SUMMARY | 2025-05-09 17:12 | XMS_ITS | Encounter Summary ---
Author Organization [facility] Address [address] [place] [address] Care Team Providers Care Fabrication Manager Name Role Phone Greg Arnold MD Primary Care Provider [phone] Encounter Details Date Type Department Care Team (Latest Contact Info) Description 09/11/2007 Outpatient Historical [facility] Primary Care - [address] [place] [address] Azam Falcon MD NO ADDRESS [...] GONORRHOEAE DNA NOT DETECTED NOT DETECTED [facility] Comment: [facility] test performed by: [facility] [id number] [place] [address] ROSINA BALDWIN MD CHLAMYDIA TRACHOMATIS DNA NOT DETECTED NOT DETECTED [facility] Specimen of unknown material (specimen) (Urethral) 09/11/2007 9:33 PM CDT 09/11/2007 9:57 PM CDT us Azam [place] MD BODY FLUIDS AND STOOLS Final Result Performing Organization Address City/State/[facility] Co de Phone Number [facility] [address] [place] [address] documented in this encounter Visit Diagnoses Diagnosis Unspecified nongonococcal urethritis ([place]) documented in this encounter Care Teams Fabrication Manager Relationship Specialty Start Date End Date Greg Arnold MD PCP - General Family Practice 11/04/23 02/17/24 documented as of this encounter
--- OUTSIDE RECORDS SUMMARY | 2025-05-09 17:12 | XMS_ITS | Encounter Summary ---
Author Organization [facility] Address 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
--- OUTSIDE RECORDS SUMMARY | 2025-05-09 17:13 | XMS_ITS | Encounter Summary ---
Author Organization [facility] Address 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 LAST VISIT: PCP: maria eugenia. ALTERNATIVE PHONE NUMBER: [phone] WHO CALLED: Patient called. CURRENT ALLERGY LIST: NO KNOWN ALLERGIES PHARMACY NUMBER: [phone] PROBLEMS: achy all over , tried ziacam, [...] on filedocumented in this encounter Care Teams Grinder Set Up Operator Internal Relationship Specialty Start Date End Date Greg Arnold MD PCP - General Family Practice 11/04/23 02/17/24 documented as of this encounter
--- OUTSIDE RECORDS SUMMARY | 2025-05-09 17:15 | XMS_ITS | Encounter Summary ---
Author Organization [facility] Address [address] [place] [address] Care Team Providers Care Cotton Baler Name Role Phone Greg Arnold MD Primary Care Provider [phone] Encounter Details Date Type Department Care Team (Late st Contact Info) Description 09/23/2007 Orders Only [facility] Primary Care - [facility] [address] [place] [address] [address] [place] [address] Estella Manning MD [address] [place] [address] [address] [place] [address] Social History Tobacco Use Types Packs/Day Years Used Date Smoking Tobacco: Never Assessed Sex and Gender Information Value Date Recorded Sex Assigned at Not on file Legal Sex Male 5:12 AM FAMILY ENGAGEMENT SPECIALIST Gender Identity Not on file Sexual Orientation Not on file documented as of this encounter Progress Notes * Estella Manning MD - 11/06/2007 11:12 AM CDT TIME:02:55 pm PATIENT`S HOME PHONE: PATIENT`S WORK PHONE: PATIENT`S INSURANCE: [facility] WHO TOOK THE CALL: Meggan Cowan A GENERAL INFORMATION PATIENT STATUS: Established Patient. LAST VISIT: 09/11/07 PCP: maria eugenia. ALTERNATIVE PHONE NUMBER: [phone] WHO CALLED: Patient called. CURRENT ALLERGY LIST: NO KNOWN ALLERGIES PHARMACY NUMBER: [phone] PROBLEMS: PINK EYE: Patient complains of pink [...] on filedocumented in this encounter Care Teams Cotton Baler Relationship Specialty Start Date End Date Greg Arnold MD PCP - General Family Practice 11/04/23 02/17/24 documented as of this encounter
--- OUTSIDE RECORDS SUMMARY | 2025-05-09 17:16 | XMS_ITS | Encounter Summary ---
Author Organization [facility] Address 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 LAST VISIT: 01-07-07 PCP: Ezekiel. ALTERNATIVE PHONE NUMBER: [phone] WHO CALLED: Patient called. CURRENT ALLERGY LIST: [...] he is diabetic. 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 The nature of this was discussed with the patient. We talked about adjusting his footwear to protect the area. If he does not improve, he will see a it risk and assurance senior manager. RETURN VISIT : Patient instructed to return in 6 months. Electronically Signed by: Azam Falcon MD on Saturday, May 12, 2007 documented in this encounter Plan of Treatment Not on file documented as of this encounter Visit Diagnoses Not on filedocumented in this encounter Care Teams Rn Resource Nurse Relationship Specialty Start Date End Date Greg Arnold MD PCP - General Family Practice 11/04/23 02/17/24 documented as of this encounter
--- OUTSIDE RECORDS SUMMARY | 2025-05-09 17:16 | XMS_ITS | Encounter Summary ---
Author Organization [facility] Address 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
--- OUTSIDE RECORDS SUMMARY | 2025-05-09 17:16 | XMS_ITS | Encounter Summary ---
Author Organization [facility] Address 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
--- OUTSIDE RECORDS SUMMARY | 2025-05-09 17:16 | XMS_ITS | Encounter Summary ---
Author Organization [facility] Address 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
--- OUTSIDE RECORDS SUMMARY | 2025-05-09 17:16 | XMS_ITS | Encounter Summary ---
Author Organization [facility] Address 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 Advised treatment and additional testing. Advised of future risk of spread. MEDICATIONS: VALTREX ORAL TABLET 1 GM, 1 Two Times A Day, 20 Dispensed, status: NEW PRESCRIPTION, 01/07/2007. LAB ORDERS: Order number: [id number] Test Ordered: RPR 5100 Order number: [id number] Test Ordered: CHLAMYDIA/N. GONORRHOEAE, AMPLIFIED DNA 2081 Electronically Signed by: Azam Falcon MD on Sunday, January 14, 2007 documented in this encounter Plan of Treatment Not on file documented as of this encounter Visit Diagnoses Not on filedocumented in this encounter Care Teams Government Relations Analyst Relationship Specialty Start Date End Date Greg Arnold MD PCP - General Family Practice 11/04/23 02/17/24 documented as of this encounter
--- OUTSIDE RECORDS SUMMARY | 2025-05-09 17:16 | XMS_ITS | Encounter Summary ---
Author Organization [facility] Address [address] [place] [address] Care Team Providers Care Metalsmith Name Role Phone Greg Arnold MD Primary Care Provider [phone] Encounter Details Date Type Department Care Team (Late st Contact Info) Description 01/07/2007 Outpatient Historical [facility] Primary Care - [address] [place] [address] Azam Falcon MD NO ADDRESS ON FILE Social History Tobacco Use Types Packs/Day Years Used Date Smoking Tobacco: Never Assessed Sex and Gender Information Value Date Recorded Sex Assigned at Not on file Legal Sex Male 5:12 AM OUTREACH PROFESSIONAL Gender Identity Not on file Sexual Orientation Not on file documented as of this encounter Plan of Treatment Not on file documented as of this encounter Visit Diagnoses Not on filedocumented in this encounter Care Teams Metalsmith Relationship Specialty Start Date End Date Greg Arnold MD PCP - General Family Practice 11/04/23 02/17/24 documented as of this encounter
--- OUTSIDE RECORDS SUMMARY | 2025-05-09 17:16 | XMS_ITS | Encounter Summary ---
Author Organization [facility] Address [address] [place] [address] Care Team Providers Care Block Hand Name Role Phone Greg Arnold MD Primary Care Provider [phone] Encounter Details Date Type Department Care Team (Latest Contact Info) Description 11/07/2006 Outpatient Historical [facility] Care - [address] [place] [address] Azam Falcon MD NO ADDRESS ON FILE Special Screening for Malignant Neoplasm of Prostate (Primary Dx) Social History Tobacco Use Types Packs/Day Years Used Date Smoking Tobacco: Never Assessed Sex and Gender Information Value Date Recorded Sex Assigned at Not on file Legal Sex Male 5:12 AM ALLERGIST/IMMUNOLOGIST Gender Identity Not on file Sexual Orientation Not on file documented as of this encounter Plan of Treatment Not on file documented as of this encounter Visit Diagnoses Diagnosis Special screening for malignant neoplasm of prostate- Primary documented in this encounter Care Teams Block Hand Relationship Specialty Start Date End Date Greg Arnold MD PCP - General Family Practice 11/04/23 02/17/24 documented as of this encounter
--- OUTSIDE RECORDS SUMMARY | 2025-05-09 17:16 | XMS_ITS | Encounter Summary ---
Author Organization [facility] Address [address] [place] [address] Care Team Providers Care Oyster Bed Worker Name Role Phone Greg Arnold MD Primary Care Provider [phone] Encounter Details Date Type Department Care Team (Latest Contact Info) Description 04/16/2007 Outpatient Historical [facility] Primary Care - [address] [place] [address] Azam Falcon MD NO ADDRESS ON FILE Other Abnormal Glucose (Primary Dx) Social History Tobacco Use Types Packs/Day Years Used Date Smoking Tobacco: Never Assessed Sex and Gender Information Value Date Recorded Sex Assigned at Not on file Legal Sex Male 5:12 AM JACQUARD CARD LACER Gender Identity Not on file Sexual Orientation Not on file documented as of this encounter Plan of Treatment Not on file documented as of this encounter Procedures Procedure Name Priority Date/Time Associated Diagnosis Comments HEMOGLOBIN A1C Routine 04/16/2007 5:24 PM JACQUARD CARD LACER GLUCOSE LEVEL Routine 04/16/2007 5:24 PM JACQUARD CARD LACER documented in this encounter Results * HEMOGLOBIN A1C (04/16/2007 5:24 PM JACQUARD CARD LACER) HEMOGLOBIN A1C 6.1 4.1 - 6.1 % of Hgb INTERFACE SYSTEM GLUCOSE, MEAN BLOOD 140 mg/dL INTERFACE SYSTEM 04/16/2007 5:24 PM JACQUARD CARD LACER us Azam Falcon MD CHEMISTRY ORDERABLES Edited INTERFACE SYSTEM Refer to clinic/hospital department * GLUCOSE LEVEL (04/16/2007 5:24 PM JACQUARD CARD LACER) GLUCOSE 86 65 - 99 mg/dL INTERFACE SYSTEM 04/16/2007 5:24 PM JACQUARD CARD LACER us Azam Falcon MD CHEMISTRY ORDERABLES Edited INTERFACE SYSTEM Refer to clinic/hospital department documented in this encounter Visit Diagnoses Diagnosis Other abnormal glucose- Primary documented in this encounter Care Teams Oyster Bed Worker Relationship Specialty Start Date End Date Greg Arnold MD PCP - General Family Practice 11/04/23 02/17/24 documented as of this encounter
--- OUTSIDE RECORDS SUMMARY | 2025-05-09 17:16 | XMS_ITS | Encounter Summary ---
Author Organization [facility] Address 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 LAST VISIT: 11-07-06 PCP: Ezekiel. ALTERNATIVE PHONE NUMBER: [phone] WHO CALLED: Patient called. CURRENT ALLERGY LIST: [...] on filedocumented in this encounter Care Teams Wound Nurse Relationship Specialty Start Date End Date Greg Arnold MD PCP - General Family Practice 11/04/23 02/17/24 documented as of this encounter
--- OUTSIDE RECORDS SUMMARY | 2025-05-09 17:16 | XMS_ITS | Encounter Summary ---
Author Organization [facility] Address [address] [place] [address] Care Team Providers Care Online Media Director Name Role Phone Greg Arnold MD Primary Care Provider [phone] Encounter Details Date Type Department Care Team (Late st Contact Info) Description 07/23/2007 Outpatient Historical [facility] Primary Care - [facility] [address] [facility] [address] [place] [address] Estella Manning MD [address] [place] [address] [address] [place] [address] Social History Tobacco Use Types Packs/Day Years Used Date Smoking Tobacco: Never Assessed Sex and Gender Information Value Date Recorded Sex Assigned at Not on file 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
--- OUTSIDE RECORDS SUMMARY | 2025-05-09 17:16 | XMS_ITS | Encounter Summary ---
Author Organization [facility] Address 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
--- OUTSIDE RECORDS SUMMARY | 2025-05-09 17:16 | XMS_ITS | Encounter Summary ---
Author Organization [facility] Address 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
--- OUTSIDE RECORDS SUMMARY | 2025-05-09 17:16 | XMS_ITS | Encounter Summary ---
Author Organization [facility] Address [address] [place] [address] Care Team Providers Care Silk Blocker Name Role Phone Greg Arnold MD Primary Care Provider [phone] Encounter Details Date Type Department Care Team (Late st Contact Info) Description 07/23/2007 Outpatient Historical [facility] Primary Care - 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
--- OUTSIDE RECORDS SUMMARY | 2025-05-09 17:16 | XMS_ITS | Encounter Summary ---
Author Organization [facility] Address 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
--- OUTSIDE RECORDS SUMMARY | 2025-05-09 17:16 | XMS_ITS | Encounter Summary ---
Author Organization [facility] Address [address] [place] [address] Care Team Providers Care Child And Adolescent Therapist Name Role Phone Greg Arnold MD Primary Care Provider [phone] Encounter Details Date Type Department Care Team (Latest Contact Info) Description 01/07/2007 Outpatient Historical [facility] Primary Care - [address] [place] [address] Azam Falcon MD NO ADDRESS ON FILE Unspecified Genital Herpes (Primary Dx) Social History Tobacco Use Types Packs/Day Years Used Date Smoking Tobacco: Never Assessed Sex and Gender Information Value Date Recorded Sex Assigned at Not on file 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 GONORRHOEAE, DNA (01/07/2007 2:13 PM CDT) CHLAMYDIA TRACHOMATIS DNA NOT DETECTED NOT DETECTED INTERFACE SYSTEM NEISSERIA GONORRHOEAE DNA NOT DETECTED NOT DETECTED INTERFACE SYSTEM Comment: Lab test performed by: [email or web address] [id number] [address] ROSINA BALDWIN 01/07/2007 2:13 PM CDT Azam Falcon MD BODY FLUIDS AND STOOLS Edited Performing Organization Address City/[facility] Co de Phone Number INTERFACE SYSTEM Refer to clinic/hospital department documented in this encounter Visit Diagnoses Diagnosis Genital herpes, unspecified- Primary documented in this encounter Care Teams Child And Adolescent Therapist Relationship Specialty Start Date End Date Greg Arnold MD PCP - General Family Practice 11/04/23 02/17/24 documented as of this encounter
--- OUTSIDE RECORDS SUMMARY | 2025-05-09 17:16 | XMS_ITS | Encounter Summary ---
Author Organization [facility] Address 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 PCP: pc. [facility] PHONE NUMBER: [phone] WHO CALLED: Patient called. PHARMACY NUMBER: [phone] SECTION 1: REQUESTED ACTION peisgm 12/23/06 at [...] on filedocumented in this encounter Care Teams Keyboarding Clerk Relationship Specialty Start Date End Date Greg Arnold MD PCP - General Family Practice 11/04/23 02/17/24 documented as of this encounter
--- OUTSIDE RECORDS SUMMARY | 2025-05-09 17:16 | XMS_ITS | Encounter Summary ---
Author Organization [facility] Address 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 LAB ORDERS: Order number: [id number] Test Ordered: BASIC METABOLIC PANEL & GFR 1607 V70.0-ROUTINE GENERAL MEDICAL EXAMINATION He needs weight reduction and a greater level of exercise. This was discussed. Routine screening was discussed. He is up-to-date with a colonoscopy 3 years ago with negative findings and with his family history a 10 year follow-up would be recommended at this time. LAB ORDERS: Order number: [id number] Test Ordered: LIPID PANEL 1078 V76.44-SCREEN FOR CA OF PROSTATE Check PSA. LAB ORDERS: Order number: [id number] Test Ordered: PSA, TOTAL 1002 078.19-WART Lesions were treated with liquid nitrogen on the extremities and trunk. LAB ORDERS: Order number: [id number] Test Ordered: DESTRUCTION BENIGN LESIONS TO 14 [id number] Electronically Signed by: Azam Falcon MD on Sunday, November 12, 2006 documented in this encounter Plan of Treatment Not on file documented as of this encounter Visit Diagnoses Not on filedocumented in this encounter Care Teams Air Tucker Relationship Specialty Start Date End Date Greg Arnold MD PCP - General Family Practice 11/04/23 02/17/24 documented as of this encounter
[2025-05-09 19:23] LABS: MALB Creatinine Ratio 8.5 mg/g (0-30)
== END 2025-05-09 13:53 | disposition home or self-care (01) ==
LOC: ANHGOSHLAB 13:53
PROVIDERS: PCP Nurse Practitioner Family; Visit Provider Nurse Practitioner Family
DX: E11.9 Type 2 diabetes mellitus without complications (principal)
CPT/HCPCS: 82043